=== PATIENT | female | born 1955 | race Caucasian/White ===

== ENCOUNTER 2021-05-17 08:00 | Outpatient (CLI) | payer MEDICARE, OTHER | END 2021-05-17 23:59 | disposition home or self-care (01) | LOC: LAB.S 08:00 | PROVIDERS: ATTEND Physician Assistant Medical | DX: R11.2 Nausea with vomiting, unspecified (principal); R19.7 Diarrhea, unspecified; R10.9 Unspecified abdominal pain; Z20.822 Contact with and (suspected) exposure to COVID-19 | CPT/HCPCS: 36415; 80053; 82150; 83690; 85025; U0004 ==

== ENCOUNTER 2021-05-17 10:16 | Outpatient (CLI) | payer MEDICARE, OTHER ==
[2021-05-17 15:14] LABS: BASOPHILS % (AUTO) 0.4 %; EOSINOPHILS # (AUTO) 0.2 10^3/uL (0.0-0.7); EOSINOPHILS % (AUTO) 2.6 %; HGB - HEMOGLOBIN 14.2 g/dL (12.0-16.0); LYMPHOCYTES # (AUTO) 0.3 10^3/uL (1.5-3.5); LYMPHOCYTES % (AUTO) 3.6 %; MEAN CORPUSCULAR HEMOGLOBIN 29.8 pg (27.0-31.0); MEAN CORPUSCULAR HGB CONC 32.3 g/dL (32.0-36.0); MEAN CORPUSCULAR VOLUME 92.4 fL (81.0-99.0); MONOCYTES # (AUTO) 0.7 10^3/uL (0.0-1.0); MONOCYTES % (AUTO) 7.5 %; NEUTROPHILS % (AUTO) 85.6 %; PLT - PLATELET COUNT 117 10^3/uL (130-450); RED BLOOD COUNT 4.76 10^6/uL (4.20-5.40); RED CELL DISTRIBUTION WIDTH 13.3 % (12.0-15.0); WHITE BLOOD COUNT 9.4 x10^3/uL (4.8-10.8)
[2021-05-17 15:31] LABS: SLIDE REVIEW? Indicated
[2021-05-17 16:18] LABS: PLATELET ESTIMATE, MANUAL DECREASED (<130,000) (NORMAL); PLATELET MORPHOLOGY NORMAL APPEARANCE (NORMAL); RBC MORPHOLOGY (MULTIPLE) NORMAL APPEARANCE (NORMAL); WBC MORPHOLOGY (MULTIPLE) NORMAL APPEARANCE (NORMAL)
[2021-05-17 16:20] LABS: ALBUMIN 3.9 g/dL (3.2-5.5); ALBUMIN/GLOBULIN RATIO 1.2 (1.0-2.2); BILIRUBIN,TOTAL 1.7 mg/dL (0.2-1.0); CALCIUM 9.1 mg/dL (8.5-10.3); CREATININE 1.1 mg/dL (0.4-1.0); POTASSIUM 3.9 mmol/L (3.5-5.0); TOTAL PROTEIN 7.1 g/dL (6.7-8.2)
== END 2021-05-17 10:17 | disposition home or self-care (01) ==
LOC: LAB.S 10:16
PROVIDERS: ATTEND Physician Assistant Medical
DX: R11.2 Nausea with vomiting, unspecified (principal); R19.7 Diarrhea, unspecified; R10.9 Unspecified abdominal pain
CPT/HCPCS: 36415; 80053; 82150; 83690; 85025

== ENCOUNTER 2021-05-18 13:51 | Inpatient (IN) | payer MEDICARE, OTHER ==
[2021-05-18] MEDS ORDERED: SODIUM CHLORIDE 0.9% 2,993.7 ML IV STA (14:30)
[2021-05-18 15:03] LABS: BASOPHILS # (AUTO) 0.1 10^3/uL (0.0-0.1); BASOPHILS % (AUTO) 0.6 %; EOSINOPHILS # (AUTO) 0.1 10^3/uL (0.0-0.7); EOSINOPHILS % (AUTO) 1.1 %; HCT - HEMATOCRIT 38.5 % (37.0-47.0); HGB - HEMOGLOBIN 12.6 g/dL (12.0-16.0); LYMPHOCYTES # (AUTO) 0.4 10^3/uL (1.5-3.5); LYMPHOCYTES % (AUTO) 3.8 %; MEAN CORPUSCULAR HEMOGLOBIN 29.9 pg (27.0-31.0); MEAN CORPUSCULAR HGB CONC 32.7 g/dL (32.0-36.0); MEAN CORPUSCULAR VOLUME 91.2 fL (81.0-99.0); MONOCYTES # (AUTO) 0.9 10^3/uL (0.0-1.0); MONOCYTES % (AUTO) 8.2 %; NEUTROPHILS # (AUTO) 9.5 10^3/uL (1.5-6.6); NEUTROPHILS % (AUTO) 85.9 %; PLT - PLATELET COUNT 134 10^3/uL (130-450); RED BLOOD COUNT 4.22 10^6/uL (4.20-5.40); RED CELL DISTRIBUTION WIDTH 13.7 % (12.0-15.0)
[2021-05-18 15:16] LABS: ALBUMIN 3.3 g/dL (3.2-5.5); ALBUMIN/GLOBULIN RATIO 1.2 (1.0-2.2); BILIRUBIN,TOTAL 1.4 mg/dL (0.2-1.0); CALCIUM 8.3 mg/dL (8.5-10.3); CREATININE 3.1 mg/dL (0.4-1.0); POTASSIUM 4.1 mmol/L (3.5-5.0); SLIDE REVIEW? Indicated; TOTAL PROTEIN 6.1 g/dL (6.7-8.2)
[2021-05-18 15:28] LABS: DIFFERENTIAL COMMENT MANUAL=AUTO DIFF; PLATELET ESTIMATE, MANUAL NORMAL (130-450,000) (NORMAL); PLATELET MORPHOLOGY NORMAL APPEARANCE (NORMAL); RBC MORPHOLOGY (MULTIPLE) NORMAL APPEARANCE (NORMAL)
--- NOTE | 2021-05-18 16:35 | ED Physician Documentation ---
History of Present Illness - Stated complaint Stated Complaint: DIARRHEA - Chief complaint Chief Complaint: Abd Pain - History obtained from History obtained from: Patient, Family - History of Present Illness Timing: How many weeks ago (1) Pain level max: 0 Pain level now: 0 - Additonal information Additional information: Patient is a 66-year-old female visiting from [place]. She is brought in by her today. She has recently on amoxicillin, upon finishing this she has developed profuse diarrhea. 10-12 times per day. No fevers. Seen at the walk- in clinic yesterday. Worsening today so brought her here. No fevers. No chills. He is concerned about potential dehydration. She has decreased mental status as well. Review of Systems Constitutional: denies: Fever, Chills GI: reports: Diarrhea. denies: Vomiting, Hematemesis, Bloody / black stool : denies: Dysuria, Frequency, Hesitancy Skin: denies: Rash Musculoskeletal: denies: Neck pain, Back pain Neurologic: denies: Headache PD PAST MEDICAL HISTORY - Past Medical History Past Medical History: Yes - Past Surgical History Past Surgical History: Yes General: Cholecystectomy - Allergies Allergies/Adverse Reactions: Allergies Allergy/AdvReac Type Severity Reaction Status Date / Time No Known Drug Allergies Allergy Verified 05/18/21 14:01 - Living Situation Living Situation: reports: With family Living Arrangement: reports: At home - Social History Does the pt smoke?: No Smoking Status: Never smoker Does the pt have substance abuse?: No - Family History Family history: reports: Non contributory PD ED PE NORMAL - Vitals Vital signs reviewed: Yes - General General: No acute distress, Well developed/nourished (Drowsy but arousable, pale) - HEENT HEENT: Atraumatic, PERRL, Other (Dry lips and tongue) - Neck Neck: Supple, no meningeal sign - Cardiac Cardiac: RRR - Respiratory Respiratory: No respiratory distress, Clear bilaterally - Abdomen Abdomen: Soft, Non tender, Non distended - Derm Derm: Other (Cool, dry) - Extremities Extremities: No edema - Neuro Neuro: wash test checker 2-12 intact, No motor deficit, No sensory deficit Results - Vitals Vitals: Vital Signs - 24 hr 05/18/21 05/18/21 05/18/21 14:01 14:42 15:12 Temperature 36.5 C Heart Rate 92 86 88 Respiratory 16 21 21 Rate Blood Pressure 80/50 L 90/59 L 87/56 L O2 Saturation 86 L 94 96 05/18/21 05/18/21 05/18/21 15:30 16:00 16:29 Temperature Heart Rate 89 89 92 Respiratory 17 20 21 Rate Blood Pressure 97/60 93/60 93/60 O2 Saturation 97 97 96 Oxygen O2 Source Room air - Labs Labs: Laboratory Tests 05/18/21 05/18/21 05/18/21 14:50 14:50 14:50 WBC 11.0 H RBC 4.22 Hgb 12.6 Hct 38.5 MCV 91.2 MCH 29.9 MCHC 32.7 RDW 13.7 Plt Count 134 MPV 12.0 H Neut # (Auto) 9.5 H Lymph # (Auto) 0.4 L Carlisle # (Auto) 0.9 Eos # (Auto) 0.1 Baso # (Auto) 0.1 Absolute Nucleated RBC 0.00 Band Neuts % (Manual) Not Reportable Abnorm Lymph % (Manual) Not Reportable Nucleated RBC % 0.0 Neutrophils # (Manual) Not Reportable Lymphocytes # (Manual) Not Reportable Monocytes # (Manual) Not Reportable Eosinophils # (Manual) Not Reportable Basophils # (Manual) Not Reportable Differential Comment MANUAL=AUTO DIFF Manual Slide Review Indicated Platelet Estimate NORMAL (130-450,000) Platelet Morphology NORMAL APPEARANCE RBC Morph Micro Appear NORMAL APPEARANCE Sodium 134 L Potassium 4.1 Chloride 97 L Carbon Dioxide 26 Anion Gap 11.0 BUN 34 H Creatinine 3.1 H Estimated GFR (MDRD) 15 L Glucose 112 H Lactic Acid 1.3 Calcium 8.3 L Total Bilirubin 1.4 H AST 23 ALT 22 Alkaline Phosphatase 75 Total Protein 6.1 L Albumin 3.3 Globulin 2.8 Albumin/Globulin Ratio 1.2 Nasal Adenovirus (PCR) Nasal B. parapertussis DNA (PCR) Nasal Coronavir 229E PCR Nasal Coronavir HKU1 PCR Nasal Coronavir NL63 PCR Nasal Coronavir OC43 PCR Nasal Enterovir/Rhinovir PCR Nasal Influenza B PCR Nasal Influenza A PCR Nasal Parainfluen 1 PCR Nasal Parainfluen 2 PCR Nasal Parainfluen 3 PCR Nasal Parainfluen 4 PCR Nasal RSV (PCR) Nasal B.pertussis DNA PCR Nasal C.pneumoniae (PCR) Praneeth Human Metapneumo PCR Nasal M.pneumoniae (PCR) Nasal SARS-CoV-2 (PCR) 05/18/21 16:07 WBC RBC Hgb Hct MCV MCH MCHC RDW Plt Count MPV Neut # (Auto) Lymph # (Auto) Carlisle # (Auto) Eos # (Auto) Baso # (Auto) Absolute Nucleated RBC Band Neuts % (Manual) Abnorm Lymph % (Manual) Nucleated RBC % Neutrophils # (Manual) Lymphocytes # (Manual) Monocytes # (Manual) Eosinophils # (Manual) Basophils # (Manual) Differential Comment Manual Slide Review Platelet Estimate Platelet Morphology RBC Morph Micro Appear Sodium Potassium Chloride Carbon Dioxide Anion Gap BUN Creatinine Estimated GFR (MDRD) Glucose Lactic Acid Calcium Total Bilirubin AST ALT Alkaline Phosphatase Total Protein Albumin Globulin Albumin/Globulin Ratio Nasal Adenovirus (PCR) NOT DETECTED Nasal B. parapertussis DNA (PCR) NOT DETECTED Nasal Coronavir 229E PCR NOT DETECTED Nasal Coronavir HKU1 PCR NOT DETECTED Nasal Coronavir NL63 PCR NOT DETECTED Nasal Coronavir OC43 PCR NOT DETECTED Nasal Enterovir/Rhinovir PCR NOT DETECTED Nasal Influenza B PCR NOT DETECTED Nasal Influenza A PCR NOT DETECTED Nasal Parainfluen 1 PCR NOT DETECTED Nasal Parainfluen 2 PCR NOT DETECTED Nasal Parainfluen 3 PCR NOT DETECTED Nasal Parainfluen 4 PCR NOT DETECTED Nasal RSV (PCR) NOT DETECTED Nasal B.pertussis DNA PCR NOT DETECTED Nasal C.pneumoniae (PCR) NOT DETECTED Praneeth Human Metapneumo PCR NOT DETECTED Nasal M.pneumoniae (PCR) NOT DETECTED Nasal SARS-CoV-2 (PCR) NOT DETECTED PD MEDICAL DECISION MAKING - ED course Complexity details: reviewed results, re-evaluated patient, considered differential, d/w patient, d/w family, d/w search engine optimization consultant ED course: 66-year-old female with profound dehydration. She has acute kidney injury. Very volume contracted. IV was started. IV fluids given. Her perfusion improved. Her mental status improved as well. Skin is warm and dry. She has acute kidney injury. Possible C. difficile? We will need this tested. We will admit her to the hospital for further care. Discussed the case with Dr. Snow, hospitalist who accepts This document was made in part using voice recognition software. While efforts are made to proofread this document, sound alike and grammatical errors may occur. Departure - Departure Disposition: ED Place in Observation Clinical Impression: Dehydration, Hypotension Acute renal failure Qualifiers: Acute renal failure type: unspecified Qualified Code(s): N17.9 - Acute kidney failure, unspecified Diarrhea Qualifiers: Diarrhea type: unspecified type Qualified Code(s): R19.7 - Diarrhea, unspecified Altered mental status Qualifiers: Altered mental status type: unspecified Qualified Code(s): R41.82 - Altered mental status, unspecified Condition: Stable
[2021-05-18] MEDS ORDERED: PROCHLORPERAZINE 10 MG/2 ML VIAL IVP PRN (16:52)
[2021-05-18] MEDS ORDERED: ONDANSETRON 4 MG/2 ML VIAL IVP PRN (16:52)
[2021-05-18] MEDS ORDERED: ACETAMINOPHEN 325 MG TABLET PO PRN (16:52)
[2021-05-18] MEDS ORDERED: SODIUM CHLORIDE FLUSH 0.9% 10 ML SYRINGE IVP PRN (16:52)
[2021-05-18 17:05] LABS: B. PARAPERTUSSIS- RESP PCR PAN NOT DETECTED; B. PERTUSSIS- RESP PCR PANEL NOT DETECTED; C. PNEUMONIAE- RESP PCR PANEL NOT DETECTED; CORONAVIRUS 229E-RESP PCR NOT DETECTED; CORONAVIRUS HKU1-RESP PCR NOT DETECTED; CORONAVIRUS NL63-RESP PCR NOT DETECTED; CORONAVIRUS OC43-RESP PCR NOT DETECTED; HUMAN METAPNEUMOVIRUS NOT DETECTED; INFLUENZA A- RESP PCR PANEL NOT DETECTED; INFLUENZA B - RESP PCR PANEL NOT DETECTED; M. PNEUMONIAE- RESP PCR PANEL NOT DETECTED; PARAINFLUENZA VIRUS 1 NOT DETECTED; PARAINFLUENZA VIRUS 2 NOT DETECTED; PARAINFLUENZA VIRUS 3 NOT DETECTED; PARAINFLUENZA VIRUS 4 NOT DETECTED; RHINOVIRUS/ENTEROVIRUS NOT DETECTED; RSV- RESP PCR PANEL NOT DETECTED; SARS-CoV-2 -RESP PCR PANEL NOT DETECTED
--- NOTE | 2021-05-18 17:08 | HISTORY & PHYSICAL EXAMINATION ---
Chief Complaint - Chief Complaint Chief Complaint: diarrhea History of Present Illness - Admitted From Admitted From:: ER - History Obtained From Records Reviewed: [facility] History obtained from: Patient and patient's Exam Limitations: no - History of Present Illness HPI Comment/Other: This is a 66-years old female with a past medical history significant for Hypertension, rheumatoid arthritis, depression and anxiety, Obese, Who present to ER complain of diarrhea And delirious. Now patient is alert and orientated. She reported she travel from [place] to [place] [facility] To visit her family. She had Cipro antibiotics which was prescribed at April 21 For her urinary tract infection. She taken 1 week Cipro. She suddenly showed diarrhea on last week Monday. Then she developed nausea and vomiting on Monday, She also visited walk-in clinic on yesterday. she became delirious on today. She take Imodium but only show little help. She denies fever, report chill. She denies chest pain, shortness of breathing. She also report right lower quadrant abdominal pain. She denies history of heart issue or diabetic disease. In the ER, her systolic blood pressure was down to 60. In routine laboratory tests that show patient had slightly elevated WBC at 11, creatinine is 3.1, her yesterday creatinine is 1.1. Patient was given 3 L normal saline in the ER, her Systolic blood pressure go up to 93, Now her systolic blood pressure was 76 again. Discussed the care plan And care goal with patient, Patient clearly requests DNR For her code status History - Family & Social History Family History: Mother: Alive and Well, Father: Family History Comment/Other: Patient reported her father at age 78 from liver cancer, Her mother is still living at age 91, She had a uterine cancer Social History Notes: Patient denies history of cigarette smoke, alcohol abuse or drug issue. She had 3 children. She live at her [place] [employer] - Allergies Allergies/Adverse Reactions: Allergies Allergy/AdvReac Type Severity Reaction Status Date / Time No Known Drug Allergies Allergy Verified 05/18/21 14:01 Review of Systems - Constitutional Constitutional: reports: Chills. denies: Fever - Eyes Eyes: denies: Pain, Field loss, Vision loss - Ears, Nose & Throat Ears, Nose & Throat: denies: Ear pain, Nosebleeds, Bleeding gums - Cardiovascular Cariovascular: denies: Irregular heart rate, Palpitations, Chest pain, Syncope, Exertional dyspnea, Decr. exercise tolerance - Respiratory Respiratory: denies: Cough, SOB at rest, SOB with exertion - Gastrointestinal Gastrointestinal: reports: Abdominal pain, Diarrhea, Nausea, Vomiting. denies: Rectal bleeding - Genitourinary Genitourinary: denies: Dysuria, Urgency - Musculoskeletal Musculoskeletal: denies: Muscle pain - Integumentary Integumentary: denies: Rash - Neurological Neurological: denies: Focal weakness, Headache, Dizziness, Numbness, Pre-e xisting deficit, Abnormal gait, Seizures, Incoordination, Slurred speech - Psychiatric Psychiatric: denies: Depression, Anxiety - Endocrine Endocrine: denies: Polyuria - Hematologic/Lymphatic Hematologic/Lymphatic: denies: Anemia Exam - Vital Signs Vital Signs: Vital Signs x48h Temp Pulse Resp BP Pulse Ox 05/18/21 16:29 92 21 93/60 96 05/18/21 16:00 89 20 93/60 97 05/18/21 15:30 89 17 97/60 97 05/18/21 15:12 88 21 87/56 L 96 05/18/21 14:42 86 21 90/59 L 94 05/18/21 14:01 36.5 C 92 16 80/50 L 86 L - Physical Exam General Appearance: positive: No acute distress, Alert. negative: Lethargic Eyes Bilateral: positive: Normal inspection, PERRL, No lid inflammation ENT: positive: ENT inspection nml. negative: Purulent nasal drainage Neck: positive: Nml inspection, Trachea midline. negative: Thyromegaly, Tracheal deviation Respiratory: positive: Chest non-tender, No respiratory distress, Breath sounds nml. negative: Wheezes, Rales Cardiovascular: positive: Regular rate & rhythm, No murmur. negative: Tachycardia, Bradycardia, Systolic murmur, Diastolic murmur Peripheral Pulses: positive: 2+ Abdomen: positive: Non-tender, No distention, Tenderness, Abnml bowel sounds, Other (Hypoactive bowel sounds) Back: positive: Nml inspection Skin: positive: Color nml, Warm, Dry. negative: Cyanosis Extremities: positive: Non-tender, Nml appearance Neurologic/Psychiatric: positive: Oriented x3, Sensation nml, Mood/affect nml. negative: Weakness, Sensory loss, Facial droop, Slurred/abnml speech, Depressed mood/affect Conclusion/Plan - Problem List (1) Hypotension Conclusion/Plan: Her last the blood pressure when I assessed her, it is 76/50 But the patient is alert and orientated. Patient reported severe diarrhea in the home For nearly 1 week. Patient traveled from [place] to [facility]. Patient creatinine is 3.1 on today, she had 1.1 yesterday. Hypotension is likely caused by severe dehydration, which present Diarrhea, nausea and vomiting. ER already give the patient 3 liter of normal saline, we will bolus NS, and continue intravenous IV fluids for patient. We will closely vital signs monitor patient and watch if pt need ICU bed for her Hemodynamic stable. Hold the patient Home blood pressure medicine (2) Diarrhea Conclusion/Plan: Patient take Cipro about 3 weeks ago for her UTI. Now she suddenly developed diarrhea and right lower quadrant abdominal pain. Also patient traveling from [place] to [facility] recently. Patient creatinine is 3.1, we may have imaging study after the patient proved Renal function. We will test for C. difficile, ova/parasite, stool culture. We will give patient intravenous IV fluids, continue crime laboratory analyst. (3) CARLOS (acute kidney injury) Conclusion/Plan: Patient creatinine 3.1 on today she had 1.1 on yesterday. Patient present diarrhea, nausea, vomiting, Severe dehydration. Patient was given 3 liter IV fluids in the ER, we will continue aggressive intravenous IV fluids for patient. Continue crime laboratory analyst,avoid Nephrotoxic agent. (4) Delirium Conclusion/Plan: Patient's report patient developed delirium today but right now when I assessment patient, patient is alert orientated. it is resolved. We will do neuro Check, treat her underlying severe dehydration, Diarrhea and nausea and vomiting. (5) Right lower quadrant abdominal pain Conclusion/Plan: Patient reported right lower quadrant abdominal pain with tender. Patient has no image study in the ER. Patient creatinine 3.1 Right now. If patient continues complain abdominal pain and creatinine improved on tomorrow, we will have imaging study for patient. Order pain medication for pain control, Clear liquid diet - Lab Results Fish Bones: 05/18/21 14:50 05/18/21 14:50 Core Measures - Anticipated LOS I expect patient to be DC'd or transferred within 96 hours.: Yes - DVT/VTE - Prophylaxis VTE/DVT Device ordered at admit?: Yes VTE/DVT Prophylaxis med ordered at admit?: Yes
[2021-05-18] MEDS ORDERED: ELECTROLYTE-A SOLUTION 1,000 ML IV ONE (17:50)
[2021-05-18] MEDS ORDERED: SODIUM CHLORIDE 0.9% 500 ML IV ONE (17:53)
[2021-05-18] MEDS ORDERED: oxyCODONE 5 MG TABLET PO PRN (18:09)
[2021-05-18] MEDS: SODIUM CHLORIDE 0.9% 1,000 ML IV SCH (18:11)
[2021-05-18] MEDS: SODIUM CHLORIDE FLUSH 0.9% 10 ML SYRINGE IVP SCH (18:11)
[2021-05-18] MEDS ORDERED: PIPERACILLIN/TAZOBACTAM 3.375 GM in SODIUM CHLORIDE 0.9% MINIBAG 100 ML IV ONE (19:00)
--- NOTE | 2021-05-18 20:02 | CT Report ---
PROCEDURE: Abdomen/Pelvis WO INDICATIONS: right lower quadrant pain TECHNIQUE: Noncontrast 5 mm thick sections acquired from the diaphragms to the symphysis. 5 mm coronal and sagi ttal reformats were then performed. For radiation dose reduction, the following was used: automated exposure control, adjustment of mA and/or kV according to patient size. COMPARISON: None. FINDINGS: Image quality: Excellent. ABDOMEN: Lung bases: Trace bilateral pleural effusion and patchy bibasilar infiltrate/atelectasis are seen. He art size is normal. Solid organs: Liver and spleen are normal in size. Gallbladder is surgically absent. Pancreas is n ormal in contours. No adrenal nodules. Left kidney is slightly atrophic in size compared to the righ t side. There is no renal stone or hydronephrosis. No perinephric fat stranding. No hydroureter. Peritoneum and bowel: There is no evidence of bowel obstruction. No gastric or small bowel wall thick ening is noted. There is no evidence of acute appendicitis. Moderate circumferential wall thickening involving mid to distal descending colon and sigmoid colon is seen most prominent involving mid to di stal sigmoid colon within right lower pelvis with pericolonic fat stranding. No abscess collection. N o free fluid of free air. Nodes and vessels: No retroperitoneal or mesenteric adenopathy by size criteria. Aorta and inferior vena cava are normal in caliber. Miscellaneous: No ventral hernias. PELVIS: Genitourinary: Bladder wall thickness is normal. Uterus and bilateral adnexa show no gross abnormal ity. Miscellaneous: No inguinal hernias or adenopathy. Bones: No suspicious bony lesions. No vertebral body compression fractures. IMPRESSION: 1. Finding is suggestive of infectious or inflammatory colitis involving mid to distal descending col on and sigmoid colon as above. No abscess collection. No free fluid of free air. 2. There is no evidence of acute appendicitis. No bowel obstruction. 3. Slightly atrophic appearing left kidney compared to right side. No renal stone or hydronephrosis. 4. Trace bilateral pleural effusion and bibasilar small patchy infiltrate/atelectasis. Reviewed by: Kiran Winter MD on 05/18/2021 8:00 PM PDT Approved by: Kiran Winter MD on 05/18/2021 8:00 PM PDT Station ID: [id number]
[2021-05-18] MEDS: HEPARIN 5,000 UNIT/ML VIAL SUBQ SCH (20:15)
[2021-05-18 22:07] LABS: MUDS CUTOFF CONCENTRATIONS CUTOFF CONC BELOW:
[2021-05-18 22:08] LABS: GLUCOSE, URINE (UA) NEGATIVE (NEGATIVE); KETONES,URINE (UA) TRACE mg/dL (NEGATIVE); LEUKOCYTE ESTERASE, URINE TRACE (NEGATIVE); NITRITE,URINE POSITIVE (NEGATIVE); OCCULT BLOOD,URINE NEGATIVE (NEGATIVE); PROTEIN,URINE 100 mg/dL (NEGATIVE); UROBILINOGEN,URINE 1 (NORMAL) E.U./dL (NORMAL)
[2021-05-18 22:16] LABS: BACTERIA,URINE Few /HPF (None Seen); BILIRUBIN,URINE NEGATIVE (NEGATIVE); CLARITY,URINE HAZY (CLEAR); ICTOTEST,URINE NEGATIVE; RBC,URINE 0-5 /HPF (0-5); SQUAMOUS EPITHELIAL CELL,UR MANY Squamous (<= Few)
[2021-05-18 22:17] LABS: CASTS, URINE 3-5 Course Granular /LPF
[2021-05-18 22:18] LABS: AMPHETAMINE SCREEN,URINE NEGATIVE (NEGATIVE); BARBITURATE SCREEN,UR NEGATIVE (NEGATIVE); BENZODIAZEPINES SCREEN, URINE NEGATIVE (NEGATIVE); COCAINE SCREEN URINE NEGATIVE (NEGATIVE); METHADONE SCREEN, URINE NEGATIVE (NEGATIVE); METHAMPHETAMINES SCREEN, URINE NEGATIVE (NEGATIVE); OPIATE SCREEN, URINE NEGATIVE (NEGATIVE); OXYCODONE SCREEN, URINE NEGATIVE (NEGATIVE); PROPOXYPHENE SCREEN, URINE NEGATIVE (NEGATIVE); THC CANNABINOID SCREEN, URINE NEGATIVE (NEGATIVE); TRICYCLIC ANTIDEPRESSANT,URINE NEGATIVE (NEGATIVE)
[2021-05-18 22:24] LABS: CREATININE 3.4 mg/dL (0.4-1.0); POTASSIUM 3.8 mmol/L (3.5-5.0)
[2021-05-19] MEDS: SODIUM CHLORIDE FLUSH 0.9% 10 ML SYRINGE IVP SCH ×6 (00:09→21:37)
[2021-05-19] MEDS: SODIUM CHLORIDE 0.9% 1,000 ML IV SCH ×3 (02:06→21:35)
[2021-05-19 05:32] LABS: HGB - HEMOGLOBIN 12.2 g/dL (12.0-16.0)
[2021-05-19 05:36] LABS: BASOPHILS % (AUTO) 0.7 %; EOSINOPHILS % (AUTO) 0.6 %; HCT - HEMATOCRIT 37.8 % (37.0-47.0); LYMPHOCYTES % (AUTO) 3.6 %; MEAN CORPUSCULAR HEMOGLOBIN 29.8 pg (27.0-31.0); MEAN CORPUSCULAR HGB CONC 32.3 g/dL (32.0-36.0); MEAN CORPUSCULAR VOLUME 92.2 fL (81.0-99.0); MEAN PLATELET VOLUME 11.9 fL (7.9-10.8); MONOCYTES % (AUTO) 6.9 %; NEUTROPHILS % (AUTO) 87.7 %; PLT - PLATELET COUNT 148 10^3/uL (130-450); WHITE BLOOD COUNT 15.2 x10^3/uL (4.8-10.8)
[2021-05-19 05:37] LABS: CALCIUM 7.9 mg/dL (8.5-10.3); CREATININE 3.9 mg/dL (0.4-1.0); POTASSIUM 4.2 mmol/L (3.5-5.0)
[2021-05-19 05:40] LABS: ABNORMAL LYMPHS % (MANUAL) 0 %
[2021-05-19 05:58] LABS: BAND NEUTROPHILS % (MANUAL) 13 %; LYMPHOCYTES # (MANUAL) 0.3 10^3/uL (1.5-3.5); LYMPHOCYTES % (MANUAL) 2 %; MONOCYTES # (MANUAL) 0.9 10^3/uL (0.0-1.0); RBC MORPHOLOGY (MULTIPLE) NORMAL APPEARANCE (NORMAL)
[2021-05-19 05:59] LABS: DIFFERENTIAL COMMENT MANUAL DIFFERENTIAL; PLATELET ESTIMATE, MANUAL NORMAL (130-450,000) (NORMAL)
[2021-05-19] MEDS: PANTOPRAZOLE 40 MG TABLET PO SCH (06:42)
[2021-05-19] MEDS ORDERED: DICLOFENAC SODIUM TP PRN (07:53)
[2021-05-19] MEDS ORDERED: DOCOSANOL TP PRN (07:53)
--- NOTE | 2021-05-19 07:56 | XRAY Report ---
PROCEDURE: Chest 1 View X-Ray INDICATIONS: Desaturation TECHNIQUE: One view of the chest was acquired. COMPARISON: None FINDINGS: Surgical changes and devices: None. Lungs and pleura: No pleural effusions or pneumothorax. Patchy opacities noted in the lung bases vinod aterally. Mediastinum: Mediastinal contours appear normal. Heart size is normal. Bones and chest wall: No suspicious bony lesions. Overlying soft tissues appear unremarkable. IMPRESSION: Patchy bibasilar opacities which could represent atelectasis, aspiration or pneumonia. Reviewed by: Ileana Flor MD, PhD on 05/19/2021 7:55 AM PDT Approved by: Ileana Flor MD, PhD on 05/19/2021 7:55 AM PDT Station ID: [id number]
[2021-05-19] MEDS: HEPARIN 5,000 UNIT/ML VIAL SUBQ SCH ×2 (08:24→20:35)
--- NOTE | 2021-05-19 08:30 | PROVIDER PROGRESS NOTE ---
Assessment/Plan - Problem List (1) Sepsis Assessment/Plan: Systolic blood pressure this morning was 76. Patient could not be aggressively administered IV hydration due to crackles on auscultation of the lungs. She was transferred to the ICU and started on Levophed. C. difficile test came back positive. CT of the abdomen/pelvis showed moderate circumferential wall thickening involving mid to distal descending colon and sigmoid colon with pericolonic fat stranding. Findings were consistent with infectious versus inflammatory colitis. This is likely secondary to C. difficile colitis Preliminary blood cultures subsequently also came back growing gram-positive cocci. She is currently on vancomycin 125 mg p.o. 4 times daily day #1 Vancomycin IV was also initiated with pharmacy dosing. Patient's white blood cell count today was 15. We will titrate Levophed to effect to keep MAP greater than 60 and systolic blood pressure greater than 100. Gentle IV hydration with normal saline at 100 mL/h. Repeat lactic acid was 0.8. She is afebrile. (2) C. difficile colitis Assessment/Plan: On vancomycin p.o. 125 mg 4 times daily. Frequency of diarrhea appears to have decreased. On gentle IV hydration with normal saline at 100 mL/h. Patient is on a probiotic with Florastor (3) Bacteremia Assessment/Plan: Blood cultures are positive for gram-positive cocci. Patient is on empiric antibiotics with vancomycin IV. Pharmacy to dose. (4) CARLOS (acute kidney injury) Assessment/Plan: Likely prerenal. Related to sepsis and hypovolemia from diarrhea There has been slight improvement with IV hydration. Creatinine is currently 3.3. Previous creatinine was 3.9. Expecting further improvement with IV hydration and treatment of infection. (5) Right lower quadrant abdominal pain Assessment/Plan: Secondary to C. difficile colitis as demonstrated on the CT of the abdomen/pelvis. Pain management as indicated. Patient is currently receiving antibiotics. (6) Elevated troponin Assessment/Plan: Suspect this is secondary to demand ischemia. EKG showed normal sinus rhythm. Initial troponin was 109.6. Will trend. 2D echocardiogram showed left ventricular size is normal. Mild concentric left ventricular hypertrophy noted. Overall left ventricular systolic function is normal with an ejection fraction of 60 to 65%. Normal diastology. No regional wall motion abnormality. The right ventricle is normal in size and function. The right atrial size is normal. The aorta is trileaflet. There is no evidence of aortic stenosis or aortic regurgitation. RVSP could not be determined. There is no pericardial ef fusion. There is an adipose layer noted in the pericardium. There was no mass or thrombus. There is no pleural effusion. - Current Meds Current Meds: Current Medications Generic Name Dose Route Start Last Admin Trade Name Freq PRN Reason Stop Dose Admin Acetaminophen 650 mg 05/18/21 16:52 05/18/21 20:08 Acetaminophen 325 Mg Tablet PO 650 mg Q4HR PRN Administration Pain 1 to 4 Heparin Sodium (Porcine) 5,000 unit 05/18/21 21:00 05/18/21 20:15 Heparin 5,000 Unit/Ml Vial SUBQ 5,000 unit BID IRENA Administration Pantoprazole Sodium 40 mg 05/19/21 07:00 05/19/21 06:42 Pantoprazole 40 Mg Tablet PO 40 mg QDAC IRENA Administration Sodium Chloride 10 ml 05/18/21 17:00 05/19/21 00:09 Sodium Chloride Flush 0.9% 10 Ml Syringe IVP Not Given 0100,0900,1700 IRENA - Lab Result Fish Bone Diagrams: 05/19/21 05:15 05/19/21 12:00 - Additional Planning My Orders: My Active Orders 05/19/21 08:25 Admit \ Transfer \ Status [RC] ONCE Daily Weight [RC] 0600 IO [RC] Q1HR Initiate Bowel Care Protocol [RC] QSHIFT Initiate Flu Vaccine Screening [RC] ONCE Initiate ICU Electrolyte Prot. [RC] .protocol Initiate Line Care Protocol [RC] .protocol Initiate Personal Care Protoco [RC] .protocol Initiate Pneumonia Vaccine Scr [RC] ONCE Vital Signs [RC] Q2HR MRSA PCR,CCU ADMIT Routine Sodium Chloride Flush 0.9% [Normal Saline Flush 0.9%] 10 ml IVP PRN PRN 05/19/21 09:00 NORepinephrine/D5W 8 mg/250 mL @ Titrate Dextrose 5% [D5w] 242 ml NORepinephr ine [Levophed] 8 mg IV 8 mcg/min Sodium Chloride Flush 0.9% [Normal Saline Flush 0.9%] 10 ml IVP 0100,0900,1700 Subjective - Subjective Patient Reports: Other (Patient appeared very fatigue, weak and mildly toxic. She denied chest pain, dyspnea, nausea or vomiting. She reported about 3 episodes of diarrhea overnight. Her systolic blood pressure was as low was 70 this morning.) Objective Vital Signs: Vital Signs - 24 hr 05/18/21 05/18/21 05/18/21 14:01 14:42 15:12 Temperature 36.5 C Heart Rate 92 86 88 Heart Rate [ Brachial] Respiratory 16 21 21 Rate Blood Pressure 80/50 L 90/59 L 87/56 L Blood Pressure [Left Brachial artery] Blood Pressure [Left Radial artery] Blood Pressure [Right Brachial artery] Blood Pressure [Right Radial artery] O2 Saturation 86 L 94 96 05/18/21 05/18/21 05/18/21 15:30 16:00 16:29 Temperature Heart Rate 89 89 92 Heart Rate [ Brachial] Respiratory 17 20 21 Rate Blood Pressure 97/60 93/60 93/60 Blood Pressure [Left Brachial artery] Blood Pressure [Left Radial artery] Blood Pressure [Right Brachial artery] Blood Pressure [Right Radial artery] O2 Saturation 97 97 96 05/18/21 05/18/21 05/18/21 17:00 17:30 18:00 Temperature Heart Rate 90 88 Heart Rate [ Brachial] Respiratory 20 21 Rate Blood Pressure 87/53 L 76/50 L Blood Pressure [Left Brachial artery] Blood Pressure [Left Radial artery] Blood Pressure [Right Brachial artery] Blood Pressure [Right Radial artery] O2 Saturation 97 100 89 L 05/18/21 05/18/21 05/19/21 18:05 20:08 00:01 Temperature 36.6 C 36.4 C L 36.4 C L Heart Rate Heart Rate [ 92 98 Brachial] Respiratory 19 18 Rate Blood Pressure Blood Pressure [Left Brachial artery] Blood Pressure [Left Radial artery] Blood Pressure 90/59 L 87/56 L [Right Brachial artery] Blood Pressure [Right Radial artery] O2 Saturation 100 2 L 05/19/21 05/19/21 05/19/21 00:14 05:05 07:50 Temperature 36.6 C 36.5 C Heart Rate Heart Rate [ 100 94 Brachial] Respiratory 20 18 Rate Blood Pressure Blood Pressure 81/45 L [Left Brachial artery] Blood Pressure 89/63 L [Left Radial artery] Blood Pressure [Right Brachial artery] Blood Pressure 73/40 L [Right Radial artery] O2 Saturation 93 96 94 Oxygen O2 Source Nasal cannula I&O (Last 24 Hrs): Intake and Output Totals x24h 05/17/21 05/18/2121 23:59 23:59 23:59 Intake Total 3763.700 1230 Balance 3763.700 1230 General: Oriented x3, Other (Weak, fatigue. Mildly toxic appearing) HEENT: PERRLA, EOMI Neck: Supple, No JVD Neuro: Alert, Non Focal, Oriented Times 3 Cardiovascular: Regular rate Respiratory: Chest non-tender, Other (mild crackles in lung bases) Abdomen: Normal bowel sounds, Soft Extremities: No clubbing, No cyanosis, No edema Skin: No rashes, No breakdown - Results Results: Laboratory Results WBC 15.2 x10^3/uL (4.8-10.8) H 05/19/21 05:15 RBC 4.10 10^6/uL (4.20-5.40) L 05/19/21 05:15 Hgb 12.2 g/dL (12.0-16.0) 05/19/21 05:15 Hct 37.8 % (37.0-47.0) 05/19/21 05:15 MCV 92.2 fL (81.0-99.0) 05/19/21 05:15 MCH 29.8 pg (27.0-31.0) 05/19/21 05:15 MCHC 32.3 g/dL (32.0-36.0) 05/19/21 05:15 RDW 14.0 % (12.0-15.0) 05/19/21 05:15 Plt Count 148 10^3/uL (130-450) 05/19/21 05:15 MPV 11.9 fL (7.9-10.8) H 05/19/21 05:15 Neut # (Auto) Not Reportable 05/19/21 05:15 Lymph # (Auto) Not Reportable 05/19/21 05:15 Schleicher # (Auto) Not Reportable 05/19/21 05:15 Eos # (Auto) Not Reportable 05/19/21 05:15 Baso # (Auto) Not Reportable 05/19/21 05:15 Absolute Nucleated RBC Not Reportable 05/19/21 05:15 Total Counted 100 05/19/21 05:15 Band Neuts % (Manual) 13 % (0-10) H 05/19/21 05:15 Abnorm Lymph % (Manual) 0 % 05/19/21 05:15 Nucleated RBC % Not Reportable 05/19/21 05:15 Neutrophils # (Manual) 14.0 10^3/uL (1.5-6.6) H 05/19/21 05:15 Lymphocytes # (Manual) 0.3 10^3/uL (1.5-3.5) L 05/19/21 05:15 Monocytes # (Manual) 0.9 10^3/uL (0.0-1.0) 05/19/21 05:15 Eosinophils # (Manual) 0.0 10^3/uL (0-0.7) 05/19/21 05:15 Basophils # (Manual) 0.0 10^3/uL (0-0.1) 05/19/21 05:15 Differential Comment MANUAL DIFFERENTIAL 05/19/21 05:15 Manual Slide Review Indicated 05/18/21 14:50 Platelet Estimate NORMAL (130-450,000) (NORMAL) 05/19/21 05:15 Platelet Morphology NORMAL APPEARANCE (NORMAL) 05/18/21 14:50 RBC Morph Micro Appear NORMAL APPEARANCE (NORMAL) 05/19/21 05:15 Sodium 135 mmol/L (135-145) 05/19/21 05:15 Potassium 4.2 mmol/L (3.5-5.0) 05/19/21 05:15 Chloride 102 mmol/L (101-111) 05/19/21 05:15 Carbon Dioxide 22 mmol/L (21-32) 05/19/21 05:15 Anion Gap 11.0 (6-13) 05/19/21 05:15 BUN 40 mg/dL (6-20) H 05/19/21 05:15 Creatinine 3.9 mg/dL (0.4-1.0) H 05/19/21 05:15 Estimated GFR (MDRD) 12 (>89) L 05/19/21 05:15 Glucose 98 mg/dL (70-100) 05/19/21 05:15 Lactic Acid 1.3 mmol/L (0.5-2.2) 05/18/21 14:50 Calcium 7.9 mg/dL (8.5-10.3) L 05/19/21 05:15 Total Bilirubin 1.4 mg/dL (0.2-1.0) H 05/18/21 14:50 AST 23 IU/L (10-42) 05/18/21 14:50 ALT 22 IU/L (10-60) 05/18/21 14:50 Alkaline Phosphatase 75 IU/L (42-121) 05/18/21 14:50 Total Protein 6.1 g/dL (6.7-8.2) L 05/18/21 14:50 Albumin 3.3 g/dL (3.2-5.5) 05/18/21 14:50 Globulin 2.8 g/dL (2.1-4.2) 05/18/21 14:50 Albumin/Globulin Ratio 1.2 (1.0-2.2) 05/18/21 14:50 Urine Color YELLOW 05/18/21 20:30 Urine Clarity HAZY (CLEAR) 05/18/21 20:30 Urine pH 5.0 PH (5.0-7.5) 05/18/21 20:30 Ur Specific [place] >=1.030 (1.002-1.030) H 05/18/21 20:30 Urine Protein 100 mg/dL (NEGATIVE) H 05/18/21 20:30 Urine Glucose (UA) NEGATIVE mg/dL (NEGATIVE) 05/18/21 20:30 Urine Ketones TRACE mg/dL (NEGATIVE) 05/18/21 20:30 Urine Occult Blood NEGATIVE (NEGATIVE) 05/18/21 20:30 Urine Nitrite POSITIVE (NEGATIVE) H 05/18/21 20:30 Urine Bilirubin NEGATIVE (NEGATIVE) 05/18/21 20:30 Urine Urobilinogen 1 (NORMAL) E.U./dL (NORMAL) 05/18/21 20:30 Ur Leukocyte Esterase TRACE (NEGATIVE) H 05/18/21 20:30 Urine RBC 0-5 /HPF (0-5) 05/18/21 20:30 Urine WBC 4-5 /HPF (0-5) 05/18/21 20:30 Ur Squamous Epith Cells MANY Squamous (<= Few) H 05/18/21 20:30 Urine Bacteria Few /HPF (None Seen) 05/18/21 20:30 Urine Casts 3-5 Course Granular /LPF 05/18/21 20:30 Ur Microscopic Review INDICATED 05/18/21 20:30 Urine Culture Comments NOT INDICATED 05/18/21 20:30 Nasal Adenovirus (PCR) NOT DETECTED 05/18/21 16:07 Nasal B. parapertussis DNA (PCR) NOT DETECTED 05/18/21 16:07 Nasal Coronavir 229E PCR NOT DETECTED 05/18/21 16:07 Nasal Coronavir HKU1 PCR NOT DETECTED 05/18/21 16:07 Nasal Coronavir NL63 PCR NOT DETECTED 05/18/21 16:07 Nasal Coronavir OC43 PCR NOT DETECTED 05/18/21 16:07 Nasal Enterovir/Rhinovir PCR NOT DETECTED 05/18/21 16:07 Nasal Influenza B PCR NOT DETECTED 05/18/21 16:07 Nasal Influenza A PCR NOT DETECTED 05/18/21 16:07 Nasal Parainfluen 1 PCR NOT DETECTED 05/18/21 16:07 Nasal Parainfluen 2 PCR NOT DETECTED 05/18/21 16:07 Nasal Parainfluen 3 PCR NOT DETECTED 05/18/21 16:07 Nasal Parainfluen 4 PCR NOT DETECTED 05/18/21 16:07 Nasal RSV (PCR) NOT DETECTED 05/18/21 16:07 Nasal B.pertussis DNA PCR NOT DETECTED 05/18/21 16:07 Nasal C.pneumoniae (PCR) NOT DETECTED 05/18/21 16:07 Praneeth Human Metapneumo PCR NOT DETECTED 05/18/21 16:07 Nasal M.pneumoniae (PCR) NOT DETECTED 05/18/21 16:07 Nasal SARS-CoV-2 (PCR) NOT DETECTED 05/18/21 16:07 Stl C. diff Tox B Gene POSITIVE (NEGATIVE) A* 05/19/21 05:05 Urine Opiates Screen NEGATIVE (NEGATIVE) 05/18/21 20:30 Ur Oxycodone Screen NEGATIVE (NEGATIVE) 05/18/21 20:30 Urine Methadone Screen NEGATIVE (NEGATIVE) 05/18/21 20:30 Ur Propoxyphene Screen NEGATIVE (NEGATIVE) 05/18/21 20:30 Ur Barbiturates Screen NEGATIVE (NEGATIVE) 05/18/21 20:30 Ur Tricyclics Screen NEGATIVE (NEGATIVE) 05/18/21 20:30 Ur Phencyclidine Scrn NEGATIVE (NEGATIVE) 05/18/21 20:30 Ur Amphetamine Screen NEGATIVE (NEGATIVE) 05/18/21 20:30 U Methamphetamines Scrn NEGATIVE (NEGATIVE) 05/18/21 20:30 U Benzodiazepines Scrn NEGATIVE (NEGATIVE) 05/18/21 20:30 Urine Cocaine Screen NEGATIVE (NEGATIVE) 05/18/21 20:30 U Cannabinoids Screen NEGATIVE (NEGATIVE) 05/18/21 20:30 ABX Reporting Has patient been on IV antibiotics over the past 48 hours?: Yes
[2021-05-19] MEDS: SACCHAROMYCES BOULARDII 250 MG CAPSULE PO SCH ×2 (10:05→18:08)
[2021-05-19] MEDS: VANCOMYCIN 125 MG CAPSULE PO SCH ×4 (10:05→20:36)
[2021-05-19] MEDS: PREGABALIN 100 MG CAPSULE PO SCH (10:05)
[2021-05-19] MEDS: lamoTRIgine 100 MG TABLET PO SCH (10:05)
[2021-05-19] MEDS ORDERED: PIPERACILLIN/TAZOBACTAM 3.375 GM in SODIUM CHLORIDE 0.9% MINIBAG 100 ML IV SCH ×3 (12:00)
[2021-05-19] MEDS ORDERED: VANCOMYCIN INJ 2 GM in SODIUM CHLORIDE 0.9% 500 ML IV SCH (12:00)
[2021-05-19 12:27] LABS: CALCIUM 7.9 mg/dL (8.5-10.3); CREATININE 3.3 mg/dL (0.4-1.0); POTASSIUM 3.6 mmol/L (3.5-5.0)
[2021-05-19 12:37] LABS: MAGNESIUM 1.9 mg/dL (1.7-2.8); PHOSPHORUS 3.4 mg/dL (2.5-4.6)
[2021-05-19] MEDS: MIN OIL/DIMETHICON/COCONUT OIL 92 GM TUBE TOP PRN ×2 (13:20→18:45)
--- NOTE | 2021-05-19 17:21 | ANESTHESIA PROCEDURE NOTE ---
Anesth Central Line Template - Central Line Central Line Preparation: Consent Obtained, Time out completed, Ultrasound used, Sterile prep and drape Central line location: Right IJ Central line type: Triple lumen Central line aftercare: Chlorhexidine disc placed, Secured, Placement confirmed, No complications, Bundle checklist complete, Pt tolerated well
--- NOTE | 2021-05-19 18:13 | XRAY Report ---
PROCEDURE: Chest for Line Placement INDICATIONS: for central line placement TECHNIQUE: One view of the chest was acquired. COMPARISON: None FINDINGS: Surgical changes and devices: A right IJ catheter is well-positioned in the right atrium. Lungs and pleura: There is right basilar atelectasis. No pleural effusions or pneumothorax. Lungs a re clear. Mediastinum: Mediastinal contours appear normal. Heart size is normal. Bones and chest wall: No suspicious bony lesions. Overlying soft tissues appear unremarkable. IMPRESSION: 1. Right IJ catheter appears well-positioned. 2. Right basilar atelectasis. Reviewed by: Duran Cowan on 05/19/2021 6:12 PM PDT Approved by: Duran Cowan on 05/19/2021 6:12 PM PDT Station ID: [id number]
[2021-05-19] MEDS: ATORVASTATIN 10 MG TABLET PO SCH (20:36)
[2021-05-20 05:08] LABS: BASOPHILS % (AUTO) 0.8 %; EOSINOPHILS % (AUTO) 1.5 %; HCT - HEMATOCRIT 34.7 % (37.0-47.0); HGB - HEMOGLOBIN 11.4 g/dL (12.0-16.0); MEAN CORPUSCULAR HEMOGLOBIN 29.8 pg (27.0-31.0); MEAN CORPUSCULAR HGB CONC 32.9 g/dL (32.0-36.0); MEAN CORPUSCULAR VOLUME 90.8 fL (81.0-99.0); MEAN PLATELET VOLUME 11.8 fL (7.9-10.8); MONOCYTES % (AUTO) 4.9 %; NEUTROPHILS % (AUTO) 89.8 %; PLT - PLATELET COUNT 166 10^3/uL (130-450); RED BLOOD COUNT 3.82 10^6/uL (4.20-5.40); WHITE BLOOD COUNT 15.7 x10^3/uL (4.8-10.8)
[2021-05-20 05:14] LABS: ABNORMAL LYMPHS % (MANUAL) 0 %; CALCIUM 7.8 mg/dL (8.5-10.3); CREATININE 1.9 mg/dL (0.4-1.0); POTASSIUM 3.6 mmol/L (3.5-5.0)
[2021-05-20 05:46] LABS: BAND NEUTROPHILS % (MANUAL) 10 %; BASOPHILS # (MANUAL) 0.2 10^3/uL (0-0.1); BASOPHILS % (MANUAL) 1 %; DIFFERENTIAL COMMENT MANUAL DIFFERENTIAL; EOSINOPHILS # (MANUAL) 0.5 10^3/uL (0-0.7); LYMPHOCYTES # (MANUAL) 0.8 10^3/uL (1.5-3.5); LYMPHOCYTES % (MANUAL) 5 %; MONOCYTES # (MANUAL) 0.8 10^3/uL (0.0-1.0); NEUTROPHILS # (MANUAL) 13.5 10^3/uL (1.5-6.6); PLATELET ESTIMATE, MANUAL NORMAL (130-450,000) (NORMAL); RBC MORPHOLOGY (MULTIPLE) NORMAL APPEARANCE (NORMAL)
[2021-05-20] MEDS: PANTOPRAZOLE 40 MG TABLET PO SCH (06:24)
--- NOTE | 2021-05-20 07:31 | PROVIDER PROGRESS NOTE ---
Assessment/Plan - Problem List (1) Sepsis Assessment/Plan: Patient is significantly improved today. Systolic blood pressure is in the 100s and sustaining even after levophed was discontinued this morning. She is afebrile. Her white blood cell count still elevated at 15 Continue IV hydration with normal saline at 100 mL/h. Continue vancomycin 125 mg p.o. 4 times daily day #2. Blood cultures eventually grew staph epidermidis. Suspect this is a contaminant. As a result will discontinue vancomycin IV at the end of today. If patient's vitals remained stable and she continues to improve will downgrade her status to MedSurg. Anticipating discharge in 2 days on 05/22/21. (2) C. difficile colitis Assessment/Plan: On vancomycin p.o. 125 mg 4 times daily. She reported 2 loose stools this morning. On gentle IV hydration with normal saline at 100 mL/h. Patient is on a probiotic with Florastor (3) Bacteremia Assessment/Plan: Blood cultures eventually grew staph epidermidis. This is suspected to be a contaminant. Will discontinue IV vancomycin at the end of the day. (4) CARLOS (acute kidney injury) Assessment/Plan: Improved. Likely prerenal. Related to sepsis and hypovolemia from diarrhea Creatinine today is 1.9 with and estimated GFR of 26. Yesterday creatinine was 3.3 with an estimated GFR of 14. We will continue gentle IV hydration with normal saline at 100 mL/h. We will continue to expect further improvement. (5) Right lower quadrant abdominal pain Assessment/Plan: Secondary to C. difficile colitis as demonstrated on the CT of the abdomen/pelvis. Improving. Patient denied any abdominal pain today. She tolerated a clear liquid diet well. We will advance diet to full liquids. (6) Elevated troponin Assessment/Plan: Suspect this is secondary to demand ischemia. EKG showed normal sinus rhythm. Troponin trend was 109.6 > 123.3 > 103.5 > 94.3. 2D echocardiogram showed left ventricular size is normal. Mild concentric left ventricular hypertrophy noted. Overall left ventricular systolic function is normal with an ejection fraction of 60 to 65%. Normal diastology. No regional wall motion abnormality. The right ventricle is normal in size and function. The right atrial size is normal. The aorta is trileaflet. There is no evidence of aortic stenosis or aortic regurgitation. RVSP could not be determined. There is no pericardial effusion. There is an adipose layer noted in the pericardium. There was no mass or thrombus. There is no pleural effusion. 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 This is currently likely precipitated by the stressor of an illness. Valacyclovir 500 mg p.o. twice daily ordered. We will also give lidocaine viscous as needed for pain - Current Meds Current Meds: Current Medications Generic Name Dose Route Start Last Admin Trade Name Freq PRN Reason Stop Dose Admin Acetaminophen 650 mg 05/18/21 16:52 05/18/21 20:08 Acetaminophen 325 Mg Tablet PO 650 mg Q4HR PRN Administration Pain 1 to 4 Atorvastatin Calcium 10 mg 05/19/21 21:00 05/19/21 20:36 Atorvastatin 10 Mg Tablet PO 10 mg QPM IRENA Administration Heparin Sodium (Porcine) 5,000 unit 05/18/21 21:00 05/19/21 20:35 Heparin 5,000 Unit/Ml Vial SUBQ 5,000 unit BID IRENA Administration Sodium Chloride 1,000 mls @ 100 mls/hr 05/19/21 07:30 05/19/21 21:35 Normal Saline 0.9% IV 100 mls/hr .Q10H IRENA Administration Norepinephrine Bitartrate 8 mg 250 mls @ 15 mls/hr 05/19/21 09:00 05/20/21 01:30 / Dextrose IV 8 mcg/min .[id number] IRENA 15 mls/hr Administration Protocol 8 MCG/MIN Lamotrigine 100 mg 05/19/21 09:00 05/19/21 10:05 Lamotrigine 100 Mg Tablet PO 100 mg DAILY IRENA Administration Mineral Oil 1 applic 05/18/21 19:36 05/19/21 18:45 Min Oil/Dimethicon/Coconut Oil 92 Gm Tube TOP 1 applic PRN PRN Administration Skin Care Pantoprazole Sodium 40 mg 05/19/21 07:00 05/20/21 06:24 Pantoprazole 40 Mg Tablet PO Not Given QDAC IRENA Pregabalin 200 mg 05/19/21 09:00 05/19/21 10:05 Pregabalin 100 Mg Capsule PO 200 mg DAILY IRENA Administration Saccharomyces Boulardii 250 mg 05/19/21 08:00 05/19/21 18:08 Saccharomyces Boulardii 250 Mg Capsule PO 250 mg BIDWM IRENA Administration Sodium Chloride 10 ml 05/19/21 09:00 05/19/21 21:37 Sodium Chloride Flush 0.9% 10 Ml Syringe IVP 10 ml 0100,0900,1700 IRENA Administration Vancomycin HCl 125 mg 05/19/21 09:00 05/19/21 20:36 Vancomycin 125 Mg Capsule PO 125 mg QID IRENA Administration - Lab Result Fish Bone Diagrams: 05/20/21 04:30 05/20/21 04:30 - Additional Planning My Orders: My Active Orders 05/19/21 08:25 Daily Weight [RC] 0600 IO [RC] Q1HR Initiate Bowel Care Protocol [RC] QSHIFT Initiate ICU Electrolyte Prot. [RC] .protocol Initiate Line Care Protocol [RC] .protocol Initiate Personal Care Protoco [RC] .protocol Vital Signs [RC] Q1HR Sodium Chloride Flush 0.9% [Normal Saline Flush 0.9%] 10 ml IVP PRN PRN 05/19/21 09:00 Dextrose 5% [D5w] 242 ml NORepinephrine [Levophed] 8 mg IV 8 mcg/min Sodium Chloride Flush 0.9% [Normal Saline Flush 0.9%] 10 ml IVP 0100,0900,1700 05/19/21 16:00 PICC Line Insert [RC] .ONCE 05/22/21 12:00 Vancomycin Inj [Vancomycin] 2 gm Sodium Chloride 0.9% [Normal Saline 0.9%] 500 ml IV Q72H Subjective - Subjective Patient Reports: Other (Patient is more alert, awake and interactive today. She denies chest pain, dyspnea, abdominal pain, nausea, vomiting, fever or chills. She tolerated clear liquid diet well. She had 2 episodes of loose stool today.) Objective Vital Signs: Vital Signs - 24 hr 05/19/21 05/19/21 05/19/21 07:50 09:00 09:17 Temperature 36.5 C 36.6 C Heart Rate [ 94 85 83 Brachial] Heart Rate [ Monitoring electrodes] Respiratory 18 17 18 Rate Blood Pressure 81/45 L [Left Brachial artery] Blood Pressure 72/45 L 99/61 [Left Radial artery] Blood Pressure 73/40 L [Right Radial artery] O2 Saturation 94 91 L 96 05/19/21 05/19/21 05/19/21 09:30 09:45 10:00 Temperature Heart Rate [ 86 94 94 Brachial] Heart Rate [ Monitoring electrodes] Respiratory 19 19 97 H Rate Blood Pressure [Left Brachial artery] Blood Pressure 103/67 112/65 99/65 [Left Radial artery] Blood Pressure [Right Radial artery] O2 Saturation 98 97 16 L 05/19/21 05/19/21 05/19/21 10:30 12:00 13:00 Temperature 36.9 C Heart Rate [ 94 Brachial] Heart Rate [ 95 97 Monitoring electrodes] Respiratory 19 21 20 Rate Blood Pressure [Left Brachial artery] Blood Pressure 97/69 85/61 L 108/75 [Left Radial artery] Blood Pressure [Right Radial artery] O2 Saturation 96 98 96 05/19/21 05/19/21 05/19/21 14:00 15:00 16:00 Temperature 36.9 C Heart Rate [ Brachial] Heart Rate [ 97 99 98 Monitoring electrodes] Respiratory 23 22 22 Rate Blood Pressure [Left Brachial artery] Blood Pressure 114/78 100/80 100/80 [Left Radial artery] Blood Pressure [Right Radial artery] O2 Saturation 98 96 99 05/19/21 05/19/21 05/19/21 17:00 18:00 19:00 Temperature 37.5 C Heart Rate [ Brachial] Heart Rate [ 101 H 102 H 104 H Monitoring electrodes] Respiratory 21 24 24 Rate Blood Pressure [Left Brachial artery] Blood Pressure 103/81 H 107/74 98/69 [Left Radial artery] Blood Pressure [Right Radial artery] O2 Saturation 97 94 93 05/19/21 05/19/21 05/20/21 21:00 23:00 00:21 Temperature 37.2 C Heart Rate [ Brachial] Heart Rate [ 93 95 94 Monitoring electrodes] Respiratory 18 23 22 Rate Blood Pressure [Left Brachial artery] Blood Pressure 88/54 L 106/50 L 106/60 [Left Radial artery] Blood Pressure [Right Radial artery] O2 Saturation 94 94 95 05/20/21 05/20/21 05/20/21 01:00 02:00 03:00 Temperature Heart Rate [ Brachial] Heart Rate [ 95 94 96 Monitoring electrodes] Respiratory 23 17 23 Rate Blood Pressure [Left Brachial artery] Blood Pressure 96/65 101/63 113/60 [Left Radial artery] Blood Pressure [Right Radial artery] O2 Saturation 98 97 93 05/20/21 05/20/21 05/20/21 04:00 05:00 06:00 Temperature 37.2 C Heart Rate [ Brachial] Heart Rate [ 94 90 92 Monitoring electrodes] Respiratory 20 22 20 Rate Blood Pressure [Left Brachial artery] Blood Pressure 120/62 100/65 106/60 [Left Radial artery] Blood Pressure [Right Radial artery] O2 Saturation 96 96 95 05/20/21 07:00 Temperature Heart Rate [ Brachial] Heart Rate [ 92 Monitoring electrodes] Respiratory 21 Rate Blood Pressure [Left Brachial artery] Blood Pressure 101/63 [Left Radial artery] Blood Pressure [Right Radial artery] O2 Saturation 95 Oxygen O2 Source Nasal cannula I&O (Last 24 Hrs): Intake and Output Totals x24h 05/18/21 05/19/21 05/20/21 23:59 23:59 23:59 Intake Total 3763.700 4296.000 199.5 Output Total 400 450 Balance 3763.700 3896.000 -250.5 General: Alert, Oriented x3, No acute distress HEENT: PERRLA, EOMI Neck: Supple, No JVD Neuro: Alert, Non Focal, Oriented Times 3 Cardiovascular: Regular rate, Normal S1, Normal S2 Respiratory: Chest non-tender, No respiratory distress, Breath sounds nml Abdomen: Normal bowel sounds, Soft, No tenderness Extremities: No clubbing, No cyanosis, No edema Skin: No rashes, No breakdown - Results Results: Laboratory Results WBC 15.7 x10^3/uL (4.8-10.8) H 05/20/21 04:30 RBC 3.82 10^6/uL (4.20-5.40) L 05/20/21 04:30 Hgb 11.4 g/dL (12.0-16.0) L 05/20/21 04:30 Hct 34.7 % (37.0-47.0) L 05/20/21 04:30 MCV 90.8 fL (81.0-99.0) 05/20/21 04:30 MCH 29.8 pg (27.0-31.0) 05/20/21 04:30 MCHC 32.9 g/dL (32.0-36.0) 05/20/21 04:30 RDW 14.0 % (12.0-15.0) 05/20/21 04:30 Plt Count 166 10^3/uL (130-450) 05/20/21 04:30 MPV 11.8 fL (7.9-10.8) H 05/20/21 04:30 Neut # (Auto) Not Reportable 05/20/21 04:30 Lymph # (Auto) Not Reportable 05/20/21 04:30 Wilkin # (Auto) Not Reportable 05/20/21 04:30 Eos # (Auto) Not Reportable 05/20/21 04:30 Baso # (Auto) Not Reportable 05/20/21 04:30 Absolute Nucleated RBC Not Reportable 05/20/21 04:30 Total Counted 100 05/20/21 04:30 Band Neuts % (Manual) 10 % (0-10) 05/20/21 04:30 Abnorm Lymph % (Manual) 0 % 05/20/21 04:30 Nucleated RBC % Not Reportable 05/20/21 04:30 Neutrophils # (Manual) 13.5 10^3/uL (1.5-6.6) H 05/20/21 04:30 Lymphocytes # (Manual) 0.8 10^3/uL (1.5-3.5) L 05/20/21 04:30 Monocytes # (Manual) 0.8 10^3/uL (0.0-1.0) 05/20/21 04:30 Eosinophils # (Manual) 0.5 10^3/uL (0-0.7) 05/20/21 04:30 Basophils # (Manual) 0.2 10^3/uL (0-0.1) H 05/20/21 04:30 Differential Comment MANUAL DIFFERENTIAL 05/20/21 04:30 Manual Slide Review Indicated 05/18/21 14:50 Platelet Estimate NORMAL (130-450,000) (NORMAL) 05/20/21 04:30 Platelet Morphology NORMAL APPEARANCE (NORMAL) 05/18/21 14:50 RBC Morph Micro Appear NORMAL APPEARANCE (NORMAL) 05/20/21 04:30 Sodium 137 mmol/L (135-145) 05/20/21 04:30 Potassium 3.6 mmol/L (3.5-5.0) 05/20/21 04:30 Chloride 106 mmol/L (101-111) 05/20/21 04:30 Carbon Dioxide 21 mmol/L (21-32) 05/20/21 04:30 Anion Gap 10.0 (6-13) 05/20/21 04:30 BUN 31 mg/dL (6-20) H 05/20/21 04:30 Creatinine 1.9 mg/dL (0.4-1.0) H 05/20/21 04:30 Estimated GFR (MDRD) 26 (>89) L 05/20/21 04:30 Glucose 102 mg/dL (70-100) H 05/20/21 04:30 Lactic Acid 0.8 mmol/L (0.5-2.2) 05/19/21 12:03 Calcium 7.8 mg/dL (8.5-10.3) L 05/20/21 04:30 Phosphorus 3.4 mg/dL (2.5-4.6) 05/19/21 11:40 Magnesium 1.9 mg/dL (1.7-2.8) 05/19/21 11:40 Total Bilirubin 1.4 mg/dL (0.2-1.0) H 05/18/21 14:50 AST 23 IU/L (10-42) 05/18/21 14:50 ALT 22 IU/L (10-60) 05/18/21 14:50 Alkaline Phosphatase 75 IU/L (42-121) 05/18/21 14:50 Total Creatine Kinase 178 IU/L (22-269) 05/19/21 08:10 Troponin I High Sens 94.3 ng/L (2.3-14.8) H* 05/20/21 04:30 Total Protein 6.1 g/dL (6.7-8.2) L 05/18/21 14:50 Albumin 3.3 g/dL (3.2-5.5) 05/18/21 14:50 Globulin 2.8 g/dL (2.1-4.2) 05/18/21 14:50 Albumin/Globulin Ratio 1.2 (1.0-2.2) 05/18/21 14:50 Urine Color YELLOW 05/18/21 20:30 Urine Clarity HAZY (CLEAR) 05/18/21 20:30 Urine pH 5.0 PH (5.0-7.5) 05/18/21 20:30 Ur Specific [place] >=1.030 (1.002-1.030) H 05/18/21 20:30 Urine Protein 100 mg/dL (NEGATIVE) H 05/18/21 20:30 Urine Glucose (UA) NEGATIVE mg/dL (NEGATIVE) 05/18/21 20:30 Urine Ketones TRACE mg/dL (NEGATIVE) 05/18/21 20:30 Urine Occult Blood NEGATIVE (NEGATIVE) 05/18/21 20:30 Urine Nitrite POSITIVE (NEGATIVE) H 05/18/21 20:30 Urine Bilirubin NEGATIVE (NEGATIVE) 05/18/21 20:30 Urine Urobilinogen 1 (NORMAL) E.U./dL (NORMAL) 05/18/21 20:30 Ur Leukocyte Esterase TRACE (NEGATIVE) H 05/18/21 20:30 Urine RBC 0-5 /HPF (0-5) 05/18/21 20:30 Urine WBC 4-5 /HPF (0-5) 05/18/21 20:30 Ur Squamous Epith Cells MANY Squamous (<= Few) H 05/18/21 20:30 Urine Bacteria Few /HPF (None Seen) 05/18/21 20:30 Urine Casts 3-5 Course Granular /LPF 05/18/21 20:30 Ur Microscopic Review INDICATED 05/18/21 20:30 Urine Culture Comments NOT INDICATED 05/18/21 20:30 Nasal Adenovirus (PCR) NOT DETECTED 05/18/21 16:07 Nasal B. parapertussis DNA (PCR) NOT DETECTED 05/18/21 16:07 Nasal Coronavir 229E PCR NOT DETECTED 05/18/21 16:07 Nasal Coronavir HKU1 PCR NOT DETECTED 05/18/21 16:07 Nasal Coronavir NL63 PCR NOT DETECTED 05/18/21 16:07 Nasal Coronavir OC43 PCR NOT DETECTED 05/18/21 16:07 Nasal Enterovir/Rhinovir PCR NOT DETECTED 05/18/21 16:07 Nasal Influenza B PCR NOT DETECTED 05/18/21 16:07 Nasal Influenza A PCR NOT DETECTED 05/18/21 16:07 Nasal Parainfluen 1 PCR NOT DETECTED 05/18/21 16:07 Nasal Parainfluen 2 PCR NOT DETECTED 05/18/21 16:07 Nasal Parainfluen 3 PCR NOT DETECTED 05/18/21 16:07 Nasal Parainfluen 4 PCR NOT DETECTED 05/18/21 16:07 Nasal RSV (PCR) NOT DETECTED 05/18/21 16:07 Nasal Screen MRSA (PCR) NEGATIVE (NEGATIVE) 05/19/21 17:55 Nasal B.pertussis DNA PCR NOT DETECTED 05/18/21 16:07 Nasal C.pneumoniae (PCR) NOT DETECTED 05/18/21 16:07 Praneeth Human Metapneumo PCR NOT DETECTED 05/18/21 16:07 Nasal M.pneumoniae (PCR) NOT DETECTED 05/18/21 16:07 Nasal SARS-CoV-2 (PCR) NOT DETECTED 05/18/21 16:07 Stl C. diff Tox B Gene POSITIVE (NEGATIVE) A* 05/19/21 05:05 Urine Opiates Screen NEGATIVE (NEGATIVE) 05/18/21 20:30 Ur Oxycodone Screen NEGATIVE (NEGATIVE) 05/18/21 20:30 Urine Methadone Screen NEGATIVE (NEGATIVE) 05/18/21 20:30 Ur Propoxyphene Screen NEGATIVE (NEGATIVE) 05/18/21 20:30 Ur Barbiturates Screen NEGATIVE (NEGATIVE) 05/18/21 20:30 Ur Tricyclics Screen NEGATIVE (NEGATIVE) 05/18/21 20:30 Ur Phencyclidine Scrn NEGATIVE (NEGATIVE) 05/18/21 20:30 Ur Amphetamine Screen NEGATIVE (NEGATIVE) 05/18/21 20:30 U Methamphetamines Scrn NEGATIVE (NEGATIVE) 05/18/21 20:30 U Benzodiazepines Scrn NEGATIVE (NEGATIVE) 05/18/21 20:30 Urine Cocaine Screen NEGATIVE (NEGATIVE) 05/18/21 20:30 U Cannabinoids Screen NEGATIVE (NEGATIVE) 05/18/21 20:30 ABX Reporting Has patient been on IV antibiotics over the past 48 hours?: Yes
[2021-05-20] MEDS: SODIUM CHLORIDE 0.9% 1,000 ML IV SCH ×2 (08:51→19:35)
[2021-05-20] MEDS: VANCOMYCIN 125 MG CAPSULE PO SCH ×4 (08:52→20:50)
[2021-05-20] MEDS: SACCHAROMYCES BOULARDII 250 MG CAPSULE PO SCH ×2 (08:52→17:26)
[2021-05-20] MEDS: PREGABALIN 100 MG CAPSULE PO SCH (08:52)
[2021-05-20] MEDS: lamoTRIgine 100 MG TABLET PO SCH (08:53)
[2021-05-20] MEDS: HEPARIN 5,000 UNIT/ML VIAL SUBQ SCH ×2 (08:59→20:52)
[2021-05-20] MEDS: SODIUM CHLORIDE FLUSH 0.9% 10 ML SYRINGE IVP SCH ×2 (09:56→17:28)
[2021-05-20] MEDS ORDERED: MAGIC MOUTHWASH (NYSTATIN) 120 ML BOTTLE PO PRN (10:21)
[2021-05-20] MEDS: LIDOCAINE VISCOUS 2% 15 ML UDC MM PRN (13:36)
[2021-05-20] MEDS: valACYclovir 500 MG TABLET PO SCH ×2 (13:36→20:50)
[2021-05-20] MEDS: ATORVASTATIN 10 MG TABLET PO SCH (20:50)
[2021-05-21] MEDS ORDERED: VANCOMYCIN INJ 2 GM in SODIUM CHLORIDE 0.9% 500 ML IV SCH ×2
[2021-05-21] MEDS: SODIUM CHLORIDE FLUSH 0.9% 10 ML SYRINGE IVP PRN (04:36)
[2021-05-21 05:04] LABS: BASOPHILS % (AUTO) 0.7 %; EOSINOPHILS % (AUTO) 0.8 %; HCT - HEMATOCRIT 30.6 % (37.0-47.0); HGB - HEMOGLOBIN 10.1 g/dL (12.0-16.0); LYMPHOCYTES % (AUTO) 2.4 %; MEAN CORPUSCULAR HEMOGLOBIN 29.9 pg (27.0-31.0); MEAN CORPUSCULAR VOLUME 90.5 fL (81.0-99.0); MEAN PLATELET VOLUME 11.2 fL (7.9-10.8); MONOCYTES % (AUTO) 4.9 %; NEUTROPHILS % (AUTO) 89.9 %; PLT - PLATELET COUNT 149 10^3/uL (130-450); RED BLOOD COUNT 3.38 10^6/uL (4.20-5.40); RED CELL DISTRIBUTION WIDTH 14.4 % (12.0-15.0); WHITE BLOOD COUNT 10.9 x10^3/uL (4.8-10.8)
[2021-05-21 05:09] LABS: ABNORMAL LYMPHS % (MANUAL) 0 %
[2021-05-21 05:11] LABS: CALCIUM 7.5 mg/dL (8.5-10.3); CREATININE 1.8 mg/dL (0.4-1.0); POTASSIUM 3.4 mmol/L (3.5-5.0)
[2021-05-21 05:15] LABS: MAGNESIUM 1.8 mg/dL (1.7-2.8); PHOSPHORUS 1.8 mg/dL (2.5-4.6)
[2021-05-21] MEDS ORDERED: SODIUM CHLORIDE 0.9% 500 ML IV PRN (05:34)
[2021-05-21 05:44] LABS: BAND NEUTROPHILS % (MANUAL) 8 %; DIFFERENTIAL COMMENT MANUAL DIFFERENTIAL; EOSINOPHILS # (MANUAL) 0.1 10^3/uL (0-0.7); LYMPHOCYTES # (MANUAL) 0.5 10^3/uL (1.5-3.5); LYMPHOCYTES % (MANUAL) 5 %; METAMYELOCYTES % (MANUAL) 1 %; MONOCYTES # (MANUAL) 0.4 10^3/uL (0.0-1.0); MYELOCYTES % (MANUAL) 1 %; NEUTROPHILS # (MANUAL) 9.6 10^3/uL (1.5-6.6); PLATELET ESTIMATE, MANUAL NORMAL (130-450,000) (NORMAL); RBC MORPHOLOGY (MULTIPLE) NORMAL APPEARANCE (NORMAL)
[2021-05-21] MEDS: LIDOCAINE VISCOUS 2% 15 ML UDC MM PRN (06:33)
[2021-05-21] MEDS: PANTOPRAZOLE 40 MG TABLET PO SCH (06:34)
[2021-05-21] MEDS: POTASSIUM CHLOR 20 MEQ/100 ML 20 MEQ/100 ML BAG IV SCH ×2 (06:34→08:03)
[2021-05-21] MEDS: SODIUM CHLORIDE 0.9% 1,000 ML IV SCH ×3 (06:52→23:08)
[2021-05-21] MEDS: HEPARIN 5,000 UNIT/ML VIAL SUBQ SCH ×2 (07:59→20:27)
[2021-05-21] MEDS ORDERED: POTASSIUM CHLORIDE 20 MEQ TABLET PO ONE (08:25)
[2021-05-21] MEDS: NEUTRA-PHOS 250 MG TABLET PO SCH ×2 (08:28→11:19)
[2021-05-21] MEDS: SACCHAROMYCES BOULARDII 250 MG CAPSULE PO SCH ×2 (08:28→16:19)
[2021-05-21] MEDS: PREGABALIN 100 MG CAPSULE PO SCH (08:28)
[2021-05-21] MEDS: lamoTRIgine 100 MG TABLET PO SCH (08:28)
[2021-05-21] MEDS: valACYclovir 500 MG TABLET PO SCH ×2 (08:29→20:17)
[2021-05-21] MEDS: VANCOMYCIN 125 MG CAPSULE PO SCH ×4 (08:29→20:18)
[2021-05-21] MEDS: SODIUM CHLORIDE FLUSH 0.9% 10 ML SYRINGE IVP SCH ×4 (08:29→23:08)
--- NOTE | 2021-05-21 08:35 | PROVIDER PROGRESS NOTE ---
Assessment/Plan - Problem List (1) Sepsis Assessment/Plan: Patient appeared weaker this morning. She had 4 episodes of diarrhea in 2 hours. Her systolic blood pressure was 89. Consequently she was administered 1 L bolus of normal saline over 2 hours. She remains afebrile and her white blood cell count improved from 15.7 down to 10.9. We will continue IV hydration with normal saline at 125 mL/h. Continue vancomycin 125 mg p.o. 4 times daily day #3. Due to apparent worsening of her clinical condition, current anticipated discharge would be 05/24/21. (2) C. difficile colitis Assessment/Plan: On vancomycin p.o. 125 mg 4 times daily. She reported 4 loose stools in 2 hours. On gentle IV hydration with normal saline at 125 mL/h. Patient is on a probiotic with Florastor (3) Bacteremia Assessment/Plan: Blood cultures eventually grew staph epidermidis. This is suspected to be a contaminant. IV vancomycin discontinued at the end of yesterday 05/20/21. (4) CARLOS (acute kidney injury) Assessment/Plan: Improved. Likely prerenal. Related to sepsis and hypovolemia from diarrhea Creatinine today is 1.8 with and estimated GFR of 28. We will continue gentle IV hydration with normal saline at 125 mL/h. We will continue to expect further improvement. (5) Right lower quadrant abdominal pain Assessment/Plan: Secondary to C. difficile colitis as demonstrated on the CT of the abdomen/pelvis. Improving. On full liquid diet. (6) Elevated troponin Assessment/Plan: Suspect this is secondary to demand ischemia. EKG showed normal sinus rhythm. Troponin trend was 109.6 > 123.3 > 103.5 > 94.3. 2D echocardiogram showed left ventricular size is normal. Mild concentric left ventricular hypertrophy noted. Overall left ventricular systolic function is normal with an ejection fraction of 60 to 65%. Normal diastology. No regional wall motion abnormality. The right ventricle is normal in size and function. The right atrial size is normal. The aorta is trileaflet. There is no evidence of aortic stenosis or aortic regurgitation. RVSP could not be determined. There is no pericardial effusion. There is an adipose layer noted in the pericardium. There was no mass or thrombus. There is no pleural effusion. 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 This is currently likely precipitated by the stressor of an illness. Valacyclovir 500 mg p.o. twice daily ordered. We will also give lidocaine viscous as needed for pain - Current Meds Current Meds: Current Medications Generic Name Dose Route Start Last Admin Trade Name Freq PRN Reason Stop Dose Admin Acetaminophen 650 mg 05/18/21 16:52 05/18/21 20:08 Acetaminophen 325 Mg Tablet PO 650 mg Q4HR PRN Administration Pain 1 to 4 Atorvastatin Calcium 10 mg 05/19/21 21:00 05/20/21 20:50 Atorvastatin 10 Mg Tablet PO 10 mg QPM IRENA Administration Heparin Sodium (Porcine) 5,000 unit 05/18/21 21:00 05/21/21 07:59 Heparin 5,000 Unit/Ml Vial SUBQ 5,000 unit BID IRENA Administration Potassium Chloride 20 meq in 100 mls @ 100 mls/hr 05/21/21 07:00 05/21/21 08:03 Potassium Chloride IV 05/21/21 08:59 100 mls/hr Q1H IRENA Administration Lamotrigine 100 mg 05/19/21 09:00 05/21/21 08:28 Lamotrigine 100 Mg Tablet PO 100 mg DAILY IRENA Administration Lidocaine HCl 5 ml 05/20/21 11:03 05/21/21 06:33 Lidocaine Viscous 2% 15 Ml Udc MM 5 ml Q4H PRN Administration Mouth Sore Pain Mineral Oil 1 applic 05/18/21 19:36 05/19/21 18:45 Min Oil/Dimethicon/Coconut Oil 92 Gm Tube TOP 1 applic PRN PRN Administration Skin Care Pantoprazole Sodium 40 mg 05/19/21 07:00 05/21/21 06:34 Pantoprazole 40 Mg Tablet PO 40 mg QDAC IRENA Administration Pregabalin 200 mg 05/19/21 09:00 05/21/21 08:28 Pregabalin 100 Mg Capsule PO 200 mg DAILY IRENA Administration Saccharomyces Boulardii 250 mg 05/19/21 08:00 05/21/21 08:28 Saccharomyces Boulardii 250 Mg Capsule PO 250 mg BIDWM IRENA Administration Sodium Chloride 10 ml 05/19/21 09:00 05/21/21 08:29 Sodium Chloride Flush 0.9% 10 Ml Syringe IVP 10 ml 0100,0900,1700 IRENA Administration Sodium Chloride 10 ml 05/19/21 08:25 05/21/21 04:36 Sodium Chloride Flush 0.9% 10 Ml Syringe IVP 20 ml PRN PRN Administration NEEDED PER PROVIDER ORDERS Sodium Phosphate 250 mg 05/21/21 08:00 05/21/21 08:28 Neutra-Phos 250 Mg Tablet PO 05/21/21 10:01 250 mg Q2H IRENA Administration Protocol Valacyclovir HCl 500 mg 05/20/21 12:00 05/21/21 08:29 Valacyclovir 500 Mg Tablet PO 500 mg BID IRENA Administration Vancomycin HCl 125 mg 05/19/21 09:00 05/21/21 08:29 Vancomycin 125 Mg Capsule PO 125 mg QID IRENA Administration - Lab Result Fish Bone Diagrams: 05/21/21 04:20 05/21/21 04:20 - Additional Planning My Orders: My Active Orders 05/20/21 11:03 Lidocaine Viscous 2% [Xylocaine Viscous 2%] 5 ml MM Q4H PRN 05/20/21 Lunch Full Liquid Diet [DIET] 05/20/21 12:00 valACYclovir [Valtrex] 500 mg PO BID 05/21/21 05:34 Sodium Chloride 0.9% [Normal Saline 0.9%] 500 ml IV Q24H Sodium Chloride Flush 0.9% [Normal Saline Flush 0.9%] 20 ml IVP PRN PRN 05/21/21 07:00 Potassium Chlor 20 Meq/100 ml [Potassium Chloride] 20 meq in 100 ml IV Q1H 05/21/21 08:00 Neutra-Phos [K-Phos Neutral] 250 mg PO Q2H 05/21/21 08:26 Sodium Chloride 0.9% [Normal Saline 0.9%] 1,000 ml IV 125 mls/hr Subjective - Subjective Patient Reports: Other (Patient appeared significantly weaker this morning. She had 4 episodes of diarrhea in 2 hours. Her systolic blood pressure was in the high 80s.) Objective Vital Signs: Vital Signs - 24 hr 05/20/21 05/20/21 05/20/21 08:45 09:00 09:15 Temperature Heart Rate [ 96 95 94 Monitoring electrodes] Respiratory 22 24 22 Rate Blood Pressure [Left Brachial artery] Blood Pressure 123/69 122/68 104/62 [Left Radial artery] O2 Saturation 96 95 92 05/20/21 05/20/21 05/20/21 09:30 09:45 10:00 Temperature Heart Rate [ 94 102 H 92 Monitoring electrodes] Respiratory 22 20 24 Rate Blood Pressure [Left Brachial artery] Blood Pressure 99/62 108/81 H 106/64 [Left Radial artery] O2 Saturation 92 91 L 05/20/21 05/20/21 05/20/21 11:00 12:00 13:00 Temperature 36.6 C Heart Rate [ 96 98 107 H Monitoring electrodes] Respiratory 30 H 27 H 107 H Rate Blood Pressure [Left Brachial artery] Blood Pressure 108/58 L 104/68 107/60 [Left Radial artery] O2 Saturation 92 94 92 05/20/21 05/20/21 05/20/21 14:00 15:00 16:00 Temperature Heart Rate [ 109 H 106 H 101 H Monitoring electrodes] Respiratory 20 24 26 H Rate Blood Pressure [Left Brachial artery] Blood Pressure 119/66 90/49 L 102/48 L [Left Radial artery] O2 Saturation 95 93 92 05/20/21 05/20/21 05/20/21 17:00 18:00 19:00 Temperature 37.0 C Heart Rate [ 107 H 109 H 103 H Monitoring electrodes] Respiratory 19 20 29 H Rate Blood Pressure [Left Brachial artery] Blood Pressure 114/58 L 116/58 L 105/47 L [Left Radial artery] O2 Saturation 94 16 L 05/20/21 05/20/21 05/20/21 20:00 21:00 22:00 Temperature 36.9 C Heart Rate [ 101 H 99 101 H Monitoring electrodes] Respiratory 92 H 26 H 28 H Rate Blood Pressure 116/47 L 115/54 L 107/56 L [Left Brachial artery] Blood Pressure [Left Radial artery] O2 Saturation 18 L 100 92 05/20/21 05/21/21 05/21/21 23:00 00:00 01:00 Temperature 36.9 C Heart Rate [ 106 H 100 96 Monitoring electrodes] Respiratory 19 26 H 25 H Rate Blood Pressure 104/57 L 100/53 L 94/57 L [Left Brachial artery] Blood Pressure [Left Radial artery] O2 Saturation 100 92 93 05/21/21 05/21/21 05/21/21 02:11 03:00 04:00 Temperature 36.9 C 36.9 C Heart Rate [ 97 95 93 Monitoring electrodes] Respiratory 25 H 25 H 24 Rate Blood Pressure 109/85 H 101/52 L 99/56 L [Left Brachial artery] Blood Pressure [Left Radial artery] O2 Saturation 94 93 95 05/21/21 05/21/21 05/21/21 05:05 06:23 07:00 Temperature 36.9 C Heart Rate [ 93 97 94 Monitoring electrodes] Respiratory 25 H 27 H 22 Rate Blood Pressure 92/52 L 118/64 97/51 L [Left Brachial artery] Blood Pressure [Left Radial artery] O2 Saturation 94 94 93 Oxygen O2 Source Oxymask I&O (Last 24 Hrs): Intake and Output Totals x24h 05/19/21 05/20/21 05/21/21 23:59 23:59 23:59 Intake Total 4296.000 4120.583 1550 Output Total 400 2110 100 Balance 3896.000 2010.583 1450 General: Alert, Oriented x3, Mild distress (left lower quad of abdomen), Other (Weak) HEENT: PERRLA, EOMI Neck: Supple, No JVD Neuro: Alert, Non Focal, Oriented Times 3 Cardiovascular: Regular rate, Normal S1, Normal S2 Respiratory: Chest non-tender, No respiratory distress, Other (Coarse breath sounds on the left) Abdomen: Normal bowel sounds, Soft, Other (mild tenderness on the left lower quadrant) Extremities: No clubbing, No cyanosis, No edema - Results Results: Laboratory Results WBC 10.9 x10^3/uL (4.8-10.8) H 05/21/21 04:20 RBC 3.38 10^6/uL (4.20-5.40) L 05/21/21 04:20 Hgb 10.1 g/dL (12.0-16.0) L 05/21/21 04:20 Hct 30.6 % (37.0-47.0) L 05/21/21 04:20 MCV 90.5 fL (81.0-99.0) 05/21/21 04:20 MCH 29.9 pg (27.0-31.0) 05/21/21 04:20 MCHC 33.0 g/dL (32.0-36.0) 05/21/21 04:20 RDW 14.4 % (12.0-15.0) 05/21/21 04:20 Plt Count 149 10^3/uL (130-450) 05/21/21 04:20 MPV 11.2 fL (7.9-10.8) H 05/21/21 04:20 Neut # (Auto) Not Reportable 05/21/21 04:20 Lymph # (Auto) Not Reportable 05/21/21 04:20 [place] # (Auto) Not Reportable 05/21/21 04:20 Eos # (Auto) Not Reportable 05/21/21 04:20 Baso # (Auto) Not Reportable 05/21/21 04:20 Absolute Nucleated RBC Not Reportable 05/21/21 04:20 Total Counted 100 05/21/21 04:20 Band Neuts % (Manual) 8 % (0-10) 05/21/21 04:20 Abnorm Lymph % (Manual) 0 % 05/21/21 04:20 Metamyelocytes % 1 % (-0) H 05/21/21 04:20 Myelocytes % 1 % (-0) H 05/21/21 04:20 Nucleated RBC % Not Reportable 05/21/21 04:20 Neutrophils # (Manual) 9.6 10^3/uL (1.5-6.6) H 05/21/21 04:20 Lymphocytes # (Manual) 0.5 10^3/uL (1.5-3.5) L 05/21/21 04:20 Monocytes # (Manual) 0.4 10^3/uL (0.0-1.0) 05/21/21 04:20 Eosinophils # (Manual) 0.1 10^3/uL (0-0.7) 05/21/21 04:20 Basophils # (Manual) 0.0 10^3/uL (0-0.1) 05/21/21 04:20 Differential Comment MANUAL DIFFERENTIAL 05/21/21 04:20 Manual Slide Review Indicated 05/18/21 14:50 Platelet Estimate NORMAL (130-450,000) (NORMAL) 05/21/21 04:20 Platelet Morphology NORMAL APPEARANCE (NORMAL) 05/18/21 14:50 RBC Morph Micro Appear NORMAL APPEARANCE (NORMAL) 05/21/21 04:20 Sodium 137 mmol/L (135-145) 05/21/21 04:20 Potassium 3.4 mmol/L (3.5-5.0) L 05/21/21 04:20 Chloride 108 mmol/L (101-111) 05/21/21 04:20 Carbon Dioxide 20 mmol/L (21-32) L 05/21/21 04:20 Anion Gap 9.0 (6-13) 05/21/21 04:20 BUN 25 mg/dL (6-20) H 05/21/21 04:20 Creatinine 1.8 mg/dL (0.4-1.0) H 05/21/21 04:20 Estimated GFR (MDRD) 28 (>89) L 05/21/21 04:20 Glucose 98 mg/dL (70-100) 05/21/21 04:20 Lactic Acid 0.8 mmol/L (0.5-2.2) 05/19/21 12:03 Calcium 7.5 mg/dL (8.5-10.3) L 05/21/21 04:20 Phosphorus 1.8 mg/dL (2.5-4.6) L 05/21/21 04:37 Magnesium 1.8 mg/dL (1.7-2.8) 05/21/21 04:37 Total Bilirubin 1.4 mg/dL (0.2-1.0) H 05/18/21 14:50 AST 23 IU/L (10-42) 05/18/21 14:50 ALT 22 IU/L (10-60) 05/18/21 14:50 Alkaline Phosphatase 75 IU/L (42-121) 05/18/21 14:50 Total Creatine Kinase 178 IU/L (22-269) 05/19/21 08:10 Troponin I High Sens 94.3 ng/L (2.3-14.8) H* 05/20/21 04:30 Total Protein 6.1 g/dL (6.7-8.2) L 05/18/21 14:50 Albumin 2.1 g/dL (3.2-5.5) L 05/21/21 04:59 Globulin 2.8 g/dL (2.1-4.2) 05/18/21 14:50 Albumin/Globulin Ratio 1.2 (1.0-2.2) 05/18/21 14:50 Urine Color YELLOW 05/18/21 20:30 Urine Clarity HAZY (CLEAR) 05/18/21 20:30 Urine pH 5.0 PH (5.0-7.5) 05/18/21 20:30 Ur Specific [place] >=1.030 (1.002-1.030) H 05/18/21 20:30 Urine Protein 100 mg/dL (NEGATIVE) H 05/18/21 20:30 Urine Glucose (UA) NEGATIVE mg/dL (NEGATIVE) 05/18/21 20:30 Urine Ketones TRACE mg/dL (NEGATIVE) 05/18/21 20:30 Urine Occult Blood NEGATIVE (NEGATIVE) 05/18/21 20:30 Urine Nitrite POSITIVE (NEGATIVE) H 05/18/21 20:30 Urine Bilirubin NEGATIVE (NEGATIVE) 05/18/21 20:30 Urine Urobilinogen 1 (NORMAL) E.U./dL (NORMAL) 05/18/21 20:30 Ur Leukocyte Esterase TRACE (NEGATIVE) H 05/18/21 20:30 Urine RBC 0-5 /HPF (0-5) 05/18/21 20:30 Urine WBC 4-5 /HPF (0-5) 05/18/21 20:30 Ur Squamous Epith Cells MANY Squamous (<= Few) H 05/18/21 20:30 Urine Bacteria Few /HPF (None Seen) 05/18/21 20:30 Urine Casts 3-5 Course Granular /LPF 05/18/21 20:30 Ur Microscopic Review INDICATED 05/18/21 20:30 Urine Culture Comments NOT INDICATED 05/18/21 20:30 Nasal Adenovirus (PCR) NOT DETECTED 05/18/21 16:07 Nasal B. parapertussis DNA (PCR) NOT DETECTED 05/18/21 16:07 Nasal Coronavir 229E PCR NOT DETECTED 05/18/21 16:07 Nasal Coronavir HKU1 PCR NOT DETECTED 05/18/21 16:07 Nasal Coronavir NL63 PCR NOT DETECTED 05/18/21 16:07 Nasal Coronavir OC43 PCR NOT DETECTED 05/18/21 16:07 Nasal Enterovir/Rhinovir PCR NOT DETECTED 05/18/21 16:07 Nasal Influenza B PCR NOT DETECTED 05/18/21 16:07 Nasal Influenza A PCR NOT DETECTED 05/18/21 16:07 Nasal Parainfluen 1 PCR NOT DETECTED 05/18/21 16:07 Nasal Parainfluen 2 PCR NOT DETECTED 05/18/21 16:07 Nasal Parainfluen 3 PCR NOT DETECTED 05/18/21 16:07 Nasal Parainfluen 4 PCR NOT DETECTED 05/18/21 16:07 Nasal RSV (PCR) NOT DETECTED 05/18/21 16:07 Nasal Screen MRSA (PCR) NEGATIVE (NEGATIVE) 05/19/21 17:55 Nasal B.pertussis DNA PCR NOT DETECTED 05/18/21 16:07 Nasal C.pneumoniae (PCR) NOT DETECTED 05/18/21 16:07 Praneeth Human Metapneumo PCR NOT DETECTED 05/18/21 16:07 Nasal M.pneumoniae (PCR) NOT DETECTED 05/18/21 16:07 Nasal SARS-CoV-2 (PCR) NOT DETECTED 05/18/21 16:07 Stl C. diff Tox B Gene POSITIVE (NEGATIVE) A* 05/19/21 05:05 Urine Opiates Screen NEGATIVE (NEGATIVE) 05/18/21 20:30 Ur Oxycodone Screen NEGATIVE (NEGATIVE) 05/18/21 20:30 Urine Methadone Screen NEGATIVE (NEGATIVE) 05/18/21 20:30 Ur Propoxyphene Screen NEGATIVE (NEGATIVE) 05/18/21 20:30 Ur Barbiturates Screen NEGATIVE (NEGATIVE) 05/18/21 20:30 Ur Tricyclics Screen NEGATIVE (NEGATIVE) 05/18/21 20:30 Ur Phencyclidine Scrn NEGATIVE (NEGATIVE) 05/18/21 20:30 Ur Amphetamine Screen NEGATIVE (NEGATIVE) 05/18/21 20:30 U Methamphetamines Scrn NEGATIVE (NEGATIVE) 05/18/21 20:30 U Benzodiazepines Scrn NEGATIVE (NEGATIVE) 05/18/21 20:30 Urine Cocaine Screen NEGATIVE (NEGATIVE) 05/18/21 20:30 U Cannabinoids Screen NEGATIVE (NEGATIVE) 05/18/21 20:30 Ova & Parasites SEE NOTE 05/18/21 23:18 ABX Reporting Has patient been on IV antibiotics over the past 48 hours?: No
[2021-05-21 09:13] LABS: CALCIUM, IONIZED 1.14 mmol/L (1.15-1.33); VBG PH 7.362 (7.31-7.41)
[2021-05-21] MEDS ORDERED: SODIUM CHLORIDE 0.9% 1,000 ML IV ONE ×2 (10:20→16:48)
[2021-05-21 14:32] LABS: MAGNESIUM 1.8 mg/dL (1.7-2.8); POTASSIUM 4.2 mmol/L (3.5-5.0)
[2021-05-21] MEDS ORDERED: MAGNESIUM SULFATE 2 GRAM 2 GM/50 ML BAG IV ONE (16:47)
[2021-05-21] MEDS ORDERED: POTASSIUM CHLOR 20 MEQ/100 ML 20 MEQ/100 ML BAG IV ONE (16:48)
[2021-05-21] MEDS ORDERED: SODIUM PHOSPHATE 21 MMOL in SODIUM CHLORIDE 0.9% 250 ML IV ONE (18:00)
[2021-05-21] MEDS: ATORVASTATIN 10 MG TABLET PO SCH (20:17)
[2021-05-22] MEDS: SODIUM CHLORIDE FLUSH 0.9% 10 ML SYRINGE IVP PRN ×2 (04:56)
[2021-05-22 05:18] LABS: HGB - HEMOGLOBIN 9.4 g/dL (12.0-16.0)
[2021-05-22 05:20] LABS: BASOPHILS % (AUTO) 0.8 %; EOSINOPHILS % (AUTO) 4.9 %; HCT - HEMATOCRIT 28.8 % (37.0-47.0); LYMPHOCYTES % (AUTO) 3.4 %; MEAN CORPUSCULAR HEMOGLOBIN 30.1 pg (27.0-31.0); MEAN CORPUSCULAR HGB CONC 32.6 g/dL (32.0-36.0); MEAN CORPUSCULAR VOLUME 92.3 fL (81.0-99.0); MEAN PLATELET VOLUME 11.1 fL (7.9-10.8); MONOCYTES % (AUTO) 4.7 %; NEUTROPHILS % (AUTO) 84.9 %; PLT - PLATELET COUNT 157 10^3/uL (130-450); RED BLOOD COUNT 3.12 10^6/uL (4.20-5.40); RED CELL DISTRIBUTION WIDTH 15.1 % (12.0-15.0)
[2021-05-22 05:22] LABS: CALCIUM 7.4 mg/dL (8.5-10.3); CREATININE 2.9 mg/dL (0.4-1.0); POTASSIUM 3.8 mmol/L (3.5-5.0)
[2021-05-22 05:24] LABS: ABNORMAL LYMPHS % (MANUAL) 0 %
[2021-05-22 05:38] LABS: MAGNESIUM 2.6 mg/dL (1.7-2.8); PHOSPHORUS 2.2 mg/dL (2.5-4.6)
[2021-05-22] MEDS: PANTOPRAZOLE 40 MG TABLET PO SCH (05:53)
[2021-05-22 06:11] LABS: BAND NEUTROPHILS % (MANUAL) 1 %; DIFFERENTIAL COMMENT MANUAL DIFFERENTIAL; EOSINOPHILS # (MANUAL) 0.2 10^3/uL (0-0.7); LYMPHOCYTES # (MANUAL) 0.5 10^3/uL (1.5-3.5); LYMPHOCYTES % (MANUAL) 6 %; MONOCYTES # (MANUAL) 0.3 10^3/uL (0.0-1.0); PLATELET ESTIMATE, MANUAL NORMAL (130-450,000) (NORMAL); PLATELET MORPHOLOGY NORMAL APPEARANCE (NORMAL); RBC MORPHOLOGY (MULTIPLE) NORMAL APPEARANCE (NORMAL); WBC MORPHOLOGY (MULTIPLE) NORMAL APPEARANCE (NORMAL)
[2021-05-22] MEDS: SODIUM CHLORIDE 0.9% 1,000 ML IV SCH ×3 (06:40→17:15)
[2021-05-22] MEDS ORDERED: SODIUM CHLORIDE 0.9% 1,000 ML IV ONE (07:29)
--- NOTE | 2021-05-22 07:32 | PROVIDER PROGRESS NOTE ---
Assessment/Plan - Problem List (1) Sepsis Assessment/Plan: Patient appeared more alert, awake and oriented this morning. The frequency of diarrhea decreased today. However her systolic blood pressure was 77 overnight. Consequently she was administered 1 L bolus of normal saline over 2 hours. She remains afebrile and her white blood cell count improved from 10.9 to 9.0 We will continue IV hydration with normal saline at 125 mL/h. Continue vancomycin 125 mg p.o. 4 times daily day #3. Due to apparent worsening of her clinical condition, current anticipated discharge would be 05/24/21. (2) C. difficile colitis Assessment/Plan: On vancomycin p.o. 125 mg 4 times daily. She reported 4 loose stools in 2 hours. On gentle IV hydration with normal saline at 125 mL/h. Patient is on a probiotic with Florastor (3) Bacteremia Assessment/Plan: Blood cultures eventually grew staph epidermidis. This is suspected to be a contaminant. IV vancomycin discontinued at the end of yesterday 05/20/21. (4) CARLOS (acute kidney injury) Assessment/Plan: Likely prerenal. Related to sepsis and hypovolemia from diarrhea Creatinine today is 2.9 with and estimated GFR of 16. Worse than patient's creatinine yesterday of 1.8 with an estimated GFR 28. It coincided with significant drop in patient's blood pressure yesterday. Her systolic blood pressure was 77 overnight. She was given a 1L bolus of normal saline this morning We will continue gentle IV hydration with normal saline at 125 mL/h. We will continue to expect further improvement. (5) Right lower quadrant abdominal pain Assessment/Plan: Secondary to C. difficile colitis as demonstrated on the CT of the abdomen/pelvis. Improving/Resolved. On full liquid diet. (6) Elevated troponin Assessment/Plan: Suspect this is secondary to demand ischemia. EKG showed normal sinus rhythm. Troponin trend was 109.6 > 123.3 > 103.5 > 94.3. 2D echocardiogram showed left ventricular size is normal. Mild concentric left ventricular hypertrophy noted. Overall left ventricular systolic function is normal with an ejection fraction of 60 to 65%. Normal diastology. No regional wall motion abnormality. The right ventricle is normal in size and function. The right atrial size is normal. The aorta is trileaflet. There is no evidence of aortic stenosis or aortic regurgitation. RVSP could not be determined. There is no pericardial effusion. There is an adipose layer noted in the pericardium. There was no mass or thrombus. There is no pleural effusion. 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 This is currently likely precipitated by the stressor of an illness. Valacyclovir 500 mg p.o. twice daily ordered. We will also give lidocaine viscous as needed for pain - Current Meds Current Meds: Current Medications Generic Name Dose Route Start Last Admin Trade Name Freq PRN Reason Stop Dose Admin Acetaminophen 650 mg 05/18/21 16:52 05/18/21 20:08 Acetaminophen 325 Mg Tablet PO 650 mg Q4HR PRN Administration Pain 1 to 4 Atorvastatin Calcium 10 mg 05/19/21 21:00 05/21/21 20:17 Atorvastatin 10 Mg Tablet PO 10 mg QPM IRENA Administration Heparin Sodium (Porcine) 5,000 unit 05/18/21 21:00 05/21/21 20:27 Heparin 5,000 Unit/Ml Vial SUBQ 5,000 unit BID IRENA Administration Sodium Chloride 1,000 mls @ 125 mls/hr 05/21/21 08:26 05/22/21 07:00 Normal Saline 0.9% IV 125 mls/hr .Q8H IRENA Infusion Lamotrigine 100 mg 05/19/21 09:00 05/21/21 08:28 Lamotrigine 100 Mg Tablet PO 100 mg DAILY IRENA Administration Lidocaine HCl 5 ml 05/20/21 11:03 05/21/21 06:33 Lidocaine Viscous 2% 15 Ml Udc MM 5 ml Q4H PRN Administration Mouth Sore Pain Mineral Oil 1 applic 05/18/21 19:36 05/19/21 18:45 Min Oil/Dimethicon/Coconut Oil 92 Gm Tube TOP 1 applic PRN PRN Administration Skin Care Pantoprazole Sodium 40 mg 05/19/21 07:00 05/22/21 05:53 Pantoprazole 40 Mg Tablet PO 40 mg QDAC IRENA Administration Pregabalin 200 mg 05/19/21 09:00 05/21/21 08:28 Pregabalin 100 Mg Capsule PO 200 mg DAILY IRENA Administration Saccharomyces Boulardii 250 mg 05/19/21 08:00 05/21/21 16:19 Saccharomyces Boulardii 250 Mg Capsule PO 250 mg BIDWM IRENA Administration Sodium Chloride 10 ml 05/19/21 09:00 05/21/21 23:08 Sodium Chloride Flush 0.9% 10 Ml Syringe IVP 10 ml 0100,0900,1700 IRENA Administration Sodium Chloride 10 ml 05/19/21 08:25 05/22/21 04:56 Sodium Chloride Flush 0.9% 10 Ml Syringe IVP 10 ml PRN PRN Administration NEEDED PER PROVIDER ORDERS Sodium Chloride 20 ml 05/21/21 05:34 05/22/21 04:56 Sodium Chloride Flush 0.9% 10 Ml Syringe IVP 20 ml PRN PRN Administration After Blood Draw Valacyclovir HCl 500 mg 05/20/21 12:00 05/21/21 20:17 Valacyclovir 500 Mg Tablet PO 500 mg BID IRENA Administration Vancomycin HCl 125 mg 05/19/21 09:00 05/21/21 20:18 Vancomycin 125 Mg Capsule PO 125 mg QID IRENA Administration - Lab Result Fish Bone Diagrams: 05/22/21 04:57 05/22/21 04:57 - Additional Planning My Orders: My Active Orders 05/21/21 08:26 Sodium Chloride 0.9% [Normal Saline 0.9%] 1,000 ml IV 125 mls/hr 05/22/21 07:29 Sodium Chloride 0.9% [Normal Saline 0.9%] 1,000 ml IV ONCE 05/22/21 08:00 Neutra-Phos [K-Phos Neutral] 250 mg PO Q2H Subjective - Subjective Patient Reports: Other (Patient was more alert and oriented today. She was seated in the bedside chair at time of exam. She denied chest pain but reported mild dyspnea. She denied abdominal pain. Frequency of her diarrhea decreased today) Objective Vital Signs: Vital Signs - 24 hr 05/21/21 05/21/21 05/21/21 08:00 09:00 10:00 Temperature 36.8 C Heart Rate [ 102 H 105 H 97 Monitoring electrodes] Respiratory 21 20 26 H Rate Blood Pressure 107/89 H 89/67 L 86/55 L [Left Brachial artery] Blood Pressure [Right Radial artery] O2 Saturation 93 92 92 05/21/21 05/21/21 05/21/21 11:00 11:52 12:58 Temperature 36.9 C Heart Rate [ 93 96 104 H Monitoring electrodes] Respiratory 20 18 17 Rate Blood Pressure 88/57 L 99/67 110/90 H [Left Brachial artery] Blood Pressure [Right Radial artery] O2 Saturation 95 96 94 05/21/21 05/21/21 05/21/21 13:30 13:40 13:50 Temperature Heart Rate [ 92 90 91 Monitoring electrodes] Respiratory Rate Blood Pressure 84/44 L 71/40 L [Left Brachial artery] Blood Pressure 91/54 L [Right Radial artery] O2 Saturation 05/21/21 05/21/21 05/21/21 14:00 15:00 16:00 Temperature Heart Rate [ 90 93 92 Monitoring electrodes] Respiratory 24 22 24 Rate Blood Pressure 88/55 L 91/47 L 95/56 L [Left Brachial artery] Blood Pressure [Right Radial artery] O2 Saturation 93 94 93 05/21/21 05/21/21 05/21/21 17:00 17:42 18:00 Temperature 36.5 C Heart Rate [ 99 97 Monitoring electrodes] Respiratory 20 22 Rate Blood Pressure 103/68 100/56 L [Left Brachial artery] Blood Pressure [Right Radial artery] O2 Saturation 97 97 05/21/21 05/21/21 05/21/21 19:00 20:00 21:00 Temperature 36.5 C Heart Rate [ 91 88 89 Monitoring electrodes] Respiratory 27 H 24 24 Rate Blood Pressure 98/87 H 93/52 L 97/44 L [Left Brachial artery] Blood Pressure [Right Radial artery] O2 Saturation 96 95 94 05/21/21 05/21/21 05/22/21 22:08 23:00 00:00 Temperature 36.5 C Heart Rate [ 92 93 92 Monitoring electrodes] Respiratory 24 24 23 Rate Blood Pressure 94/48 L 96/53 L 102/48 L [Left Brachial artery] Blood Pressure [Right Radial artery] O2 Saturation 92 94 94 05/22/21 05/22/21 05/22/21 01:02 02:02 03:00 Temperature Heart Rate [ 93 85 84 Monitoring electrodes] Respiratory 21 22 22 Rate Blood Pressure 106/48 L 81/44 L 74/43 L [Left Brachial artery] Blood Pressure [Right Radial artery] O2 Saturation 95 95 93 05/22/21 05/22/21 05/22/21 03:30 04:00 05:00 Temperature 36.9 C Heart Rate [ 87 87 78 Monitoring electrodes] Respiratory 22 20 18 Rate Blood Pressure 77/47 L 90/42 L 90/54 L [Left Brachial artery] Blood Pressure [Right Radial artery] O2 Saturation 93 94 96 05/22/21 05/22/21 06:00 07:00 Temperature Heart Rate [ 85 86 Monitoring electrodes] Respiratory 14 23 Rate Blood Pressure [Left Brachial artery] Blood Pressure 98/53 L 99/59 L [Right Radial artery] O2 Saturation 94 95 Oxygen O2 Source Nasal cannula I&O (Last 24 Hrs): Intake and Output Totals x24h 05/20/21 05/21/21 05/22/21 23:59 23:59 23:59 Intake Total 4120.583 5523.417 1783.334 Output Total 2110 300 Balance 2010.583 5223.417 1783.334 General: Alert, Oriented x3, No acute distress HEENT: PERRLA, EOMI Neck: Supple, No JVD Neuro: Alert, Non Focal, Oriented Times 3 Cardiovascular: Regular rate, Normal S1, Normal S2 Respiratory: Chest non-tender, No respiratory distress, Breath sounds nml Abdomen: Normal bowel sounds, Soft, No tenderness Extremities: No clubbing, No cyanosis, No edema - Results Results: Laboratory Results WBC 9.0 x10^3/uL (4.8-10.8) 05/22/21 04:57 RBC 3.12 10^6/uL (4.20-5.40) L 05/22/21 04:57 Hgb 9.4 g/dL (12.0-16.0) L 05/22/21 04:57 Hct 28.8 % (37.0-47.0) L 05/22/21 04:57 MCV 92.3 fL (81.0-99.0) 05/22/21 04:57 MCH 30.1 pg (27.0-31.0) 05/22/21 04:57 MCHC 32.6 g/dL (32.0-36.0) 05/22/21 04:57 RDW 15.1 % (12.0-15.0) H 05/22/21 04:57 Plt Count 157 10^3/uL (130-450) 05/22/21 04:57 MPV 11.1 fL (7.9-10.8) H 05/22/21 04:57 Neut # (Auto) Not Reportable 05/22/21 04:57 Lymph # (Auto) Not Reportable 05/22/21 04:57 [place] # (Auto) Not Reportable 05/22/21 04:57 Eos # (Auto) Not Reportable 05/22/21 04:57 Baso # (Auto) Not Reportable 05/22/21 04:57 Absolute Nucleated RBC Not Reportable 05/22/21 04:57 Total Counted 100 05/22/21 04:57 Band Neuts % (Manual) 1 % (0-10) 05/22/21 04:57 Abnorm Lymph % (Manual) 0 % 05/22/21 04:57 Metamyelocytes % 1 % (-0) H 05/21/21 04:20 Myelocytes % 1 % (-0) H 05/21/21 04:20 Nucleated RBC % Not Reportable 05/22/21 04:57 Neutrophils # (Manual) 8.0 10^3/uL (1.5-6.6) H 05/22/21 04:57 Lymphocytes # (Manual) 0.5 10^3/uL (1.5-3.5) L 05/22/21 04:57 Monocytes # (Manual) 0.3 10^3/uL (0.0-1.0) 05/22/21 04:57 Eosinophils # (Manual) 0.2 10^3/uL (0-0.7) 05/22/21 04:57 Basophils # (Manual) 0.0 10^3/uL (0-0.1) 05/22/21 04:57 Differential Comment MANUAL DIFFERENTIAL 05/22/21 04:57 Manual Slide Review Indicated 05/18/21 14:50 WBC Morphology NORMAL APPEARANCE (NORMAL) 05/22/21 04:57 Platelet Estimate NORMAL (130-450,000) (NORMAL) 05/22/21 04:57 Platelet Morphology NORMAL APPEARANCE (NORMAL) 05/22/21 04:57 RBC Morph Micro Appear NORMAL APPEARANCE (NORMAL) 05/22/21 04:57 VBG pH 7.362 (7.31-7.41) 05/21/21 09:00 Ionized Calcium 1.14 mmol/L (1.15-1.33) L 05/21/21 09:00 Sodium 137 mmol/L (135-145) 05/22/21 04:57 Potassium 3.8 mmol/L (3.5-5.0) 05/22/21 04:57 Chloride 111 mmol/L (101-111) 05/22/21 04:57 Carbon Dioxide 19 mmol/L (21-32) L 05/22/21 04:57 Anion Gap 7.0 (6-13) 05/22/21 04:57 BUN 30 mg/dL (6-20) H 05/22/21 04:57 Creatinine 2.9 mg/dL (0.4-1.0) H 05/22/21 04:57 Estimated GFR (MDRD) 16 (>89) L 05/22/21 04:57 Glucose 104 mg/dL (70-100) H 05/22/21 04:57 Lactic Acid 0.8 mmol/L (0.5-2.2) 05/19/21 12:03 Calcium 7.4 mg/dL (8.5-10.3) L 05/22/21 04:57 Phosphorus 2.2 mg/dL (2.5-4.6) L 05/22/21 04:57 Magnesium 2.6 mg/dL (1.7-2.8) 05/22/21 04:57 Total Bilirubin 1.4 mg/dL (0.2-1.0) H 05/18/21 14:50 AST 23 IU/L (10-42) 05/18/21 14:50 ALT 22 IU/L (10-60) 05/18/21 14:50 Alkaline Phosphatase 75 IU/L (42-121) 05/18/21 14:50 Total Creatine Kinase 178 IU/L (22-269) 05/19/21 08:10 Troponin I High Sens 94.3 ng/L (2.3-14.8) H* 05/20/21 04:30 Total Protein 6.1 g/dL (6.7-8.2) L 05/18/21 14:50 Albumin 2.1 g/dL (3.2-5.5) L 05/21/21 04:59 Globulin 2.8 g/dL (2.1-4.2) 05/18/21 14:50 Albumin/Globulin Ratio 1.2 (1.0-2.2) 05/18/21 14:50 Urine Color YELLOW 05/18/21 20:30 Urine Clarity HAZY (CLEAR) 05/18/21 20:30 Urine pH 5.0 PH (5.0-7.5) 05/18/21 20:30 Ur Specific [place] >=1.030 (1.002-1.030) H 05/18/21 20:30 Urine Protein 100 mg/dL (NEGATIVE) H 05/18/21 20:30 Urine Glucose (UA) NEGATIVE mg/dL (NEGATIVE) 05/18/21 20:30 Urine Ketones TRACE mg/dL (NEGATIVE) 05/18/21 20:30 Urine Occult Blood NEGATIVE (NEGATIVE) 05/18/21 20:30 Urine Nitrite POSITIVE (NEGATIVE) H 05/18/21 20:30 Urine Bilirubin NEGATIVE (NEGATIVE) 05/18/21 20:30 Urine Urobilinogen 1 (NORMAL) E.U./dL (NORMAL) 05/18/21 20:30 Ur Leukocyte Esterase TRACE (NEGATIVE) H 05/18/21 20:30 Urine RBC 0-5 /HPF (0-5) 05/18/21 20:30 Urine WBC 4-5 /HPF (0-5) 05/18/21 20:30 Ur Squamous Epith Cells MANY Squamous (<= Few) H 05/18/21 20:30 Urine Bacteria Few /HPF (None Seen) 05/18/21 20:30 Urine Casts 3-5 Course Granular /LPF 05/18/21 20:30 Ur Microscopic Review INDICATED 05/18/21 20:30 Urine Culture Comments NOT INDICATED 05/18/21 20:30 Nasal Adenovirus (PCR) NOT DETECTED 05/18/21 16:07 Nasal B. parapertussis DNA (PCR) NOT DETECTED 05/18/21 16:07 Nasal Coronavir 229E PCR NOT DETECTED 05/18/21 16:07 Nasal Coronavir HKU1 PCR NOT DETECTED 05/18/21 16:07 Nasal Coronavir NL63 PCR NOT DETECTED 05/18/21 16:07 Nasal Coronavir OC43 PCR NOT DETECTED 05/18/21 16:07 Nasal Enterovir/Rhinovir PCR NOT DETECTED 05/18/21 16:07 Nasal Influenza B PCR NOT DETECTED 05/18/21 16:07 Nasal Influenza A PCR NOT DETECTED 05/18/21 16:07 Nasal Parainfluen 1 PCR NOT DETECTED 05/18/21 16:07 Nasal Parainfluen 2 PCR NOT DETECTED 05/18/21 16:07 Nasal Parainfluen 3 PCR NOT DETECTED 05/18/21 16:07 Nasal Parainfluen 4 PCR NOT DETECTED 05/18/21 16:07 Nasal RSV (PCR) NOT DETECTED 05/18/21 16:07 Nasal Screen MRSA (PCR) NEGATIVE (NEGATIVE) 05/19/21 17:55 Nasal B.pertussis DNA PCR NOT DETECTED 05/18/21 16:07 Nasal C.pneumoniae (PCR) NOT DETECTED 05/18/21 16:07 Praneeth Human Metapneumo PCR NOT DETECTED 05/18/21 16:07 Nasal M.pneumoniae (PCR) NOT DETECTED 05/18/21 16:07 Nasal SARS-CoV-2 (PCR) NOT DETECTED 05/18/21 16:07 Stl C. diff Tox B Gene POSITIVE (NEGATIVE) A* 05/19/21 05:05 Urine Opiates Screen NEGATIVE (NEGATIVE) 05/18/21 20:30 Ur Oxycodone Screen NEGATIVE (NEGATIVE) 05/18/21 20:30 Urine Methadone Screen NEGATIVE (NEGATIVE) 05/18/21 20:30 Ur Propoxyphene Screen NEGATIVE (NEGATIVE) 05/18/21 20:30 Ur Barbiturates Screen NEGATIVE (NEGATIVE) 05/18/21 20:30 Ur Tricyclics Screen NEGATIVE (NEGATIVE) 05/18/21 20:30 Ur Phencyclidine Scrn NEGATIVE (NEGATIVE) 05/18/21 20:30 Ur Amphetamine Screen NEGATIVE (NEGATIVE) 05/18/21 20:30 U Methamphetamines Scrn NEGATIVE (NEGATIVE) 05/18/21 20:30 U Benzodiazepines Scrn NEGATIVE (NEGATIVE) 05/18/21 20:30 Urine Cocaine Screen NEGATIVE (NEGATIVE) 05/18/21 20:30 U Cannabinoids Screen NEGATIVE (NEGATIVE) 05/18/21 20:30 Ova & Parasites SEE NOTE 05/18/21 23:18 ABX Reporting Has patient been on IV antibiotics over the past 48 hours?: No
[2021-05-22] MEDS: SACCHAROMYCES BOULARDII 250 MG CAPSULE PO SCH ×2 (07:55→17:15)
[2021-05-22] MEDS: NEUTRA-PHOS 250 MG TABLET PO SCH ×2 (07:56→09:56)
[2021-05-22] MEDS: PREGABALIN 100 MG CAPSULE PO SCH (07:57)
[2021-05-22] MEDS: valACYclovir 500 MG TABLET PO SCH ×2 (07:57→20:25)
[2021-05-22] MEDS: VANCOMYCIN 125 MG CAPSULE PO SCH ×4 (07:57→20:25)
[2021-05-22] MEDS: SODIUM CHLORIDE FLUSH 0.9% 10 ML SYRINGE IVP SCH ×2 (07:58→17:15)
[2021-05-22] MEDS: lamoTRIgine 100 MG TABLET PO SCH (07:58)
[2021-05-22] MEDS: HEPARIN 5,000 UNIT/ML VIAL SUBQ SCH ×2 (08:00→20:26)
[2021-05-22 09:28] LABS: CALCIUM, IONIZED 1.13 mmol/L (1.15-1.33); VBG PH 7.317 (7.31-7.41)
[2021-05-22] MEDS: ATORVASTATIN 10 MG TABLET PO SCH (20:25)
[2021-05-23] MEDS: SODIUM CHLORIDE 0.9% 1,000 ML IV SCH ×3 (00:50→16:15)
[2021-05-23] MEDS: SODIUM CHLORIDE FLUSH 0.9% 10 ML SYRINGE IVP SCH ×3 (00:51→17:05)
[2021-05-23 06:15] LABS: BASOPHILS % (AUTO) 0.7 %; EOSINOPHILS % (AUTO) 5.5 %; HCT - HEMATOCRIT 29.1 % (37.0-47.0); HGB - HEMOGLOBIN 9.5 g/dL (12.0-16.0); LYMPHOCYTES % (AUTO) 4.1 %; MEAN CORPUSCULAR HEMOGLOBIN 30.1 pg (27.0-31.0); MEAN CORPUSCULAR HGB CONC 32.6 g/dL (32.0-36.0); MEAN CORPUSCULAR VOLUME 92.1 fL (81.0-99.0); MEAN PLATELET VOLUME 12.1 fL (7.9-10.8); MONOCYTES % (AUTO) 4.9 %; NEUTROPHILS % (AUTO) 82.7 %; PLT - PLATELET COUNT 196 10^3/uL (130-450); RED BLOOD COUNT 3.16 10^6/uL (4.20-5.40); RED CELL DISTRIBUTION WIDTH 15.5 % (12.0-15.0); WHITE BLOOD COUNT 8.2 x10^3/uL (4.8-10.8)
[2021-05-23 06:19] LABS: ABNORMAL LYMPHS % (MANUAL) 0 %
[2021-05-23 06:29] LABS: CALCIUM 7.7 mg/dL (8.5-10.3); CREATININE 3.4 mg/dL (0.4-1.0); MAGNESIUM 2.1 mg/dL (1.7-2.8); POTASSIUM 3.6 mmol/L (3.5-5.0)
[2021-05-23 06:33] LABS: BAND NEUTROPHILS % (MANUAL) 6 %; BASOPHILS # (MANUAL) 0.1 10^3/uL (0-0.1); BASOPHILS % (MANUAL) 1 %; DIFFERENTIAL COMMENT MANUAL DIFFERENTIAL; EOSINOPHILS # (MANUAL) 0.6 10^3/uL (0-0.7); LYMPHOCYTES # (MANUAL) 0.4 10^3/uL (1.5-3.5); LYMPHOCYTES % (MANUAL) 5 %; MONOCYTES # (MANUAL) 0.2 10^3/uL (0.0-1.0); PLATELET ESTIMATE, MANUAL NORMAL (130-450,000) (NORMAL); PLATELET MORPHOLOGY NORMAL APPEARANCE (NORMAL); RBC MORPHOLOGY (MULTIPLE) NORMAL APPEARANCE (NORMAL); WBC MORPHOLOGY (MULTIPLE) NORMAL APPEARANCE (NORMAL)
[2021-05-23] MEDS: PANTOPRAZOLE 40 MG TABLET PO SCH (06:54)
[2021-05-23] MEDS ORDERED: SODIUM CHLORIDE 0.9% 1,000 ML IV ONE ×2 (07:14→16:16)
--- NOTE | 2021-05-23 07:23 | PROVIDER PROGRESS NOTE ---
Assessment/Plan - Problem List (1) Sepsis Assessment/Plan: Patient appeared more alert, awake and oriented this morning. The frequency of diarrhea decreased today. However her systolic blood pressure was 89 this. Consequently she was administered 1 L bolus of normal saline over 2 hours. SBP improved late morning and has been greater than 100 since 10 am She remains afebrile and her white blood cell count was 8 We will continue IV hydration with normal saline at 125 mL/h. Continue vancomycin 125 mg p.o. 4 times daily day #4. Anticipated discharge 05/24/21 or 05/25/21. (2) C. difficile colitis Assessment/Plan: On vancomycin p.o. 125 mg 4 times daily. Decreased frequency of stools today On gentle IV hydration with normal saline at 125 mL/h. Patient is on a probiotic with Florastor (3) Bacteremia Assessment/Plan: Blood cultures eventually grew staph epidermidis. This is suspected to be a contaminant. IV vancomycin discontinued at the end of yesterday 05/20/21. (4) CARLOS (acute kidney injury) Assessment/Plan: Likely prerenal. Related to sepsis and hypovolemia from diarrhea Creatinine today is 3.4 with and estimated GFR of 14. Worse than patient's creatinine yesterday of 2.9 with an estimated GFR 16. Ultrasound was negative for hydronephrosis, renal calculi or infection She was given a 1L bolus of normal saline this morning We will continue gentle IV hydration with normal saline at 125 mL/h. We will continue to expect further improvement. (5) Right lower quadrant abdominal pain Assessment/Plan: Secondary to C. difficile colitis as demonstrated on the CT of the abdomen/pelvis. Improving/Resolved. On full liquid diet. Will advance diet to soft mechanical for breakfast 05/24 (6) Elevated troponin Assessment/Plan: Suspect this is secondary to demand ischemia. EKG showed normal sinus rhythm. Troponin trend was 109.6 > 123.3 > 103.5 > 94.3. 2D echocardiogram showed left ventricular size is normal. Mild concentric left ventricular hypertrophy noted. Overall left ventricular systolic function is normal with an ejection fraction of 60 to 65%. Normal diastology. No regional wall motion abnormality. The right ventricle is normal in size and function. The right atrial size is normal. The aorta is trileaflet. There is no evidence of aortic stenosis or aortic regurgitation. RVSP could not be determined. There is no pericardial effusion. There is an adipose layer noted in the pericardium. There was no mass or thrombus. There is no pleural effusion. 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 This is currently likely precipitated by the stressor of an illness. Valacyclovir 500 mg p.o. twice daily ordered. We will also give lidocaine viscous as needed for pain - Current Meds Current Meds: Current Medications Generic Name Dose Route Start Last Admin Trade Name Freq PRN Reason Stop Dose Admin Acetaminophen 650 mg 05/18/21 16:52 05/18/21 20:08 Acetaminophen 325 Mg Tablet PO 650 mg Q4HR PRN Administration Pain 1 to 4 Atorvastatin Calcium 10 mg 05/19/21 21:00 05/22/21 20:25 Atorvastatin 10 Mg Tablet PO 10 mg QPM IRENA Administration Heparin Sodium (Porcine) 5,000 unit 05/18/21 21:00 05/22/21 20:26 Heparin 5,000 Unit/Ml Vial SUBQ 5,000 unit BID IRENA Administration Sodium Chloride 1,000 mls @ 125 mls/hr 05/21/21 08:26 05/23/21 00:50 Normal Saline 0.9% IV 125 mls/hr .Q8H IRENA Administration Lamotrigine 100 mg 05/19/21 09:00 05/22/21 07:58 Lamotrigine 100 Mg Tablet PO 100 mg DAILY IRENA Administration Lidocaine HCl 5 ml 05/20/21 11:03 05/21/21 06:33 Lidocaine Viscous 2% 15 Ml Udc MM 5 ml Q4H PRN Administration Mouth Sore Pain Mineral Oil 1 applic 05/18/21 19:36 05/19/21 18:45 Min Oil/Dimethicon/Coconut Oil 92 Gm Tube TOP 1 applic PRN PRN Administration Skin Care Pantoprazole Sodium 40 mg 05/19/21 07:00 05/23/21 06:54 Pantoprazole 40 Mg Tablet PO 40 mg QDAC IRENA Administration Pregabalin 200 mg 05/19/21 09:00 05/22/21 07:57 Pregabalin 100 Mg Capsule PO 200 mg DAILY IRENA Administration Saccharomyces Boulardii 250 mg 05/19/21 08:00 05/22/21 17:15 Saccharomyces Boulardii 250 Mg Capsule PO 250 mg BIDWM IRENA Administration Sodium Chloride 10 ml 05/19/21 09:00 05/23/21 00:51 Sodium Chloride Flush 0.9% 10 Ml Syringe IVP 10 ml 0100,0900,1700 IRENA Administration Sodium Chloride 10 ml 05/19/21 08:25 05/22/21 04:56 Sodium Chloride Flush 0.9% 10 Ml Syringe IVP 10 ml PRN PRN Administration NEEDED PER PROVIDER ORDERS Sodium Chloride 20 ml 05/21/21 05:34 05/22/21 04:56 Sodium Chloride Flush 0.9% 10 Ml Syringe IVP 20 ml PRN PRN Administration After Blood Draw Valacyclovir HCl 500 mg 05/20/21 12:00 05/22/21 20:25 Valacyclovir 500 Mg Tablet PO 500 mg BID IRENA Administration Vancomycin HCl 125 mg 05/19/21 09:00 05/22/21 20:25 Vancomycin 125 Mg Capsule PO 125 mg QID IRENA Administration - Lab Result Fish Bone Diagrams: 05/23/21 04:20 05/23/21 04:20 - Additional Planning My Orders: My Active Orders 05/23/21 07:14 0.9% NS 1000ML BOLUS X Sodium Chloride 0.9% [Normal Saline 0.9%] 1,000 ml IV ONCE 05/23/21 07:16 Retroperitoneal Limited [US] Routine Subjective - Subjective Patient Reports: Other (Patient appears clinically improved. She is more alert and oriented today. She spent most of the day in the bedside chair and work with physical therapy more today. She appears mildly edematous.) Objective Vital Signs: Vital Signs - 24 hr 05/22/21 05/22/21 05/22/21 07:44 09:00 10:00 Temperature 36.6 C Heart Rate [ 82 90 87 Monitoring electrodes] Heart Rate [ Sitting] Respiratory 17 19 19 Rate Blood Pressure [Left Brachial artery] Blood Pressure 89/60 L 107/62 87/46 L [Right Radial artery] Blood Pressure [Sitting] O2 Saturation 93 93 94 O2 Saturation [ Without Activity] 05/22/21 05/22/21 05/22/21 11:00 11:40 11:47 Temperature 36.4 C L Heart Rate [ 75 87 Monitoring electrodes] Heart Rate [ 88 Sitting] Respiratory 18 20 Rate Blood Pressure [Left Brachial artery] Blood Pressure 88/55 L 111/69 [Right Radial artery] Blood Pressure 111/69 [Sitting] O2 Saturation 92 94 O2 Saturation [ 94 Without Activity] 05/22/21 05/22/21 05/22/21 13:00 14:00 15:00 Temperature Heart Rate [ 92 90 85 Monitoring electrodes] Heart Rate [ Sitting] Respiratory 21 15 19 Rate Blood Pressure [Left Brachial artery] Blood Pressure 104/69 90/55 L 126/47 L [Right Radial artery] Blood Pressure [Sitting] O2 Saturation 96 97 96 O2 Saturation [ Without Activity] 05/22/21 05/22/21 05/22/21 15:51 17:00 18:00 Temperature 36.6 C Heart Rate [ 83 87 91 Monitoring electrodes] Heart Rate [ Sitting] Respiratory 22 25 H 20 Rate Blood Pressure 130/82 H [Left Brachial artery] Blood Pressure 97/51 L 112/78 [Right Radial artery] Blood Pressure [Sitting] O2 Saturation 96 100 98 O2 Saturation [ Without Activity] 05/22/21 05/22/21 05/22/21 19:00 20:00 20:14 Temperature 36.9 C Heart Rate [ 91 92 94 Monitoring electrodes] Heart Rate [ Sitting] Respiratory 20 23 22 Rate Blood Pressure 117/81 H [Left Brachial artery] Blood Pressure 124/61 124/61 [Right Radial artery] Blood Pressure [Sitting] O2 Saturation 96 98 96 O2 Saturation [ Without Activity] 05/22/21 05/22/21 05/22/21 21:00 22:00 23:00 Temperature Heart Rate [ 89 88 91 Monitoring electrodes] Heart Rate [ Sitting] Respiratory 20 19 22 Rate Blood Pressure [Left Brachial artery] Blood Pressure 95/55 L 104/56 L 94/51 L [Right Radial artery] Blood Pressure [Sitting] O2 Saturation 96 96 95 O2 Saturation [ Without Activity] 05/23/21 05/23/21 05/23/21 00:03 01:11 02:00 Temperature 36.9 C Heart Rate [ 86 95 85 Monitoring electrodes] Heart Rate [ Sitting] Respiratory 21 24 20 Rate Blood Pressure [Left Brachial artery] Blood Pressure 96/53 L 91/54 L 89/42 L [Right Radial artery] Blood Pressure [Sitting] O2 Saturation 91 L 92 92 O2 Saturation [ Without Activity] 05/23/21 05/23/21 05/23/21 03:00 04:00 05:00 Temperature 36.9 C Heart Rate [ 88 92 93 Monitoring electrodes] Heart Rate [ Sitting] Respiratory 24 22 24 Rate Blood Pressure [Left Brachial artery] Blood Pressure 80/43 L 79/43 L 103/64 [Right Radial artery] Blood Pressure [Sitting] O2 Saturation 92 91 L 94 O2 Saturation [ Without Activity] 05/23/21 05/23/21 05/23/21 06:00 06:57 07:00 Temperature 36.6 C Heart Rate [ 90 87 84 Monitoring electrodes] Heart Rate [ Sitting] Respiratory 20 24 18 Rate Blood Pressure [Left Brachial artery] Blood Pressure 83/44 L 97/49 L 91/55 L [Right Radial artery] Blood Pressure [Sitting] O2 Saturation 93 93 92 O2 Saturation [ Without Activity] Oxygen O2 Source [Without Activity] Room air O2 Source Room air I&O (Last 24 Hrs): Intake and Output Totals x24h 05/21/21 05/22/21 05/23/21 23:59 23:59 23:59 Intake Total 5523.417 5154.584 1497.917 Output Total 300 151 500 Balance 5223.417 5003.584 997.917 General: Alert, Oriented x3, Cooperative, No acute distress HEENT: PERRLA, EOMI Neck: Supple, No JVD Neuro: Alert, Non Focal, Oriented Times 3 Cardiovascular: Regular rate, Normal S1, Normal S2 Respiratory: Chest non-tender, No respiratory distress, Breath sounds nml Abdomen: Normal bowel sounds, Soft, No tenderness, No masses Extremities: No clubbing, No cyanosis, Other (trace edema) Skin: No rashes, No breakdown, No significant lesion - Results Results: Laboratory Results WBC 8.2 x10^3/uL (4.8-10.8) 05/23/21 04:20 RBC 3.16 10^6/uL (4.20-5.40) L 05/23/21 04:20 Hgb 9.5 g/dL (12.0-16.0) L 05/23/21 04:20 Hct 29.1 % (37.0-47.0) L 05/23/21 04:20 MCV 92.1 fL (81.0-99.0) 05/23/21 04:20 MCH 30.1 pg (27.0-31.0) 05/23/21 04:20 MCHC 32.6 g/dL (32.0-36.0) 05/23/21 04:20 RDW 15.5 % (12.0-15.0) H 05/23/21 04:20 Plt Count 196 10^3/uL (130-450) 05/23/21 04:20 MPV 12.1 fL (7.9-10.8) H 05/23/21 04:20 Neut # (Auto) Not Reportable 05/23/21 04:20 Lymph # (Auto) Not Reportable 05/23/21 04:20 [place] # (Auto) Not Reportable 05/23/21 04:20 Eos # (Auto) Not Reportable 05/23/21 04:20 Baso # (Auto) Not Reportable 05/23/21 04:20 Absolute Nucleated RBC Not Reportable 05/23/21 04:20 Total Counted 100 05/23/21 04:20 Band Neuts % (Manual) 6 % (0-10) 05/23/21 04:20 Abnorm Lymph % (Manual) 0 % 05/23/21 04:20 Metamyelocytes % 1 % (-0) H 05/21/21 04:20 Myelocytes % 1 % (-0) H 05/21/21 04:20 Nucleated RBC % Not Reportable 05/23/21 04:20 Neutrophils # (Manual) 7.0 10^3/uL (1.5-6.6) H 05/23/21 04:20 Lymphocytes # (Manual) 0.4 10^3/uL (1.5-3.5) L 05/23/21 04:20 Monocytes # (Manual) 0.2 10^3/uL (0.0-1.0) 05/23/21 04:20 Eosinophils # (Manual) 0.6 10^3/uL (0-0.7) 05/23/21 04:20 Basophils # (Manual) 0.1 10^3/uL (0-0.1) 05/23/21 04:20 Differential Comment MANUAL DIFFERENTIAL 05/23/21 04:20 Manual Slide Review Indicated 05/18/21 14:50 WBC Morphology NORMAL APPEARANCE (NORMAL) 05/23/21 04:20 Platelet Estimate NORMAL (130-450,000) (NORMAL) 05/23/21 04:20 Platelet Morphology NORMAL APPEARANCE (NORMAL) 05/23/21 04:20 RBC Morph Micro Appear NORMAL APPEARANCE (NORMAL) 05/23/21 04:20 VBG pH 7.317 (7.31-7.41) 05/22/21 08:20 Ionized Calcium 1.13 mmol/L (1.15-1.33) L 05/22/21 08:20 Sodium 139 mmol/L (135-145) 05/23/21 04:20 Potassium 3.6 mmol/L (3.5-5.0) 05/23/21 04:20 Chloride 115 mmol/L (101-111) H 05/23/21 04:20 Carbon Dioxide 17 mmol/L (21-32) L 05/23/21 04:20 Anion Gap 7.0 (6-13) 05/23/21 04:20 BUN 32 mg/dL (6-20) H 05/23/21 04:20 Creatinine 3.4 mg/dL (0.4-1.0) H 05/23/21 04:20 Estimated GFR (MDRD) 14 (>89) L 05/23/21 04:20 Glucose 89 mg/dL (70-100) 05/23/21 04:20 Lactic Acid 0.8 mmol/L (0.5-2.2) 05/19/21 12:03 Calcium 7.7 mg/dL (8.5-10.3) L 05/23/21 04:20 Phosphorus 3.0 mg/dL (2.5-4.6) 05/23/21 04:20 Magnesium 2.1 mg/dL (1.7-2.8) 05/23/21 04:20 Total Bilirubin 1.4 mg/dL (0.2-1.0) H 05/18/21 14:50 AST 23 IU/L (10-42) 05/18/21 14:50 ALT 22 IU/L (10-60) 05/18/21 14:50 Alkaline Phosphatase 75 IU/L (42-121) 05/18/21 14:50 Total Creatine Kinase 178 IU/L (22-269) 05/19/21 08:10 Troponin I High Sens 94.3 ng/L (2.3-14.8) H* 05/20/21 04:30 Total Protein 6.1 g/dL (6.7-8.2) L 05/18/21 14:50 Albumin 2.1 g/dL (3.2-5.5) L 05/21/21 04:59 Globulin 2.8 g/dL (2.1-4.2) 05/18/21 14:50 Albumin/Globulin Ratio 1.2 (1.0-2.2) 05/18/21 14:50 Urine Color YELLOW 05/18/21 20:30 Urine Clarity HAZY (CLEAR) 05/18/21 20:30 Urine pH 5.0 PH (5.0-7.5) 05/18/21 20:30 Ur Specific [place] >=1.030 (1.002-1.030) H 05/18/21 20:30 Urine Protein 100 mg/dL (NEGATIVE) H 05/18/21 20:30 Urine Glucose (UA) NEGATIVE mg/dL (NEGATIVE) 05/18/21 20: Urine Ketones TRACE mg/dL (NEGATIVE) 05/18/21 20:30 Urine Occult Blood NEGATIVE (NEGATIVE) 05/18/21 20:30 Urine Nitrite POSITIVE (NEGATIVE) H 05/18/21 20:30 Urine Bilirubin NEGATIVE (NEGATIVE) 05/18/21 20:30 Urine Urobilinogen 1 (NORMAL) E.U./dL (NORMAL) 05/18/21 20:30 Ur Leukocyte Esterase TRACE (NEGATIVE) H 05/18/21 20:30 Urine RBC 0-5 /HPF (0-5) 05/18/21 20:30 Urine WBC 4-5 /HPF (0-5) 05/18/21 20:30 Ur Squamous Epith Cells MANY Squamous (<= Few) H 05/18/21 20:30 Urine Bacteria Few /HPF (None Seen) 05/18/21 20:30 Urine Casts 3-5 Course Granular /LPF 05/18/21 20:30 Ur Microscopic Review INDICATED 05/18/21 20:30 Urine Culture Comments NOT INDICATED 05/18/21 20:30 Nasal Adenovirus (PCR) NOT DETECTED 05/18/21 16:07 Nasal B. parapertussis DNA (PCR) NOT DETECTED 05/18/21 16:07 Nasal Coronavir 229E PCR NOT DETECTED 05/18/21 16:07 Nasal Coronavir HKU1 PCR NOT DETECTED 05/18/21 16:07 Nasal Coronavir NL63 PCR NOT DETECTED 05/18/21 16:07 Nasal Coronavir OC43 PCR NOT DETECTED 05/18/21 16:07 Nasal Enterovir/Rhinovir PCR NOT DETECTED 05/18/21 16:07 Nasal Influenza B PCR NOT DETECTED 05/18/21 16:07 Nasal Influenza A PCR NOT DETECTED 05/18/21 16:07 Nasal Parainfluen 1 PCR NOT DETECTED 05/18/21 16:07 Nasal Parainfluen 2 PCR NOT DETECTED 05/18/21 16:07 Nasal Parainfluen 3 PCR NOT DETECTED 05/18/21 16:07 Nasal Parainfluen 4 PCR NOT DETECTED 05/18/21 16:07 Nasal RSV (PCR) NOT DETECTED 05/18/21 16:07 Nasal Screen MRSA (PCR) NEGATIVE (NEGATIVE) 05/19/21 17:55 Nasal B.pertussis DNA PCR NOT DETECTED 05/18/21 16:07 Nasal C.pneumoniae (PCR) NOT DETECTED 05/18/21 16:07 Praneeth Human Metapneumo PCR NOT DETECTED 05/18/21 16:07 Nasal M.pneumoniae (PCR) NOT DETECTED 05/18/21 16:07 Nasal SARS-CoV-2 (PCR) NOT DETECTED 05/18/21 16:07 Stl C. diff Tox B Gene POSITIVE (NEGATIVE) A* 05/19/21 05:05 Urine Opiates Screen NEGATIVE (NEGATIVE) 05/18/21 20:30 Ur Oxycodone Screen NEGATIVE (NEGATIVE) 05/18/21 20:30 Urine Methadone Screen NEGATIVE (NEGATIVE) 05/18/21 20:30 Ur Propoxyphene Screen NEGATIVE (NEGATIVE) 05/18/21 20:30 Ur Barbiturates Screen NEGATIVE (NEGATIVE) 05/18/21 20:30 Ur Tricyclics Screen NEGATIVE (NEGATIVE) 05/18/21 20:30 Ur Phencyclidine Scrn NEGATIVE (NEGATIVE) 05/18/21 20:30 Ur Amphetamine Screen NEGATIVE (NEGATIVE) 05/18/21 20:30 U Methamphetamines Scrn NEGATIVE (NEGATIVE) 05/18/21 20:30 U Benzodiazepines Scrn NEGATIVE (NEGATIVE) 05/18/21 20:30 Urine Cocaine Screen NEGATIVE (NEGATIVE) 05/18/21 20:30 U Cannabinoids Screen NEGATIVE (NEGATIVE) 05/18/21 20:30 Ova & Parasites SEE NOTE 05/18/21 23:18 ABX Reporting Has patient been on IV antibiotics over the past 48 hours?: No
[2021-05-23] MEDS: SACCHAROMYCES BOULARDII 250 MG CAPSULE PO SCH ×2 (08:01→17:05)
[2021-05-23] MEDS: lamoTRIgine 100 MG TABLET PO SCH (09:45)
[2021-05-23] MEDS: HEPARIN 5,000 UNIT/ML VIAL SUBQ SCH ×2 (09:45→20:30)
[2021-05-23] MEDS: PREGABALIN 100 MG CAPSULE PO SCH (09:45)
[2021-05-23] MEDS: VANCOMYCIN 125 MG CAPSULE PO SCH ×4 (09:46→20:30)
[2021-05-23] MEDS: valACYclovir 500 MG TABLET PO SCH ×2 (09:46→20:30)
--- NOTE | 2021-05-23 10:59 | Ultrasound Report ---
PROCEDURE: Retroperitoneal INDICATIONS: worsening renal function TECHNIQUE: Real-time scanning was performed of the retroperitoneal organs, with image documentation. COMPARISON: None. FINDINGS: Kidneys: Kidneys are normal in size. Right kidney measures 12.30 cm long; left kidney measures 9.9 cm long. Right renal cortical thickness is 1. cm; left renal cortical thickness is 0.8 cm. No solid masses, hydronephrosis, or nephrolithiasis. Mild splenomegaly. Prevoid urinary bladder volume is 377 cc. Postvoid residual is 132 cc. Bilateral ureteral jets are se en. IMPRESSION: 1. No hydronephrosis. 2. Moderate postvoid residual in the urinary bladder. 3. Left renal atrophy. 4. Splenomegaly. Reviewed by: Addie Glass MD on 05/23/2021 9:58 AM IMM[facility] Approved by: Addie Glass MD on 05/23/2021 9:58 AM IMMANU[facility] Station ID: [id number]
[2021-05-23] MEDS ORDERED: VANCOMYCIN 125 MG CAPSULE PO ONE ×3 (14:54→20:30)
[2021-05-23] MEDS ORDERED: HEPARIN 5,000 UNIT/ML VIAL ONE (20:28)
[2021-05-23] MEDS ORDERED: ATORVASTATIN 10 MG TABLET PO ONE (20:28)
[2021-05-23] MEDS ORDERED: valACYclovir 500 MG TABLET ONE (20:29)
[2021-05-23] MEDS: ATORVASTATIN 10 MG TABLET PO SCH (20:30)
[2021-05-24] MEDS: SODIUM CHLORIDE 0.9% 1,000 ML IV SCH (01:07)
[2021-05-24] MEDS ORDERED: SODIUM CHLORIDE 0.9% 1,000 ML IV ONE (01:09)
[2021-05-24] MEDS: SODIUM CHLORIDE FLUSH 0.9% 10 ML SYRINGE IVP SCH ×3 (02:45→17:18)
[2021-05-24] MEDS: PANTOPRAZOLE 40 MG TABLET PO SCH (06:25)
[2021-05-24] MEDS ORDERED: PANTOPRAZOLE 40 MG TABLET ONE (06:25)
[2021-05-24] MEDS: SODIUM CHLORIDE FLUSH 0.9% 10 ML SYRINGE IVP PRN ×2 (06:31)
[2021-05-24] MEDS: HEPARIN 5,000 UNIT/ML VIAL SUBQ SCH ×2 (08:56→20:25)
[2021-05-24] MEDS: PREGABALIN 100 MG CAPSULE PO SCH (08:59)
[2021-05-24] MEDS: SACCHAROMYCES BOULARDII 250 MG CAPSULE PO SCH ×2 (09:00→17:18)
[2021-05-24] MEDS: lamoTRIgine 100 MG TABLET PO SCH (09:00)
[2021-05-24] MEDS: VANCOMYCIN 125 MG CAPSULE PO SCH ×4 (09:00→20:25)
[2021-05-24] MEDS: valACYclovir 500 MG TABLET PO SCH ×2 (09:00→20:25)
[2021-05-24 09:28] LABS: BASOPHILS % (AUTO) 0.5 %; EOSINOPHILS # (AUTO) 0.5 10^3/uL (0.0-0.7); EOSINOPHILS % (AUTO) 7.1 %; HCT - HEMATOCRIT 33.5 % (37.0-47.0); LYMPHOCYTES # (AUTO) 0.4 10^3/uL (1.5-3.5); LYMPHOCYTES % (AUTO) 5.5 %; MEAN CORPUSCULAR HEMOGLOBIN 29.7 pg (27.0-31.0); MEAN CORPUSCULAR HGB CONC 32.8 g/dL (32.0-36.0); MEAN CORPUSCULAR VOLUME 90.5 fL (81.0-99.0); MEAN PLATELET VOLUME 10.7 fL (7.9-10.8); MONOCYTES # (AUTO) 0.4 10^3/uL (0.0-1.0); MONOCYTES % (AUTO) 5.8 %; NEUTROPHILS # (AUTO) 5.9 10^3/uL (1.5-6.6); NEUTROPHILS % (AUTO) 76.9 %; PLT - PLATELET COUNT 271 10^3/uL (130-450); RED CELL DISTRIBUTION WIDTH 15.9 % (12.0-15.0); WHITE BLOOD COUNT 7.6 x10^3/uL (4.8-10.8)
[2021-05-24 09:38] LABS: CALCIUM 7.9 mg/dL (8.5-10.3); CREATININE 3.9 mg/dL (0.4-1.0); POTASSIUM 3.4 mmol/L (3.5-5.0)
[2021-05-24] MEDS ORDERED: POTASSIUM CHLORIDE 20 MEQ TABLET PO ONE (10:14)
[2021-05-24] MEDS ORDERED: FUROSEMIDE 20 MG TABLET PO STA (10:44)
[2021-05-24] MEDS ORDERED: FUROSEMIDE 40 MG TABLET PO ONE (16:00)
--- NOTE | 2021-05-24 17:06 | PROVIDER PROGRESS NOTE ---
Assessment/Plan - Problem List (1) ATN (acute tubular necrosis) Assessment/Plan: Patient's creatinine worsened from 3.4 yesterday to 3.9 with corresponding GFR of 12 This is likely caused by sepsis and hypovolemia from diarrhea Her SBP at one point had been as low as 70 before levophed was started and rangel ntained for about 36 hours I did a curbside consult with Dr Esteves (Nephrology at [facility]) at [phone] He agreed with the diagnoses of ATN but had no further recommendation He said the patient will either get better over time of worsen and require dialysis She had mild crackles on auscultation of her lungs and 1+ to 2+ lower extremity edema but maintaining her O2Sat in the high 90% on room air Consequently, IV fluids were discontinued. She was given Lasix 60mg po X1 In 12 hours she had about 500-600ml of urine output (Oliguric) I spoke to her PCP: Dr Venecia Holcomb at [phone] in [place], [place]. Who in turn gave me the contact for a nephrology clinic in [facility]. . They requested her record faxed. These have been done. They requested I send another fax stating it was for the purpose of an Urgent referral. This has been done as well. However they stated that appointments are currently 1 month out. The patient and her were scheduled to fly back home on 05/26/21 However for lack of a good plan of care and follow up upon discharge and considering the worsening renal function, I thought it prudent to continue monitoring her renal function in [facility]. Please consider talking to nephrology again for any further recommendations if renal function worsens further. (2) CARLOS (acute kidney injury) Assessment/Plan: Due to hypovolemia from sepsis and diarrhea. Treatment plan under ATN diagnosis (3) Sepsis Assessment/Plan: Frequency of bowel movements continue to decrease. Tolerated soft diet. Will advance to regular diet Blood pressure continues to be stable She remains afebrile and her white blood cell count was 7.6 IV hydration discontinued Continue vancomycin 125mg po qid. Day #5 Patient made Med/Surg Status today. (4) C. difficile colitis Assessment/Plan: On vancomycin p.o. 125 mg 4 times daily. Decreased frequency of stools today Patient is on a probiotic with Florastor (5) Bacteremia Assessment/Plan: Blood cultures eventually grew staph epidermidis. This is suspected to be a contaminant. IV vancomycin discontinued at the end of yesterday 05/20/21. (6) Right lower quadrant abdominal pain Assessment/Plan: Resolved. Will advance diet to regular for breakfast on 05/25 (7) Elevated troponin Assessment/Plan: Suspect this is secondary to demand ischemia. EKG showed normal sinus rhythm. Troponin trend was 109.6 > 123.3 > 103.5 > 94.3. 2D echocardiogram showed left ventricular size is normal. Mild concentric left ventricular hypertrophy noted. Overall left ventricular systolic function is normal with an ejection fraction of 60 to 65%. Normal diastology. No regional wall motion abnormality. The right ventricle is normal in size and function. The right atrial size is normal. The aorta is trileaflet. There is no evidence of aortic stenosis or aortic regurgitation. RVSP could not be determined. There is no pericardial effusion. There is an adipose layer noted in the pericardium. There was no mass or thrombus. There is no pleural effusion. 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 This is currently likely precipitated by the stressor of an illness. Valacyclovir 500 mg p.o. twice daily ordered. We will also give lidocaine viscous as needed for pain - Current Meds Current Meds: Current Medications Generic Name Dose Route Start Last Admin Trade Name Freq PRN Reason Stop Dose Admin Acetaminophen 650 mg 05/18/21 16:52 05/18/21 20:08 Acetaminophen 325 Mg Tablet PO 650 mg Q4HR PRN Administration Pain 1 to 4 Atorvastatin Calcium 10 mg 05/19/21 21:00 05/23/21 20:30 Atorvastatin 10 Mg Tablet PO 10 mg QPM IRENA Administration Heparin Sodium (Porcine) 5,000 unit 05/18/21 21:00 05/24/21 08:56 Heparin 5,000 Unit/Ml Vial SUBQ 5,000 unit BID IRENA Administration Lamotrigine 100 mg 05/19/21 09:00 05/24/21 09:00 Lamotrigine 100 Mg Tablet PO 100 mg DAILY IRENA Administration Lidocaine HCl 5 ml 05/20/21 11:03 05/21/21 06:33 Lidocaine Viscous 2% 15 Ml Udc MM 5 ml Q4H PRN Administration Mouth Sore Pain Mineral Oil 1 applic 05/18/21 19:36 05/19/21 18:45 Min Oil/Dimethicon/Coconut Oil 92 Gm Tube TOP 1 applic PRN PRN Administration Skin Care Pantoprazole Sodium 40 mg 05/19/21 07:00 05/24/21 06:25 Pantoprazole 40 Mg Tablet PO 40 mg QDAC IRENA Administration Pregabalin 200 mg 05/19/21 09:00 05/24/21 08:59 Pregabalin 100 Mg Capsule PO 200 mg DAILY IRENA Administration Saccharomyces Boulardii 250 mg 05/19/21 08:00 05/24/21 09:00 Saccharomyces Boulardii 250 Mg Capsule PO 250 mg BIDWM IRENA Administration Sodium Chloride 10 ml 05/19/21 09:00 05/24/21 14:48 Sodium Chloride Flush 0.9% 10 Ml Syringe IVP Not Given 0100,0900,1700 IRENA Sodium Chloride 10 ml 05/19/21 08:25 05/24/21 06:31 Sodium Chloride Flush 0.9% 10 Ml Syringe IVP 10 ml PRN PRN Administration NEEDED PER PROVIDER ORDERS Sodium Chloride 20 ml 05/21/21 05:34 05/24/21 06:31 Sodium Chloride Flush 0.9% 10 Ml Syringe IVP 20 ml PRN PRN Administration After Blood Draw Valacyclovir HCl 500 mg 05/20/21 12:00 05/24/21 09:00 Valacyclovir 500 Mg Tablet PO 500 mg BID IRENA Administration Vancomycin HCl 125 mg 05/19/21 09:00 05/24/21 13:04 Vancomycin 125 Mg Capsule PO 125 mg QID IRENA Administration - Lab Result Fish Bone Diagrams: 05/24/21 08:58 05/24/21 08:58 - Additional Planning My Orders: My Active Orders 05/24/21 Breakfast Soft Mechanical Diet [DIET] 05/25/21 05:00 BMP - BASIC METABOLIC PANEL [CHEM] DAILYLAB CBC - COMP BLD CT W/AUTO DIFF [HEME] DAILYLAB 05/26/21 05:00 BMP - BASIC METABOLIC PANEL [CHEM] DAILYLAB CBC - COMP BLD CT W/AUTO DIFF [HEME] DAILYLAB Subjective - Subjective Patient Reports: Other (Patient continues to improve clinically daily. She again spent most of the day in the bedside chair and work with physical therapy more today. She appears mildly edematous.) Objective Vital Signs: Vital Signs - 24 hr 05/23/21 05/23/21 05/23/21 18:00 19:00 20:30 Temperature 36.7 C Heart Rate [ 90 85 92 Monitoring electrodes] Respiratory 18 21 24 Rate Blood Pressure 135/71 H 114/60 123/79 [Right Radial artery] O2 Saturation 98 96 95 05/23/21 05/23/21 05/23/21 21:10 22:15 23:00 Temperature Heart Rate [ 89 98 84 Monitoring electrodes] Respiratory 19 17 18 Rate Blood Pressure 118/58 L 128/62 86/54 L [Right Radial artery] O2 Saturation 96 96 92 05/24/21 05/24/21 05/24/21 00:00 01:00 02:00 Temperature Heart Rate [ 92 94 88 Monitoring electrodes] Respiratory 20 24 20 Rate Blood Pressure 123/55 L 127/59 L 97/56 L [Right Radial artery] O2 Saturation 95 95 93 05/24/21 05/24/21 05/24/21 03:00 04:00 05:00 Temperature Heart Rate [ 92 87 92 Monitoring electrodes] Respiratory 19 20 22 Rate Blood Pressure 112/57 L 116/56 L 115/60 [Right Radial artery] O2 Saturation 94 93 94 05/24/21 05/24/21 05/24/21 06:25 07:00 08:00 Temperature 36.5 C Heart Rate [ 91 87 93 Monitoring electrodes] Respiratory 23 17 Rate Blood Pressure 137/81 H 126/64 150/118 H [Right Radial artery] O2 Saturation 95 18 L 96 05/24/21 05/24/21 05/24/21 09:00 10:00 11:00 Temperature Heart Rate [ 94 90 94 Monitoring electrodes] Respiratory 24 20 22 Rate Blood Pressure 129/83 H [Right Radial artery] O2 Saturation 97 05/24/21 05/24/21 05/24/21 12:00 13:00 14:00 Temperature Heart Rate [ 90 92 89 Monitoring electrodes] Respiratory 22 17 18 Rate Blood Pressure 149/91 H 121/84 H [Right Radial artery] O2 Saturation 97 99 96 05/24/21 05/24/21 15:00 15:59 Temperature Heart Rate [ 83 89 Monitoring electrodes] Respiratory 19 15 Rate Blood Pressure 131/73 H 147/81 H [Right Radial artery] O2 Saturation 94 98 Oxygen O2 Source [Without Activity] Room air O2 Source Room air I&O (Last 24 Hrs): Intake and Output Totals x24h 05/22/21 05/23/21 05/24/21 23:59 23:59 23:59 Intake Total 5154.584 6279.167 2866.667 Output Total 151 554 300 Balance 5003.584 5725.167 2566.667 General: Alert, Oriented x3, Mild distress (mild dyspnea) HEENT: PERRLA, EOMI Neck: Supple, No JVD Neuro: Alert, Non Focal, Oriented Times 3 Cardiovascular: Regular rate, Normal S1, Normal S2 Respiratory: Chest non-tender, Other (mild crackles at lung bases) Abdomen: Normal bowel sounds, Soft, No tenderness Extremities: No clubbing, No cyanosis, Other (+1 to +2 lower extremity edema bilaterally) Comments/Notes: Mild redness on right side of neck (site of central line) - Results Results: Laboratory Results WBC 7.6 x10^3/uL (4.8-10.8) 05/24/21 08:58 RBC 3.70 10^6/uL (4.20-5.40) L 05/24/21 08:58 Hgb 11.0 g/dL (12.0-16.0) L 05/24/21 08:58 Hct 33.5 % (37.0-47.0) L 05/24/21 08:58 MCV 90.5 fL (81.0-99.0) 05/24/21 08:58 MCH 29.7 pg (27.0-31.0) 05/24/21 08:58 MCHC 32.8 g/dL (32.0-36.0) 05/24/21 08:58 RDW 15.9 % (12.0-15.0) H 05/24/21 08:58 Plt Count 271 10^3/uL (130-450) 05/24/21 08:58 MPV 10.7 fL (7.9-10.8) 05/24/21 08:58 Neut # (Auto) 5.9 10^3/uL (1.5-6.6) 05/24/21 08:58 Lymph # (Auto) 0.4 10^3/uL (1.5-3.5) L 05/24/21 08:58 [place] # (Auto) 0.4 10^3/uL (0.0-1.0) 05/24/21 08:58 Eos # (Auto) 0.5 10^3/uL (0.0-0.7) 05/24/21 08:58 Baso # (Auto) 0.0 10^3/uL (0.0-0.1) 05/24/21 08:58 Absolute Nucleated RBC 0.00 x10^3/uL 05/24/21 08:58 Total Counted 100 05/23/21 04:20 Band Neuts % (Manual) 6 % (0-10) 05/23/21 04:20 Abnorm Lymph % (Manual) 0 % 05/23/21 04:20 Metamyelocytes % 1 % (-0) H 05/21/21 04:20 Myelocytes % 1 % (-0) H 05/21/21 04:20 Nucleated RBC % 0.0 /100WBC 05/24/21 08:58 Neutrophils # (Manual) 7.0 10^3/uL (1.5-6.6) H 05/23/21 04:20 Lymphocytes # (Manual) 0.4 10^3/uL (1.5-3.5) L 05/23/21 04:20 Monocytes # (Manual) 0.2 10^3/uL (0.0-1.0) 05/23/21 04:20 Eosinophils # (Manual) 0.6 10^3/uL (0-0.7) 05/23/21 04:20 Basophils # (Manual) 0.1 10^3/uL (0-0.1) 05/23/21 04:20 Differential Comment MANUAL DIFFERENTIAL 05/23/21 04:20 Manual Slide Review Indicated 05/18/21 14:50 WBC Morphology NORMAL APPEARANCE (NORMAL) 05/23/21 04:20 Platelet Estimate NORMAL (130-450,000) (NORMAL) 05/23/21 04:20 Platelet Morphology NORMAL APPEARANCE (NORMAL) 05/23/21 04:20 RBC Morph Micro Appear NORMAL APPEARANCE (NORMAL) 05/23/21 04:20 VBG pH 7.317 (7.31-7.41) 05/22/21 08:20 Ionized Calcium 1.13 mmol/L (1.15-1.33) L 05/22/21 08:20 Sodium 140 mmol/L (135-145) 05/24/21 08:58 Potassium 3.4 mmol/L (3.5-5.0) L 05/24/21 08:58 Chloride 115 mmol/L (101-111) H 05/24/21 08:58 Carbon Dioxide 16 mmol/L (21-32) L 05/24/21 08:58 Anion Gap 9.0 (6-13) 05/24/21 08:58 BUN 30 mg/dL (6-20) H 05/24/21 08:58 Creatinine 3.9 mg/dL (0.4-1.0) H 05/24/21 08:58 Estimated GFR (MDRD) 12 (>89) L 05/24/21 08:58 Glucose 119 mg/dL (70-100) H 05/24/21 08:58 Lactic Acid 0.8 mmol/L (0.5-2.2) 05/19/21 12:03 Calcium 7.9 mg/dL (8.5-10.3) L 05/24/21 08:58 Phosphorus 3.0 mg/dL (2.5-4.6) 05/23/21 04:20 Magnesium 2.1 mg/dL (1.7-2.8) 05/23/21 04:20 Total Bilirubin 1.4 mg/dL (0.2-1.0) H 05/18/21 14:50 AST 23 IU/L (10-42) 05/18/21 14:50 ALT 22 IU/L (10-60) 05/18/21 14:50 Alkaline Phosphatase 75 IU/L (42-121) 05/18/21 14:50 Total Creatine Kinase 178 IU/L (22-269) 05/19/21 08:10 Troponin I High Sens 94.3 ng/L (2.3-14.8) H* 05/20/21 04:30 B-Natriuretic Peptide 293 pg/mL (5-100) H 05/24/21 08:58 Total Protein 6.1 g/dL (6.7-8.2) L 05/18/21 14:50 Albumin 2.1 g/dL (3.2-5.5) L 05/21/21 04:59 Globulin 2.8 g/dL (2.1-4.2) 05/18/21 14:50 Albumin/Globulin Ratio 1.2 (1.0-2.2) 05/18/21 14:50 Urine Color YELLOW 05/18/21 20:30 Urine Clarity HAZY (CLEAR) 05/18/21 20:30 Urine pH 5.0 PH (5.0-7.5) 05/18/21 20:30 Ur Specific [place] >=1.030 (1.002-1.030) H 05/18/21 20:30 Urine Protein 100 mg/dL (NEGATIVE) H 05/18/21 20:30 Urine Glucose (UA) NEGATIVE mg/dL (NEGATIVE) 05/18/21 20: Urine Ketones TRACE mg/dL (NEGATIVE) 05/18/21 20:30 Urine Occult Blood NEGATIVE (NEGATIVE) 05/18/21 20:30 Urine Nitrite POSITIVE (NEGATIVE) H 05/18/21 20:30 Urine Bilirubin NEGATIVE (NEGATIVE) 05/18/21 20:30 Urine Urobilinogen 1 (NORMAL) E.U./dL (NORMAL) 05/18/21 20:30 Ur Leukocyte Esterase TRACE (NEGATIVE) H 05/18/21 20:30 Urine RBC 0-5 /HPF (0-5) 05/18/21 20:30 Urine WBC 4-5 /HPF (0-5) 05/18/21 20:30 Ur Squamous Epith Cells MANY Squamous (<= Few) H 05/18/21 20:30 Urine Bacteria Few /HPF (None Seen) 05/18/21 20:30 Urine Casts 3-5 Course Granular /LPF 05/18/21 20:30 Ur Microscopic Review INDICATED 05/18/21 20:30 Urine Culture Comments NOT INDICATED 05/18/21 20:30 Nasal Adenovirus (PCR) NOT DETECTED 05/18/21 16:07 Nasal B. parapertussis DNA (PCR) NOT DETECTED 05/18/21 16:07 Nasal Coronavir 229E PCR NOT DETECTED 05/18/21 16:07 Nasal Coronavir HKU1 PCR NOT DETECTED 05/18/21 16:07 Nasal Coronavir NL63 PCR NOT DETECTED 05/18/21 16:07 Nasal Coronavir OC43 PCR NOT DETECTED 05/18/21 16:07 Nasal Enterovir/Rhinovir PCR NOT DETECTED 05/18/21 16:07 Nasal Influenza B PCR NOT DETECTED 05/18/21 16:07 Nasal Influenza A PCR NOT DETECTED 05/18/21 16:07 Nasal Parainfluen 1 PCR NOT DETECTED 05/18/21 16:07 Nasal Parainfluen 2 PCR NOT DETECTED 05/18/21 16:07 Nasal Parainfluen 3 PCR NOT DETECTED 05/18/21 16:07 Nasal Parainfluen 4 PCR NOT DETECTED 05/18/21 16:07 Nasal RSV (PCR) NOT DETECTED 05/18/21 16:07 Nasal Screen MRSA (PCR) NEGATIVE (NEGATIVE) 05/19/21 17:55 Nasal B.pertussis DNA PCR NOT DETECTED 05/18/21 16:07 Nasal C.pneumoniae (PCR) NOT DETECTED 05/18/21 16:07 Praneeth Human Metapneumo PCR NOT DETECTED 05/18/21 16:07 Nasal M.pneumoniae (PCR) NOT DETECTED 05/18/21 16:07 Nasal SARS-CoV-2 (PCR) NOT DETECTED 05/18/21 16:07 Stl C. diff Tox B Gene POSITIVE (NEGATIVE) A* 05/19/21 05:05 Urine Opiates Screen NEGATIVE (NEGATIVE) 05/18/21 20:30 Ur Oxycodone Screen NEGATIVE (NEGATIVE) 05/18/21 20:30 Urine Methadone Screen NEGATIVE (NEGATIVE) 05/18/21 20:30 Ur Propoxyphene Screen NEGATIVE (NEGATIVE) 05/18/21 20:30 Ur Barbiturates Screen NEGATIVE (NEGATIVE) 05/18/21 20:30 Lamotrigine 3.3 mcg/mL (4.0-18.0) L 05/19/21 12:03 Ur Tricyclics Screen NEGATIVE (NEGATIVE) 05/18/21 20:30 Ur Phencyclidine Scrn NEGATIVE (NEGATIVE) 05/18/21 20:30 Ur Amphetamine Screen NEGATIVE (NEGATIVE) 05/18/21 20:30 U Methamphetamines Scrn NEGATIVE (NEGATIVE) 05/18/21 20:30 U Benzodiazepines Scrn NEGATIVE (NEGATIVE) 05/18/21 20:30 Urine Cocaine Screen NEGATIVE (NEGATIVE) 05/18/21 20:30 U Cannabinoids Screen NEGATIVE (NEGATIVE) 05/18/21 20:30 Ova & Parasites SEE NOTE 05/18/21 23:18 Ref Lab Test Result REPORT 05/18/21 23:18 ABX Reporting Has patient been on IV antibiotics over the past 48 hours?: No
[2021-05-24] MEDS: ATORVASTATIN 10 MG TABLET PO SCH (20:25)
[2021-05-25 05:01] LABS: BASOPHILS % (AUTO) 0.7 %; EOSINOPHILS % (AUTO) 7.9 %; LYMPHOCYTES % (AUTO) 7.7 %; MEAN CORPUSCULAR HEMOGLOBIN 29.6 pg (27.0-31.0); MEAN CORPUSCULAR HGB CONC 32.3 g/dL (32.0-36.0); MEAN CORPUSCULAR VOLUME 91.7 fL (81.0-99.0); MEAN PLATELET VOLUME 10.4 fL (7.9-10.8); MONOCYTES % (AUTO) 6.1 %; PLT - PLATELET COUNT 259 10^3/uL (130-450); RED BLOOD COUNT 3.38 10^6/uL (4.20-5.40); RED CELL DISTRIBUTION WIDTH 15.9 % (12.0-15.0); WHITE BLOOD COUNT 5.7 x10^3/uL (4.8-10.8)
[2021-05-25 05:04] LABS: CALCIUM 8.3 mg/dL (8.5-10.3); CREATININE 4.4 mg/dL (0.4-1.0); POTASSIUM 3.8 mmol/L (3.5-5.0)
[2021-05-25 05:05] LABS: ABNORMAL LYMPHS % (MANUAL) 0 %
[2021-05-25 05:40] LABS: BAND NEUTROPHILS % (MANUAL) 5 %; DIFFERENTIAL COMMENT MANUAL DIFFERENTIAL; EOSINOPHILS # (MANUAL) 0.4 10^3/uL (0-0.7); LYMPHOCYTES # (MANUAL) 0.7 10^3/uL (1.5-3.5); LYMPHOCYTES % (MANUAL) 12 %; METAMYELOCYTES % (MANUAL) 1 %; MONOCYTES # (MANUAL) 0.5 10^3/uL (0.0-1.0); MYELOCYTES % (MANUAL) 1 %; PLATELET ESTIMATE, MANUAL NORMAL (130-450,000) (NORMAL); RBC MORPHOLOGY (MULTIPLE) NORMAL APPEARANCE (NORMAL)
[2021-05-25] MEDS: SODIUM CHLORIDE FLUSH 0.9% 10 ML SYRINGE IVP SCH ×4 (06:09→17:17)
[2021-05-25] MEDS: PANTOPRAZOLE 40 MG TABLET PO SCH (06:23)
[2021-05-25 08:28] LABS: MAGNESIUM 2.2 mg/dL (1.7-2.8); PHOSPHORUS 4.8 mg/dL (2.5-4.6)
[2021-05-25] MEDS ORDERED: DESVENLAFAXINE SUCCINATE 50 MG PO SCH (09:00)
[2021-05-25] MEDS: SACCHAROMYCES BOULARDII 250 MG CAPSULE PO SCH ×2 (09:49→17:17)
[2021-05-25] MEDS: ARIPiprazole 5 MG TABLET PO SCH (09:49)
[2021-05-25] MEDS: valACYclovir 500 MG TABLET PO SCH ×2 (09:50→20:46)
[2021-05-25] MEDS: VANCOMYCIN 125 MG CAPSULE PO SCH ×4 (09:51→20:46)
[2021-05-25] MEDS: PREGABALIN 100 MG CAPSULE PO SCH (09:51)
[2021-05-25] MEDS: lamoTRIgine 100 MG TABLET PO SCH (09:52)
[2021-05-25] MEDS: HEPARIN 5,000 UNIT/ML VIAL SUBQ SCH ×2 (09:52→20:45)
--- NOTE | 2021-05-25 10:56 | PROVIDER PROGRESS NOTE ---
Subjective - Prog Note Date Prog Note Date: 05/25/21 - Subjective Subjective: She reports feeling better each day. Her diarrhea has pretty much resolved. She is having around 1-2 bowel movements a day. Denies any abdominal pain. Has been tolerating a diet. She feels like she is urinating adequately. She is wondering when she can go home. Her is present at bedside. Current Medications - Current Medications Current Medications: Active Medications Acetaminophen (Acetaminophen 325 Mg Tablet) 650 mg PO Q4HR PRN PRN Reason: Pain 1 to 4 Last Admin: 05/18/21 20:08 Dose: 650 mg Documented by: Aripiprazole (Aripiprazole 5 Mg Tablet) 10 mg PO DAILY [facility] Last Admin: 05/25/21 09:49 Dose: 10 mg Documented by: Atorvastatin Calcium (Atorvastatin 10 Mg Tablet) 10 mg PO QPM [facility] Last Admin: 05/24/21 20:25 Dose: 10 mg Documented by: Heparin Sodium (Porcine) (Heparin 5,000 Unit/Ml Vial) 5,000 unit SUBQ BID [facility] Last Admin: 05/25/21 09:52 Dose: 5,000 unit Documented by: Sodium Chloride (Normal Saline 0.9%) 500 mls @ 20 mls/hr IV Q24H PRN PRN Reason: TKO RATE Lamotrigine (Lamotrigine 100 Mg Tablet) 100 mg PO DAILY [facility] Last Admin: 05/25/21 09:52 Dose: 100 mg Documented by: Lidocaine HCl (Lidocaine Viscous 2% 15 Ml Udc) 5 ml MM Q4H PRN PRN Reason: Mouth Sore Pain Last Admin: 05/21/21 06:33 Dose: 5 ml Documented by: Mineral Oil (Min Oil/Dimethicon/Coconut Oil 92 Gm Tube) 1 applic TOP PRN PRN PRN Reason: Skin Care Last Admin: 05/19/21 18:45 Dose: 1 applic Documented by: Non-Formulary Medication (Desvenlafaxine Succinate [Pristiq]) 50 mg PO DAILY [facility] Ondansetron HCl (Ondansetron 4 Mg/2 Ml Vial) 4 mg IVP Q6HR PRN PRN Reason: Nausea / Vomiting Oxycodone HCl (Oxycodone 5 Mg Tablet) 5 mg PO Q4HR PRN PRN Reason: PAIN Pantoprazole Sodium (Pantoprazole 40 Mg Tablet) 40 mg PO QDAC [facility] Last Admin: 05/25/21 06:23 Dose: 40 mg Documented by: Pregabalin (Pregabalin 100 Mg Capsule) 100 mg PO DAILY [facility] Last Admin: 05/25/21 09:51 Dose: 100 mg Documented by: Prochlorperazine Edisylate (Prochlorperazine 10 Mg/2 Ml Vial) 10 mg IVP Q6HR PRN PRN Reason: Nausea / Vomiting Saccharomyces Boulardii (Saccharomyces Boulardii 250 Mg Capsule) 250 mg PO BIDWM [facility] Last Admin: 05/25/21 09:49 Dose: 250 mg Documented by: Sodium Chloride (Sodium Chloride Flush 0.9% 10 Ml Syringe) 10 ml IVP 0100,0900,1700 [facility] Last Admin: 05/25/21 06:09 Dose: Not Given Documented by: Sodium Chloride (Sodium Chloride Flush 0.9% 10 Ml Syringe) 10 ml IVP PRN PRN PRN Reason: NEEDED PER PROVIDER ORDERS Last Admin: 05/24/21 06:31 Dose: 10 ml Documented by: Sodium Chloride (Sodium Chloride Flush 0.9% 10 Ml Syringe) 20 ml IVP PRN PRN PRN Reason: After Blood Draw Last Admin: 05/24/21 06:31 Dose: 20 ml Documented by: Valacyclovir HCl (Valacyclovir 500 Mg Tablet) 500 mg PO BID [facility] Last Admin: 05/25/21 09:50 Dose: 500 mg Documented by: Vancomycin HCl (Vancomycin 125 Mg Capsule) 125 mg PO QID [facility] Last Admin: 05/25/21 09:51 Dose: 125 mg Documented by: ARIPiprazole [Aripiprazole] 10 mg PO DAILY 05/18/21 Acyclovir [Zovirax] 1 applic TOP 5XD PRN 05/18/21 Amoxicillin 2,000 mg PO ONCE PRN 05/18/21 Cholecalciferol [Vitamin D3] 50 mcg PO DAILY 05/18/21 Clobetasol Propionate [Temovate] 1 applic TP BID PRN 05/18/21 Desvenlafaxine Succinate [Pristiq ER] 50 mg PO DAILY 05/18/21 Diclofenac Sodium [Voltaren Arthritis Pain] 2 gm TP QID PRN 05/18/21 Docosanol [Abreva] 1 applic TP ONCE PRN 05/18/21 Esomeprazole Magnesium [Nexium] 40 mg PO DAILY 05/18/21 Eszopiclone [Lunesta] 3 mg PO QPM 05/18/21 Hydroxychloroquine [Plaquenil] 200 mg PO BIDWM 05/18/21 Loratadine [Claritin] 10 mg PO DAILY 05/18/21 Losartan [Cozaar] 50 mg PO DAILY 05/18/21 Loteprednol Etabonate 1 drops EACHEYE BID PRN 05/18/21 Loteprednol Etabonate [Lotemax] 1 applic EACHEYE DAILY PRN 05/18/21 Multivitamin/Iron/Folic Acid [Centrum Women Tablet] 1 each PO DAILY 05/18/21 Oxybutynin [Ditropan] 5 mg PO DAILY 05/18/21 Pilocarpine HCl [Salagen] 5 mg PO QID 05/18/21 Pregabalin [Lyrica] 200 mg PO DAILY 05/18/21 Simvastatin [Zocor] 10 mg PO QPM 05/18/21 Triamcinolone 0.5% Cream [Kenalog 0.5% Cream] 1 applic TOP TID PRN 05/18/21 Valacyclovir HCl [Valtrex] 500 mg PO DAILY PRN 05/18/21 lamoTRIgine [LaMICtal] 100 mg PO DAILY 05/18/21 traMADol [Ultram] 50 mg PO Q4-6H PRN 05/18/21 Objective - Vital Signs/Intake & Output Reviewed Vital Signs: Yes Vital Signs: Vital Signs x48h Temp Pulse Resp BP BP Pulse Ox 05/25/21 08:10 36.6 C 92 20 143/92 H 96 05/25/21 06:26 87 18 125/65 97 Intake & Output: Intake & Output 05/22/21 05/23/21 05/24/21 05/25/21 23:59 23:59 23:59 23:59 Intake Total 5154.584 6279.167 3186.667 200 Output Total 903 105 9191 1025 Balance 5003.584 5725.167 1911.667 -825 - Objective General Appearance: positive: No acute distress, Alert Eyes Bilateral: positive: Normal inspection, Conjunctivae nml ENT: positive: ENT inspection nml Neck: positive: Nml inspection Respiratory: positive: No respiratory distress. negative: Wheezes, Rales Cardiovascular: positive: Regular rate & rhythm, No murmur. negative: Tachycardia Abdomen: positive: Non-tender, No distention. negative: Tenderness, Guarding, Rebound Skin: positive: Warm, Dry Extremities: positive: Pedal edema (+2 pitting edema in bilateral lowere extremities.) Neurologic/Psychiatric: positive: Motor nml, Disoriented to time (Oriented to year but not month.), Other (She is forgetful at times and her answers are delayed on occasion.). negative: Disoriented to person, Disoriented to place, Facial droop, Slurred/abnml speech - Lab Results Fish Bones: 05/25/21 04:34 05/25/21 04:34 Other Labs: Lab Results x24hrs 05/25/21 05/25/21 05/25/21 Range/Units 04:34 04:34 04:34 WBC 5.7 (4.8-10.8) x10^3/uL RBC 3.38 L (4.20-5.40) 10^6/uL Hgb 10.0 L (12.0-16.0) g/dL Hct 31.0 L (37.0-47.0) % MCV 91.7 (81.0-99.0) fL MCH 29.6 (27.0-31.0) pg MCHC 32.3 (32.0-36.0) g/dL RDW 15.9 H (12.0-15.0) % Plt Count 259 (130-450) 10^3/uL MPV 10.4 (7.9-10.8) fL Neut # (Auto) Not Reportable Lymph # (Auto) Not Reportable [place] # (Auto) Not Reportable Eos # (Auto) Not Reportable Baso # (Auto) Not Reportable Absolute Nucleated RBC Not Reportable Total Counted 100 Band Neuts % (Manual) 5 (0 - 10) % Abnorm Lymph % (Manual) 0 % Metamyelocytes % 1 H ( - 0) % Myelocytes % 1 H ( - 0) % Nucleated RBC % Not Reportable Neutrophils # (Manual) 4.0 (1.5-6.6) 10^3/uL Lymphocytes # (Manual) 0.7 L (1.5-3.5) 10^3/uL Monocytes # (Manual) 0.5 (0.0-1.0) 10^3/uL Eosinophils # (Manual) 0.4 (0-0.7) 10^3/uL Basophils # (Manual) 0.0 (0-0.1) 10^3/uL Differential Comment MANUAL DIFFERENTIAL Platelet Estimate NORMAL (130-450,000) (NORMAL) RBC Morph Micro Appear NORMAL APPEARANCE (NORMAL) Sodium 145 (135-145) mmol/L Potassium 3.8 (3.5-5.0) mmol/L Chloride 119 H (101-111) mmol/L Carbon Dioxide 16 L (21-32) mmol/L Anion Gap 10.0 (6-13) BUN 29 H (6-20) mg/dL Creatinine 4.4 H (0.4-1.0) mg/dL Estimated GFR (MDRD) 10 L (>89) Glucose 85 (70-100) mg/dL Calcium 8.3 L (8.5-10.3) mg/dL Phosphorus 4.8 H (2.5-4.6) mg/dL Magnesium 2.2 (1.7-2.8) mg/dL ABX Reporting Has patient been on IV antibiotics over the past 48 hours?: No Sepsis Event Note (H) - Evaluation Current Stage of Sepsis: Resolved Possible source of Sepsis: positive: GI tract/intra-abdominal - Sepsis Criteria Sepsis Criteria: WBC count greater than 12,000 or less than 4000, PERIODONTAL ASSISTANT: altered consciousness (unrelated to primary neuro pathology), SBP drop more than 40mHg, SBP less than 90 mmHg, Renal: urine output less than 0.5ml/kg/hr for 2 hours or creatinine gr Assessment/Plan - Problem List (1) Acute renal failure Impression: She has acute renal failure secondary to ATN due to the hypotension from the sepsis. Her creatinine continues to climb and today it is 4.4. Fortunately, there are currently no indications for dialysis as her electrolytes are adequate and although she is edematous, she is not hypoxic or complaining of dyspnea. I did speak with Dr. Esteves of nephrology again who agreed with supportive measures for the time being and to contact him if there was an indication for dialysis. At this time, we will hold off on IV fluids given she is no longer hypovolemic. We will continue to avoid all nephrotoxins. We will continue to ensure her blood pressure is adequate and avoid further episodes of hypotension. I discussed with the patient and her today extensively regarding the diagnosis of ATN and that ideally we would see her creatinine plateau and then begin to decrease before we can consider discharging her home. We also discussed that if her renal function does not recover that she would need to be transferred for hemodialysis. Qualifiers: Acute renal failure type: with acute tubular necrosis Qualified Code(s): N17.0 - Acute kidney failure with tubular necrosis (2) C. difficile colitis Impression: This was the cause of her sepsis. Her diarrhea is significantly improved now. She remains hospitalized due to her acute renal failure. Today is day 7 of oral vancomycin and she will need a total of 10 days of therapy. Continue diet as tolerated. (3) Altered mental status Impression: She does appear to be somewhat altered with the late speech. She is oriented to self, and location but forgot what month it is. She not have any focal deficits on exam to suggest a stroke. I suspect this is likely related to the Lyrica she has been receiving which is her usual home dose but given her renal failure, I suspect this is contributing to her disorientation and confusion at times. We will decrease the dose of the Lyrica but not discontinue it completely. I have also resumed her usual Abilify and Pristiq. We will continue to monitor her neuro status. Qualifiers: Altered mental status type: disorientation Qualified Code(s): R41.0 - Disorientation, unspecified (4) Bacteremia Impression: Initial blood cultures from May 18 grew Staph epidermidis in the anaerobic and aerobic bottle from the same set. The other blood culture has been negative to date. We suspect this is likely contaminant and the IV vancomycin was discontinued a few days ago. (5) Lower extremity edema Impression: This is secondary to the IV fluid resuscitation she received in a patient who has acute renal failure and was oliguric. Her echocardiogram revealed a preserved ejection fraction and her BNP was only mildly elevated. We will hold off on further diuresis given the lack of dyspnea and hypoxia. Will encourage her to keep her legs elevated and we discussed that her edema will improve over the next few weeks as we are hopeful that her renal function recovers. (6) Depression Impression: We are continuing her home Abilify and Pristiq. (7) Neuropathy Impression: I have decreased the dose of her home Lyrica given the renal failure and her confusion. (8) Septic shock Impression: This was secondary to the C. difficile colitis. This is now resolved. She is normotensive and are no longer requiring ICU care.
[2021-05-25] MEDS: ATORVASTATIN 10 MG TABLET PO SCH (20:46)
[2021-05-26 02:28] LABS: BILIRUBIN,URINE NEGATIVE (NEGATIVE); GLUCOSE, URINE (UA) NEGATIVE (NEGATIVE); KETONES,URINE (UA) NEGATIVE (NEGATIVE); LEUKOCYTE ESTERASE, URINE TRACE (NEGATIVE); NITRITE,URINE NEGATIVE (NEGATIVE); OCCULT BLOOD,URINE TRACE-INTA (NEGATIVE); PH,URINE 5.5 PH (5.0-7.5); PROTEIN,URINE NEGATIVE (NEGATIVE); UROBILINOGEN,URINE 0.2 (NORMAL) E.U./dL (NORMAL)
[2021-05-26 02:35] LABS: BACTERIA,URINE Rare /HPF (None Seen); CLARITY,URINE CLEAR (CLEAR); RBC,URINE 0-5 /HPF (0-5); SQUAMOUS EPITHELIAL CELL,UR MOD Squamous (<= Few)
[2021-05-26] MEDS: SODIUM CHLORIDE FLUSH 0.9% 10 ML SYRINGE IVP SCH ×3 (02:47→11:58)
[2021-05-26] MEDS: PANTOPRAZOLE 40 MG TABLET PO SCH (05:15)
[2021-05-26 06:34] LABS: BASOPHILS % (AUTO) 0.7 %; EOSINOPHILS % (AUTO) 8.2 %; HCT - HEMATOCRIT 30.9 % (37.0-47.0); HGB - HEMOGLOBIN 10.3 g/dL (12.0-16.0); LYMPHOCYTES % (AUTO) 8.5 %; MEAN CORPUSCULAR HEMOGLOBIN 30.5 pg (27.0-31.0); MEAN CORPUSCULAR HGB CONC 33.3 g/dL (32.0-36.0); MEAN CORPUSCULAR VOLUME 91.4 fL (81.0-99.0); MEAN PLATELET VOLUME 10.4 fL (7.9-10.8); MONOCYTES % (AUTO) 5.4 %; NEUTROPHILS % (AUTO) 71.9 %; PLT - PLATELET COUNT 279 10^3/uL (130-450); RED BLOOD COUNT 3.38 10^6/uL (4.20-5.40); WHITE BLOOD COUNT 5.5 x10^3/uL (4.8-10.8)
[2021-05-26 06:49] LABS: CALCIUM 8.3 mg/dL (8.5-10.3); CREATININE 4.6 mg/dL (0.4-1.0); MAGNESIUM 2.2 mg/dL (1.7-2.8); PHOSPHORUS 5.1 mg/dL (2.5-4.6); POTASSIUM 3.7 mmol/L (3.5-5.0)
[2021-05-26 07:09] LABS: SLIDE REVIEW? Indicated
--- NOTE | 2021-05-26 07:16 | PROVIDER PROGRESS NOTE ---
Subjective - Prog Note Date Prog Note Date: 05/26/21 - Subjective Subjective: She reports feeling better each day. She has been urinating without difficulty. Her diarrhea has resolved. She has been eating without difficulty denies any abdominal pain. Current Medications - Current Medications Current Medications: Active Medications Acetaminophen (Acetaminophen 325 Mg Tablet) 650 mg PO Q4HR PRN PRN Reason: Pain 1 to 4 Last Admin: 05/18/21 20:08 Dose: 650 mg Documented by: Aripiprazole (Aripiprazole 5 Mg Tablet) 10 mg PO DAILY [facility] Last Admin: 05/26/21 10:20 Dose: 10 mg Documented by: Atorvastatin Calcium (Atorvastatin 10 Mg Tablet) 10 mg PO QPM [facility] Last Admin: 05/25/21 20:46 Dose: 10 mg Documented by: Heparin Sodium (Porcine) (Heparin 5,000 Unit/Ml Vial) 5,000 unit SUBQ BID [facility] Last Admin: 05/26/21 10:20 Dose: 5,000 unit Documented by: Sodium Chloride (Normal Saline 0.9%) 500 mls @ 20 mls/hr IV Q24H PRN PRN Reason: TKO RATE Lamotrigine (Lamotrigine 100 Mg Tablet) 100 mg PO DAILY [facility] Last Admin: 05/26/21 10:21 Dose: 100 mg Documented by: Lidocaine HCl (Lidocaine Viscous 2% 15 Ml Udc) 5 ml MM Q4H PRN PRN Reason: Mouth Sore Pain Last Admin: 05/21/21 06:33 Dose: 5 ml Documented by: Mineral Oil (Min Oil/Dimethicon/Coconut Oil 92 Gm Tube) 1 applic TOP PRN PRN PRN Reason: Skin Care Last Admin: 05/19/21 18:45 Dose: 1 applic Documented by: Ondansetron HCl (Ondansetron 4 Mg/2 Ml Vial) 4 mg IVP Q6HR PRN PRN Reason: Nausea / Vomiting Oxycodone HCl (Oxycodone 5 Mg Tablet) 5 mg PO Q4HR PRN PRN Reason: PAIN Pantoprazole Sodium (Pantoprazole 40 Mg Tablet) 40 mg PO QDAC [facility] Last Admin: 05/26/21 05:15 Dose: 40 mg Documented by: Desvenlafaxine Succinate [Pristiq Er] 50 Mg Tabs 1 each PO DAILY [facility] Last Admin: 05/26/21 10:29 Dose: Not Given Documented by: Pregabalin (Pregabalin 100 Mg Capsule) 100 mg PO DAILY [facility] Last Admin: 05/26/21 10:21 Dose: 100 mg Documented by: Prochlorperazine Edisylate (Prochlorperazine 10 Mg/2 Ml Vial) 10 mg IVP Q6HR PRN PRN Reason: Nausea / Vomiting Saccharomyces Boulardii (Saccharomyces Boulardii 250 Mg Capsule) 500 mg PO BIDWM [facility] Sodium Chloride (Sodium Chloride Flush 0.9% 10 Ml Syringe) 10 ml IVP 0100,0900,1700 [facility] Last Admin: 05/26/21 11:58 Dose: Not Given Documented by: Sodium Chloride (Sodium Chloride Flush 0.9% 10 Ml Syringe) 10 ml IVP PRN PRN PRN Reason: NEEDED PER PROVIDER ORDERS Last Admin: 05/24/21 06:31 Dose: 10 ml Documented by: Sodium Chloride (Sodium Chloride Flush 0.9% 10 Ml Syringe) 20 ml IVP PRN PRN PRN Reason: After Blood Draw Last Admin: 05/24/21 06:31 Dose: 20 ml Documented by: Valacyclovir HCl (Valacyclovir 500 Mg Tablet) 500 mg PO BID [facility] Last Admin: 05/26/21 10:21 Dose: 500 mg Documented by: Vancomycin HCl (Vancomycin 125 Mg Capsule) 125 mg PO QID [facility] Last Admin: 05/26/21 10:21 Dose: 125 mg Documented by: ARIPiprazole [Aripiprazole] 10 mg PO DAILY 05/18/21 Acyclovir [Zovirax] 1 applic TOP 5XD PRN 05/18/21 Amoxicillin 2,000 mg PO ONCE PRN 05/18/21 Cholecalciferol [Vitamin D3] 50 mcg PO DAILY 05/18/21 Clobetasol Propionate [Temovate] 1 applic TP BID PRN 05/18/21 Desvenlafaxine Succinate [Pristiq ER] 50 mg PO DAILY 05/18/21 Diclofenac Sodium [Voltaren Arthritis Pain] 2 gm TP QID PRN 05/18/21 Docosanol [Abreva] 1 applic TP ONCE PRN 05/18/21 Esomeprazole Magnesium [Nexium] 40 mg PO DAILY 05/18/21 Eszopiclone [Lunesta] 3 mg PO QPM 05/18/21 Hydroxychloroquine [Plaquenil] 200 mg PO BIDWM 05/18/21 Loratadine [Claritin] 10 mg PO DAILY 05/18/21 Losartan [Cozaar] 50 mg PO DAILY 05/18/21 Loteprednol Etabonate 1 drops EACHEYE BID PRN 05/18/21 Loteprednol Etabonate [Lotemax] 1 applic EACHEYE DAILY PRN 05/18/21 Multivitamin/Iron/Folic Acid [Centrum Women Tablet] 1 each PO DAILY 05/18/21 Oxybutynin [Ditropan] 5 mg PO DAILY 05/18/21 Pilocarpine HCl [Salagen] 5 mg PO QID 05/18/21 Pregabalin [Lyrica] 200 mg PO DAILY 05/18/21 Simvastatin [Zocor] 10 mg PO QPM 05/18/21 Triamcinolone 0.5% Cream [Kenalog 0.5% Cream] 1 applic TOP TID PRN 05/18/21 Valacyclovir HCl [Valtrex] 500 mg PO DAILY PRN 05/18/21 lamoTRIgine [LaMICtal] 100 mg PO DAILY 05/18/21 traMADol [Ultram] 50 mg PO Q4-6H PRN 05/18/21 Objective - Vital Signs/Intake & Output Reviewed Vital Signs: Yes Vital Signs: Vital Signs x48h Temp Pulse Resp BP Pulse Ox 05/26/21 05:09 36.6 C 80 16 146/74 H 96 05/26/21 02:11 88 18 134/75 H 95 05/25/21 23:22 36.6 C 85 18 130/70 98 Intake & Output: Intake & Output 05/23/21 05/24/21 05/25/21 05/26/21 23:59 23:59 23:59 23:59 Intake Total 6279.167 3186.667 1640 200 Output Total 827 9241 8525 600 Balance 5725.167 8981.667 -301 -400 - Objective General Appearance: positive: No acute distress, Alert Eyes Bilateral: positive: Normal inspection, PERRL, Conjunctivae nml ENT: positive: ENT inspection nml Neck: positive: Nml inspection Respiratory: positive: No respiratory distress. negative: Wheezes, Rales Cardiovascular: positive: Regular rate & rhythm, No murmur. negative: Tachycardia Abdomen: positive: Non-tender, No distention. negative: Tenderness Skin: positive: Warm, Dry Extremities: positive: Pedal edema (+2 pitting edema in the bilateral lower extremities) Neurologic/Psychiatric: positive: Motor nml, Sensation nml, Disoriented to time (Oriented to year but not to month.), Other (She is still intermittently confused with some answers but is quicker to respond and her speech is not delayed like it was yesterday.). negative: Disoriented to person, Disoriented to place - Lab Results Fish Bones: 05/26/21 06:16 05/26/21 06:16 Other Labs: Lab Results x24hrs 05/26/21 05/26/21 05/26/21 Range/Units 06:16 06:16 02:23 WBC 5.5 (4.8-10.8) x10^3/uL RBC 3.38 L (4.20-5.40) 10^6/uL Hgb 10.3 L (12.0-16.0) g/dL Hct 30.9 L (37.0-47.0) % MCV 91.4 (81.0-99.0) fL MCH 30.5 (27.0-31.0) pg MCHC 33.3 (32.0-36.0) g/dL RDW 16.0 H (12.0-15.0) % Sodium 143 (135-145) mmol/L Potassium 3.7 (3.5-5.0) mmol/L Chloride 116 H (101-111) mmol/L Carbon Dioxide 17 L (21-32) mmol/L Anion Gap 10.0 (6-13) BUN 31 H (6-20) mg/dL Creatinine 4.6 H (0.4-1.0) mg/dL Estimated GFR (MDRD) 10 L (>89) Glucose 92 (70-100) mg/dL Calcium 8.3 L (8.5-10.3) mg/dL Phosphorus 5.1 H (2.5-4.6) mg/dL Magnesium 2.2 (1.7-2.8) mg/dL Urine Color Urine Clarity (CLEAR) Urine pH (5.0-7.5) PH Ur Specific [place] (1.002-1.030) Urine Protein (NEGATIVE) mg/dL Urine Glucose (UA) (NEGATIVE) mg/dL Urine Ketones (NEGATIVE) mg/dL Urine Occult Blood (NEGATIVE) Urine Nitrite (NEGATIVE) Urine Bilirubin (NEGATIVE) Urine Urobilinogen (NORMAL) E.U./dL Ur Leukocyte Esterase (NEGATIVE) Urine RBC (0-5) /HPF Urine WBC (0-5) /HPF Ur Squamous Epith Cells (<= Few) Urine Bacteria (None Seen) /HPF Urine Sodium 64.0 mmol/L 05/26/21 05/25/21 Range/Units 01:55 04:34 WBC (4.8-10.8) x10^3/uL RBC (4.20-5.40) 10^6/uL Hgb (12.0-16.0) g/dL Hct (37.0-47.0) % MCV (81.0-99.0) fL MCH (27.0-31.0) pg MCHC (32.0-36.0) g/dL RDW (12.0-15.0) % Sodium (135-145) mmol/L Potassium (3.5-5.0) mmol/L Chloride (101-111) mmol/L Carbon Dioxide (21-32) mmol/L Anion Gap (6-13) BUN (6-20) mg/dL Creatinine (0.4-1.0) mg/dL Estimated GFR (MDRD) (>89) Glucose (70-100) mg/dL Calcium (8.5-10.3) mg/dL Phosphorus 4.8 H (2.5-4.6) mg/dL Magnesium 2.2 (1.7-2.8) mg/dL Urine Color YELLOW Urine Clarity CLEAR (CLEAR) Urine pH 5.5 (5.0-7.5) PH Ur Specific [place] 1.010 (1.002-1.030) Urine Protein NEGATIVE (NEGATIVE) mg/dL Urine Glucose (UA) NEGATIVE (NEGATIVE) mg/dL Urine Ketones NEGATIVE (NEGATIVE) mg/dL Urine Occult Blood [place] (NEGATIVE) Urine Nitrite NEGATIVE (NEGATIVE) Urine Bilirubin NEGATIVE (NEGATIVE) Urine Urobilinogen 0.2 (NORMAL) (NORMAL) E.U./dL Ur Leukocyte Esterase TRACE H (NEGATIVE) Urine RBC 0-5 (0-5) /HPF Urine WBC 4-5 (0-5) /HPF Ur Squamous Epith Cells MOD Squamous H (<= Few) Urine Bacteria Rare (None Seen) /HPF Urine Sodium mmol/L ABX Reporting Has patient been on IV antibiotics over the past 48 hours?: No Sepsis Event Note (H) - Evaluation Current Stage of Sepsis: Resolved Possible source of Sepsis: positive: GI tract/intra-abdominal - Sepsis Criteria Sepsis Criteria: WBC count greater than 12,000 or less than 4000, COMPONENT INSPECTOR: altered consciousness (unrelated to primary neuro pathology), SBP drop more than 40mHg, SBP less than 90 mmHg, Renal: urine output less than 0.5ml/kg/hr for 2 hours or creatinine gr Assessment/Plan - Problem List (1) Acute renal failure Impression: He has acute renal failure secondary to ATN due to hypotension from her initial sepsis. Her creatinine is increased again today although at a slower rate compared to the prior 2 days which I suspect is evidence of her renal function recovering and I think her creatinine is about to plateau before decreasing. Her urine output has also increased evidenced by to 2 L of output from yesterd ay. Imaging has not revealed any obstruction. Repeat urinalysis revealed no obvious granular casts. Her urine sodium is greater than 60 although she did receive p.o. Lasix the day prior to yesterday which may have caused this to be falsely elevated. At this point in time, we will hold off on further IV hydration as she is hypervolemic. We will continue to avoid all nephrotoxins. We will continue to monitor her renal function on a daily basis as I suspect this will begin to improve over the next 24 to 48 hours. I am hopeful she can be discharged once her creatinine shows an appropriate trend downwards. She will also need to be monitored over the next 24 to 48 hours for post ATN diures is as she will be at risk for electrolyte derangements. Family has already set up nephrology follow-up for next week back home in [place]. Qualifiers: Acute renal failure type: with acute tubular necrosis Qualified Code(s): N17.0 - Acute kidney failure with tubular necrosis (2) C. difficile colitis Impression: The cause of her sepsis and is significantly improved. Today is day 8 of oral vancomycin. She will need a total of 10 days of therapy which will likely be completed during this hospitalization. (3) Altered mental status Impression: This is improved although she is still intermittently confused and not back to her baseline. I suspect this is related to medication toxicity given her renal failure given she is on Lyrica at home and her dose was not adjusted given the renal failure. We have decreased her home dose of Lyrica and she has shown im provement today. I suspect she will continue to improve as her renal function recovers. Qualifiers: Altered mental status type: disorientation Qualified Code(s): R41.0 - Disorientation, unspecified (4) Bacteremia Impression: Initial blood cultures from May 18 grew Staph epidermidis in the anaerobic and aerobic bottle from the same set. The other blood culture has been negative to date. We suspect this is likely contaminant and the IV vancomycin was discontinued a few days ago. (5) Lower extremity edema Impression: This is secondary to the IV fluid resuscitation she received in a patient who has acute renal failure and was oliguric. Her echocardiogram revealed a preserved ejection fraction and her BNP was only mildly elevated. We will hold off on further diuresis given the lack of dyspnea and hypoxia as well as the fact that her urine output is increasing. Will encourage her to keep her legs elevated and we discussed that her edema will improve over the next few weeks as her renal function recovers. (6) Depression Impression: We are continuing her home Abilify and Pristiq. (7) Neuropathy Impression: We will continue the lower dose of Lyrica given the acute renal failure and her intermittent confusion. (8) Septic shock Impression: This was secondary to the C. difficile colitis. This is now resolved. She is normotensive and is no longer requiring ICU care.
[2021-05-26 07:56] LABS: ABNORMAL LYMPHS % (MANUAL) 0 %; BAND NEUTROPHILS % (MANUAL) 0 %
[2021-05-26 07:57] LABS: DIFFERENTIAL COMMENT MANUAL DIFFERENTIAL; EOSINOPHILS # (MANUAL) 0.6 10^3/uL (0-0.7); LYMPHOCYTES # (MANUAL) 0.2 10^3/uL (1.5-3.5); LYMPHOCYTES % (MANUAL) 3 %; MONOCYTES # (MANUAL) 0.3 10^3/uL (0.0-1.0); NEUTROPHILS # (MANUAL) 4.5 10^3/uL (1.5-6.6); PLATELET ESTIMATE, MANUAL NORMAL (130-450,000) (NORMAL); PLATELET MORPHOLOGY NORMAL APPEARANCE (NORMAL); RBC MORPHOLOGY (MULTIPLE) NORMAL APPEARANCE (NORMAL)
[2021-05-26] MEDS: HEPARIN 5,000 UNIT/ML VIAL SUBQ SCH ×2 (10:20→20:20)
[2021-05-26] MEDS: ARIPiprazole 5 MG TABLET PO SCH (10:20)
[2021-05-26] MEDS: lamoTRIgine 100 MG TABLET PO SCH (10:21)
[2021-05-26] MEDS: PREGABALIN 100 MG CAPSULE PO SCH (10:21)
[2021-05-26] MEDS: valACYclovir 500 MG TABLET PO SCH ×2 (10:21→20:21)
[2021-05-26] MEDS: VANCOMYCIN 125 MG CAPSULE PO SCH ×4 (10:21→20:21)
[2021-05-26] MEDS: DESVENLAFAXINE SUCCINATE 50 MG PO SCH (10:29)
[2021-05-26] MEDS: SACCHAROMYCES BOULARDII 250 MG CAPSULE PO SCH (18:17)
[2021-05-26] MEDS: ATORVASTATIN 10 MG TABLET PO SCH (20:21)
[2021-05-27] MEDS: SODIUM CHLORIDE FLUSH 0.9% 10 ML SYRINGE IVP SCH ×4 (05:26→21:31)
[2021-05-27] MEDS: PANTOPRAZOLE 40 MG TABLET PO SCH (05:27)
[2021-05-27 05:52] LABS: BASOPHILS % (AUTO) 0.7 %; EOSINOPHILS % (AUTO) 8.2 %; HCT - HEMATOCRIT 32.9 % (37.0-47.0); HGB - HEMOGLOBIN 10.6 g/dL (12.0-16.0); LYMPHOCYTES % (AUTO) 9.9 %; MEAN CORPUSCULAR HEMOGLOBIN 29.4 pg (27.0-31.0); MEAN CORPUSCULAR HGB CONC 32.2 g/dL (32.0-36.0); MEAN CORPUSCULAR VOLUME 91.4 fL (81.0-99.0); MEAN PLATELET VOLUME 10.3 fL (7.9-10.8); PLT - PLATELET COUNT 297 10^3/uL (130-450); RED CELL DISTRIBUTION WIDTH 15.9 % (12.0-15.0); WHITE BLOOD COUNT 5.6 x10^3/uL (4.8-10.8)
[2021-05-27 06:00] LABS: ABNORMAL LYMPHS % (MANUAL) 0 %
[2021-05-27 06:05] LABS: CALCIUM 8.4 mg/dL (8.5-10.3); CREATININE 5.2 mg/dL (0.4-1.0); MAGNESIUM 2.4 mg/dL (1.7-2.8); PHOSPHORUS 5.4 mg/dL (2.5-4.6); POTASSIUM 3.8 mmol/L (3.5-5.0)
[2021-05-27 06:17] LABS: BAND NEUTROPHILS % (MANUAL) 1 %; DIFFERENTIAL COMMENT MANUAL DIFFERENTIAL; EOSINOPHILS # (MANUAL) 0.2 10^3/uL (0-0.7); LYMPHOCYTES % (MANUAL) 18 %; MONOCYTES # (MANUAL) 0.2 10^3/uL (0.0-1.0); NEUTROPHILS # (MANUAL) 4.3 10^3/uL (1.5-6.6); PLATELET ESTIMATE, MANUAL NORMAL (130-450,000) (NORMAL); RBC MORPHOLOGY (MULTIPLE) NORMAL APPEARANCE (NORMAL)
--- NOTE | 2021-05-27 07:41 | PROVIDER PROGRESS NOTE ---
Subjective - Prog Note Date Prog Note Date: 05/27/21 - Subjective Subjective: She continues to report feeling well. She is eager on going home soon as possible. She would also like to walk around the halls a little more today. Denies abdominal pain. Reports no more diarrhea. Current Medications - Current Medications Current Medications: Active Medications Acetaminophen (Acetaminophen 325 Mg Tablet) 650 mg PO Q4HR PRN PRN Reason: Pain 1 to 4 Last Admin: 05/18/21 20:08 Dose: 650 mg Documented by: Aripiprazole (Aripiprazole 5 Mg Tablet) 10 mg PO DAILY [facility] Last Admin: 05/27/21 10:00 Dose: 10 mg Documented by: Atorvastatin Calcium (Atorvastatin 10 Mg Tablet) 10 mg PO QPM [facility] Last Admin: 05/26/21 20:21 Dose: 10 mg Documented by: Heparin Sodium (Porcine) (Heparin 5,000 Unit/Ml Vial) 5,000 unit SUBQ BID [facility] Last Admin: 05/27/21 10:00 Dose: 5,000 unit Documented by: Sodium Chloride (Normal Saline 0.9%) 500 mls @ 20 mls/hr IV Q24H PRN PRN Reason: TKO RATE Lamotrigine (Lamotrigine 100 Mg Tablet) 100 mg PO DAILY [facility] Last Admin: 05/27/21 10:00 Dose: 100 mg Documented by: Lidocaine HCl (Lidocaine Viscous 2% 15 Ml Udc) 5 ml MM Q4H PRN PRN Reason: Mouth Sore Pain Last Admin: 05/21/21 06:33 Dose: 5 ml Documented by: Mineral Oil (Min Oil/Dimethicon/Coconut Oil 92 Gm Tube) 1 applic TOP PRN PRN PRN Reason: Skin Care Last Admin: 05/19/21 18:45 Dose: 1 applic Documented by: Ondansetron HCl (Ondansetron 4 Mg/2 Ml Vial) 4 mg IVP Q6HR PRN PRN Reason: Nausea / Vomiting Oxycodone HCl (Oxycodone 5 Mg Tablet) 5 mg PO Q4HR PRN PRN Reason: PAIN Pantoprazole Sodium (Pantoprazole 40 Mg Tablet) 40 mg PO QDAC [facility] Last Admin: 05/27/21 05:27 Dose: 40 mg Documented by: Desvenlafaxine Succinate [Pristiq Er] 50 Mg Tabs 1 each PO DAILY [facility] Last Admin: 05/27/21 12:48 Dose: 1 each Documented by: Pregabalin (Pregabalin 100 Mg Capsule) 100 mg PO DAILY [facility] Last Admin: 05/27/21 10:00 Dose: 100 mg Documented by: Prochlorperazine Edisylate (Prochlorperazine 10 Mg/2 Ml Vial) 10 mg IVP Q6HR PRN PRN Reason: Nausea / Vomiting Saccharomyces Boulardii (Saccharomyces Boulardii 250 Mg Capsule) 500 mg PO BIDWM [facility] Last Admin: 05/27/21 10:00 Dose: 500 mg Documented by: Sodium Chloride (Sodium Chloride Flush 0.9% 10 Ml Syringe) 10 ml IVP 0100,0900,1700 [facility] Last Admin: 05/27/21 10:00 Dose: 10 ml Documented by: Sodium Chloride (Sodium Chloride Flush 0.9% 10 Ml Syringe) 10 ml IVP PRN PRN PRN Reason: NEEDED PER PROVIDER ORDERS Last Admin: 05/24/21 06:31 Dose: 10 ml Documented by: Sodium Chloride (Sodium Chloride Flush 0.9% 10 Ml Syringe) 20 ml IVP PRN PRN PRN Reason: After Blood Draw Last Admin: 05/24/21 06:31 Dose: 20 ml Documented by: Valacyclovir HCl (Valacyclovir 500 Mg Tablet) 500 mg PO BID [facility] Last Admin: 05/27/21 10:00 Dose: 500 mg Documented by: Vancomycin HCl (Vancomycin 125 Mg Capsule) 125 mg PO QID [facility] Last Admin: 05/27/21 12:47 Dose: 125 mg Documented by: ARIPiprazole [Aripiprazole] 10 mg PO DAILY 05/18/21 Acyclovir [Zovirax] 1 applic TOP 5XD PRN 05/18/21 Amoxicillin 2,000 mg PO ONCE PRN 05/18/21 Cholecalciferol [Vitamin D3] 50 mcg PO DAILY 05/18/21 Clobetasol Propionate [Temovate] 1 applic TP BID PRN 05/18/21 Desvenlafaxine Succinate [Pristiq ER] 50 mg PO DAILY 05/18/21 Diclofenac Sodium [Voltaren Arthritis Pain] 2 gm TP QID PRN 05/18/21 Docosanol [Abreva] 1 applic TP ONCE PRN 05/18/21 Esomeprazole Magnesium [Nexium] 40 mg PO DAILY 05/18/21 Eszopiclone [Lunesta] 3 mg PO QPM 05/18/21 Hydroxychloroquine [Plaquenil] 200 mg PO BIDWM 05/18/21 Loratadine [Claritin] 10 mg PO DAILY 05/18/21 Losartan [Cozaar] 50 mg PO DAILY 05/18/21 Loteprednol Etabonate 1 drops EACHEYE BID PRN 05/18/21 Loteprednol Etabonate [Lotemax] 1 applic EACHEYE DAILY PRN 05/18/21 Multivitamin/Iron/Folic Acid [Centrum Women Tablet] 1 each PO DAILY 05/18/21 Oxybutynin [Ditropan] 5 mg PO DAILY 05/18/21 Pilocarpine HCl [Salagen] 5 mg PO QID 05/18/21 Pregabalin [Lyrica] 200 mg PO DAILY 05/18/21 Simvastatin [Zocor] 10 mg PO QPM 05/18/21 Triamcinolone 0.5% Cream [Kenalog 0.5% Cream] 1 applic TOP TID PRN 05/18/21 Valacyclovir HCl [Valtrex] 500 mg PO DAILY PRN 05/18/21 lamoTRIgine [LaMICtal] 100 mg PO DAILY 05/18/21 traMADol [Ultram] 50 mg PO Q4-6H PRN 05/18/21 Objective - Vital Signs/Intake & Output Reviewed Vital Signs: Yes Vital Signs: Vital Signs x48h Temp Pulse Resp BP Pulse Ox 05/27/21 05:17 36.5 C 22 143/72 H 95 05/27/21 00:34 36.5 C 88 18 141/75 H 96 Intake & Output: Intake & Output 05/24/21 05/25/21 05/26/21 05/27/21 23:59 23:59 23:59 23:59 Intake Total 3186.667 1640 1210 200 Output Total 1275 2175 1525 350 Balance 1911.667 -535 -315 -150 - Objective General Appearance: positive: No acute distress, Alert Eyes Bilateral: positive: Normal inspection, Conjunctivae nml ENT: positive: ENT inspection nml Neck: positive: Nml inspection Respiratory: positive: No respiratory distress. negative: Wheezes, Rales Cardiovascular: positive: Regular rate & rhythm. negative: Tachycardia Abdomen: positive: Non-tender, No distention. negative: Tenderness Skin: positive: Warm, Dry Extremities: positive: Pedal edema (+2 pitting edema in bilateral lower extremities.) Neurologic/Psychiatric: positive: Disoriented to time (She knows the year but not the month.). negative: Disoriented to person, Disoriented to place - Lab Results Fish Bones: 05/27/21 05:34 05/27/21 05:34 Other Labs: Lab Results x24hrs 05/27/21 05/27/21 05/26/21 Range/Units 05:34 05:34 06:16 WBC 5.6 5.5 (4.8-10.8) x10^3/uL RBC 3.60 L 3.38 L (4.20-5.40) 10^6/uL Hgb 10.6 L 10.3 L (12.0-16.0) g/dL Hct 32.9 L 30.9 L (37.0-47.0) % MCV 91.4 91.4 (81.0-99.0) fL MCH 29.4 30.5 (27.0-31.0) pg MCHC 32.2 33.3 (32.0-36.0) g/dL RDW 15.9 H 16.0 H (12.0-15.0) % Plt Count 297 279 (130-450) 10^3/uL MPV 10.3 10.4 (7.9-10.8) fL Neut # (Auto) Not Reportable Not Reportable Lymph # (Auto) Not Reportable Not Reportable Carbon # (Auto) Not Reportable Not Reportable Eos # (Auto) Not Reportable Not Reportable Baso # (Auto) Not Reportable Not Reportable Absolute Nucleated RBC Not Reportable Not Reportable Total Counted 100 100 Band Neuts % (Manual) 1 0 (0 - 10) % Abnorm Lymph % (Manual) 0 0 % Nucleated RBC % Not Reportable Not Reportable Neutrophils # (Manual) 4.3 4.5 (1.5-6.6) 10^3/uL Lymphocytes # (Manual) 1.0 L 0.2 L (1.5-3.5) 10^3/uL Monocytes # (Manual) 0.2 0.3 (0.0-1.0) 10^3/uL Eosinophils # (Manual) 0.2 0.6 (0-0.7) 10^3/uL Basophils # (Manual) 0.0 0.0 (0-0.1) 10^3/uL Differential Comment MANUAL DIFFERENTIAL MANUAL DIFFERENTIAL Manual Slide Review Indicated Platelet Estimate NORMAL (130-450,000) NORMAL (130-450,000) (NORMAL) Platelet Morphology NORMAL APPEARANCE (NORMAL) RBC Morph Micro Appear NORMAL APPEARANCE NORMAL APPEARANCE (NORMAL) Sodium 144 (135-145) mmol/L Potassium 3.8 (3.5-5.0) mmol/L Chloride 115 H (101-111) mmol/L Carbon Dioxide 18 L (21-32) mmol/L Anion Gap 11.0 (6-13) BUN 32 H (6-20) mg/dL Creatinine 5.2 H (0.4-1.0) mg/dL Estimated GFR (MDRD) 8 L (>89) Glucose 91 (70-100) mg/dL Calcium 8.4 L (8.5-10.3) mg/dL Phosphorus 5.4 H (2.5-4.6) mg/dL Magnesium 2.4 (1.7-2.8) mg/dL Sepsis Event Note (H) - Evaluation Current Stage of Sepsis: Resolved Possible source of Sepsis: positive: GI tract/intra-abdominal - Sepsis Criteria Sepsis Criteria: WBC count greater than 12,000 or less than 4000, [employer]: altered consciousness (unrelated to primary neuro pathology), SBP drop more than 40mHg, SBP less than 90 mmHg, Renal: urine output less than 0.5ml/kg/hr for 2 hours or creatinine gr Assessment/Plan - Problem List (1) Acute renal failure Impression: Her acute kidney injury secondary to ATN. Unfortunately, her renal function continues to decline as her creatinine today is 5.2. It appears she was plateauing yesterday given the mild rise in her creatinine but today suggests that her renal function has not shown evidence of recovery although her urine output is stable. Fortunately, there is no indication for hemodialysis at this time given her acceptable electrolytes and volume status. Imaging has not revealed obstruction. Repeat urinalysis showed no obvious granular casts in her urine sodium was greater than 60 although she had received Lasix a day prior to this being obtained. At this time, we will continue supportive measures and continue to avoid hypotension and nephrotoxins. If renal function continues to decline then I will speak with nephrology again although I am not sure that there is an indication for transfer this time unless she needs hemodialysis. Qualifiers: Acute renal failure type: with acute tubular necrosis Qualified Code(s): N17.0 - Acute kidney failure with tubular necrosis (2) C. difficile colitis Impression: This was the cause of her sepsis. Her diarrhea has resolved and today is day 9 of oral vancomycin. Tomorrow is the last day of therapy. (3) Altered mental status Impression: She continues to improve from a confusion standpoint. Although she still gets the month mixed up, she is much weaker to respond and is able to provide an accurate history and timeline. I suspect is related to medication toxicity in somebody who had renal failure. We have decreased her home Lyrica dose and will even consider discontinuing this for a few days if necessary. Qualifiers: Altered mental status type: disorientation Qualified Code(s): R41.0 - Disorientation, unspecified (4) Bacteremia Impression: Initial blood cultures from May 18 grew Staph epidermidis in the anaerobic and aerobic bottle from the same set. The other blood culture has been negative to date. We suspect this is likely contaminant and the IV vancomycin was discontinued a few days ago. (5) Lower extremity edema Impression: She continues to have lower extremity edema secondary to the IV fluid she received for her acute renal failure. Her echocardiogram did not suggest heart failure. We discussed once again that this will improve as her renal function recovers and her urine output increases. We continue to encourage leg elevation while she is in bed or in a chair. (6) Depression Impression: We are continuing her home Abilify and Pristiq. (7) Neuropathy Impression: We will continue the lower dose of Lyrica given the acute renal failure and her intermittent confusion. As mentioned above we will consider discontinuing this altogether if her mentation declines. (8) Septic shock Impression: This was secondary to the C. difficile colitis. This is now resolved.
[2021-05-27] MEDS: ARIPiprazole 5 MG TABLET PO SCH (10:00)
[2021-05-27] MEDS: lamoTRIgine 100 MG TABLET PO SCH (10:00)
[2021-05-27] MEDS: HEPARIN 5,000 UNIT/ML VIAL SUBQ SCH ×2 (10:00→21:32)
[2021-05-27] MEDS: SACCHAROMYCES BOULARDII 250 MG CAPSULE PO SCH ×2 (10:00→16:19)
[2021-05-27] MEDS: VANCOMYCIN 125 MG CAPSULE PO SCH ×4 (10:00→21:30)
[2021-05-27] MEDS: valACYclovir 500 MG TABLET PO SCH ×2 (10:00→21:30)
[2021-05-27] MEDS: PREGABALIN 100 MG CAPSULE PO SCH (10:00)
[2021-05-27] MEDS: DESVENLAFAXINE SUCCINATE 50 MG PO SCH (12:48)
[2021-05-27] MEDS: ATORVASTATIN 10 MG TABLET PO SCH (21:30)
[2021-05-28 06:06] LABS: BASOPHILS # (AUTO) 0.1 10^3/uL (0.0-0.1); EOSINOPHILS # (AUTO) 0.4 10^3/uL (0.0-0.7); EOSINOPHILS % (AUTO) 7.3 %; HCT - HEMATOCRIT 30.1 % (37.0-47.0); HGB - HEMOGLOBIN 9.6 g/dL (12.0-16.0); LYMPHOCYTES # (AUTO) 0.6 10^3/uL (1.5-3.5); LYMPHOCYTES % (AUTO) 11.5 %; MEAN CORPUSCULAR HEMOGLOBIN 29.7 pg (27.0-31.0); MEAN CORPUSCULAR HGB CONC 31.9 g/dL (32.0-36.0); MEAN CORPUSCULAR VOLUME 93.2 fL (81.0-99.0); MEAN PLATELET VOLUME 11.1 fL (7.9-10.8); MONOCYTES # (AUTO) 0.3 10^3/uL (0.0-1.0); MONOCYTES % (AUTO) 6.3 %; NEUTROPHILS # (AUTO) 3.5 10^3/uL (1.5-6.6); NEUTROPHILS % (AUTO) 69.1 %; PLT - PLATELET COUNT 270 10^3/uL (130-450); RED BLOOD COUNT 3.23 10^6/uL (4.20-5.40); RED CELL DISTRIBUTION WIDTH 15.9 % (12.0-15.0)
[2021-05-28 06:21] LABS: CALCIUM 8.1 mg/dL (8.5-10.3); CREATININE 5.1 mg/dL (0.4-1.0); MAGNESIUM 2.2 mg/dL (1.7-2.8); PHOSPHORUS 6.2 mg/dL (2.5-4.6)
[2021-05-28] MEDS: PANTOPRAZOLE 40 MG TABLET PO SCH (07:16)
--- NOTE | 2021-05-28 07:19 | PROVIDER PROGRESS NOTE ---
Subjective - Prog Note Date Prog Note Date: 05/28/21 - Subjective Subjective: She reports doing well. She was happy she is able to walk in the hallways yesterday. Denies abdominal pain or diarrhea. Current Medications - Current Medications Current Medications: Active Medications Acetaminophen (Acetaminophen 325 Mg Tablet) 650 mg PO Q4HR PRN PRN Reason: Pain 1 to 4 Last Admin: 05/18/21 20:08 Dose: 650 mg Documented by: Aripiprazole (Aripiprazole 5 Mg Tablet) 10 mg PO DAILY [facility] Last Admin: 05/27/21 10:00 Dose: 10 mg Documented by: Atorvastatin Calcium (Atorvastatin 10 Mg Tablet) 10 mg PO QPM [facility] Last Admin: 05/27/21 21:30 Dose: 10 mg Documented by: Heparin Sodium (Porcine) (Heparin 5,000 Unit/Ml Vial) 5,000 unit SUBQ BID [facility] Last Admin: 05/27/21 21:32 Dose: 5,000 unit Documented by: Sodium Chloride (Normal Saline 0.9%) 500 mls @ 20 mls/hr IV Q24H PRN PRN Reason: TKO RATE Dextrose/Sodium Chloride (D5.45ns) 1,000 mls @ 100 mls/hr IV .Q10H [facility] Stop: 05/28/21 17:59 Lamotrigine (Lamotrigine 100 Mg Tablet) 100 mg PO DAILY [facility] Last Admin: 05/27/21 10:00 Dose: 100 mg Documented by: Lidocaine HCl (Lidocaine Viscous 2% 15 Ml Udc) 5 ml MM Q4H PRN PRN Reason: Mouth Sore Pain Last Admin: 05/21/21 06:33 Dose: 5 ml Documented by: Mineral Oil (Min Oil/Dimethicon/Coconut Oil 92 Gm Tube) 1 applic TOP PRN PRN PRN Reason: Skin Care Last Admin: 05/19/21 18:45 Dose: 1 applic Documented by: Ondansetron HCl (Ondansetron 4 Mg/2 Ml Vial) 4 mg IVP Q6HR PRN PRN Reason: Nausea / Vomiting Oxycodone HCl (Oxycodone 5 Mg Tablet) 5 mg PO Q4HR PRN PRN Reason: PAIN Pantoprazole Sodium (Pantoprazole 40 Mg Tablet) 40 mg PO QDAC [facility] Last Admin: 05/28/21 07:16 Dose: 40 mg Documented by: Desvenlafaxine Succinate [Pristiq Er] 50 Mg Tabs 1 each PO DAILY [facility] Last Admin: 05/27/21 12:48 Dose: 1 each Documented by: Pregabalin (Pregabalin 100 Mg Capsule) 100 mg PO DAILY [facility] Last Admin: 05/27/21 10:00 Dose: 100 mg Documented by: Prochlorperazine Edisylate (Prochlorperazine 10 Mg/2 Ml Vial) 10 mg IVP Q6HR PRN PRN Reason: Nausea / Vomiting Saccharomyces Boulardii (Saccharomyces Boulardii 250 Mg Capsule) 500 mg PO BIDWM [facility] Last Admin: 05/27/21 16:19 Dose: 500 mg Documented by: Sodium Chloride (Sodium Chloride Flush 0.9% 10 Ml Syringe) 10 ml IVP 0100,0900,1700 [facility] Last Admin: 05/27/21 21:31 Dose: 10 ml Documented by: Sodium Chloride (Sodium Chloride Flush 0.9% 10 Ml Syringe) 10 ml IVP PRN PRN PRN Reason: NEEDED PER PROVIDER ORDERS Last Admin: 05/24/21 06:31 Dose: 10 ml Documented by: Sodium Chloride (Sodium Chloride Flush 0.9% 10 Ml Syringe) 20 ml IVP PRN PRN PRN Reason: After Blood Draw Last Admin: 05/24/21 06:31 Dose: 20 ml Documented by: Valacyclovir HCl (Valacyclovir 500 Mg Tablet) 500 mg PO BID [facility] Last Admin: 05/27/21 21:30 Dose: 500 mg Documented by: Vancomycin HCl (Vancomycin 125 Mg Capsule) 125 mg PO QID [facility] Last Admin: 05/27/21 21:30 Dose: 125 mg Documented by: ARIPiprazole [Aripiprazole] 10 mg PO DAILY 05/18/21 Acyclovir [Zovirax] 1 applic TOP 5XD PRN 05/18/21 Amoxicillin 2,000 mg PO ONCE PRN 05/18/21 Cholecalciferol [Vitamin D3] 50 mcg PO DAILY 05/18/21 Clobetasol Propionate [Temovate] 1 applic TP BID PRN 05/18/21 Desvenlafaxine Succinate [Pristiq ER] 50 mg PO DAILY 05/18/21 Diclofenac Sodium [Voltaren Arthritis Pain] 2 gm TP QID PRN 05/18/21 Docosanol [Abreva] 1 applic TP ONCE PRN 05/18/21 Esomeprazole Magnesium [Nexium] 40 mg PO DAILY 05/18/21 Eszopiclone [Lunesta] 3 mg PO QPM 05/18/21 Hydroxychloroquine [Plaquenil] 200 mg PO BIDWM 05/18/21 Loratadine [Claritin] 10 mg PO DAILY 05/18/21 Losartan [Cozaar] 50 mg PO DAILY 05/18/21 Loteprednol Etabonate 1 drops EACHEYE BID PRN 05/18/21 Loteprednol Etabonate [Lotemax] 1 applic EACHEYE DAILY PRN 05/18/21 Multivitamin/Iron/Folic Acid [Centrum Women Tablet] 1 each PO DAILY 05/18/21 Oxybutynin [Ditropan] 5 mg PO DAILY 05/18/21 Pilocarpine HCl [Salagen] 5 mg PO QID 05/18/21 Pregabalin [Lyrica] 200 mg PO DAILY 05/18/21 Simvastatin [Zocor] 10 mg PO QPM 05/18/21 Triamcinolone 0.5% Cream [Kenalog 0.5% Cream] 1 applic TOP TID PRN 05/18/21 Valacyclovir HCl [Valtrex] 500 mg PO DAILY PRN 05/18/21 lamoTRIgine [LaMICtal] 100 mg PO DAILY 05/18/21 traMADol [Ultram] 50 mg PO Q4-6H PRN 05/18/21 Objective - Vital Signs/Intake & Output Reviewed Vital Signs: Yes Vital Signs: Vital Signs x48h Temp Pulse Resp BP Pulse Ox 05/28/21 03:00 36.7 C 85 16 141/65 H 96 Intake & Output: Intake & Output 05/25/21 05/26/21 05/27/21 05/28/21 23:59 23:59 23:59 23:59 Intake Total 1640 1210 2009 200 Output Total 2175 1525 1900 350 Balance -535 -315 110 -150 - Objective General Appearance: positive: No acute distress, Alert Eyes Bilateral: positive: Normal inspection, Conjunctivae nml ENT: positive: ENT inspection nml Neck: positive: Nml inspection Respiratory: positive: No respiratory distress. negative: Wheezes, Rales Cardiovascular: positive: Regular rate & rhythm. negative: Tachycardia, Systolic murmur Abdomen: positive: Non-tender, No distention. negative: Tenderness Skin: positive: Warm, Dry Extremities: positive: Pedal edema (+2 pitting edema bilateral lower extremities.) Neurologic/Psychiatric: positive: Disoriented to time (She is still disoriented to the month.), Other (She is quite quick to respond to questions and appears close to her baseline with neurologic standpoint. Still not oriented to month but otherwise is able to provide history and timeline.). negative: Disoriented to person, Disoriented to place - Lab Results Fish Bones: 05/28/21 04:22 05/28/21 04:22 Other Labs: Lab Results x24hrs 05/28/21 05/28/21 05/28/21 Range/Units 04:22 04:22 04:22 WBC 5.0 (4.8-10.8) x10^3/uL RBC 3.23 L (4.20-5.40) 10^6/uL Hgb 9.6 L (12.0-16.0) g/dL Hct 30.1 L (37.0-47.0) % MCV 93.2 (81.0-99.0) fL MCH 29.7 (27.0-31.0) pg MCHC 31.9 L (32.0-36.0) g/dL RDW 15.9 H (12.0-15.0) % Plt Count 270 (130-450) 10^3/uL MPV 11.1 H (7.9-10.8) fL Neut # (Auto) 3.5 (1.5-6.6) 10^3/uL Lymph # (Auto) 0.6 L (1.5-3.5) 10^3/uL [place] # (Auto) 0.3 (0.0-1.0) 10^3/uL Eos # (Auto) 0.4 (0.0-0.7) 10^3/uL Baso # (Auto) 0.1 (0.0-0.1) 10^3/uL Absolute Nucleated RBC 0.00 x10^3/uL Nucleated RBC % 0.0 /100WBC Sodium 146 H (135-145) mmol/L Potassium 4.0 (3.5-5.0) mmol/L Chloride 117 H (101-111) mmol/L Carbon Dioxide 17 L (21-32) mmol/L Anion Gap 12.0 (6-13) BUN 31 H (6-20) mg/dL Creatinine 5.1 H (0.4-1.0) mg/dL Estimated GFR (MDRD) 8 L (>89) Glucose 94 (70-100) mg/dL Calcium 8.1 L (8.5-10.3) mg/dL Phosphorus 6.2 H (2.5-4.6) mg/dL Magnesium 2.2 (1.7-2.8) mg/dL Albumin 2.5 L (3.2-5.5) g/dL ABX Reporting Has patient been on IV antibiotics over the past 48 hours?: No Sepsis Event Note (H) - Evaluation Current Stage of Sepsis: Resolved Possible source of Sepsis: positive: GI tract/intra-abdominal - Sepsis Criteria Sepsis Criteria: WBC count greater than 12,000 or less than 4000, [employer]: altered consciousness (unrelated to primary neuro pathology), SBP drop more than 40mHg, SBP less than 90 mmHg, Renal: urine output less than 0.5ml/kg/hr for 2 hours or creatinine gr Assessment/Plan - Problem List (1) Acute renal failure Impression: Her acute kidney injury secondary to ATN due to transient hypotension from sepsis. Appears that her creatinine has plateaued as it is slightly decreased today at 5.1. Her urine output also remains adequate at about 2 L a day. Her potassium is stable and although her bicarbonate is slightly decreased today, it is overall stable. Imaging has not revealed any obstruction. I am hopeful that the plateauing of her creatinine is evidence of her renal function improving especially given her urine output is about 2 L a day. If her creatinine begins to trend down then we can look to discharge her home over the next 2 to 3 days as long as we have a clear trend of improving renal function. We will need to monitor for post ATN diuresis. Continue to avoid hypotension and nephrotoxins. Qualifiers: Acute renal failure type: with acute tubular necrosis Qualified Code(s): N17.0 - Acute kidney failure with tubular necrosis (2) C. difficile colitis Impression: Significantly improved. Today's last day of oral vancomycin. She will have completed 10 days of therapy. (3) Altered mental status Impression: This is now nearly resolved. She still disoriented to the month but is much quicker to answer questions and is able to tell me the timeline over the past few weeks. We will continue her current lower dose of Lyrica given we suspect this may have been contributing to her altered metal status given her renal failure. We will resume her home dose as renal function recovers. Qualifiers: Altered mental status type: disorientation Qualified Code(s): R41.0 - Disorientation, unspecified (4) Hypernatremia Impression: Sodium is increased this morning to 146. This is likely due to excess free water loss and may be evidence of her recovering renal function as she is at risk for post ATN diuresis. I have encouraged her to increase her free water intake and we will recheck a BMP this evening. If her sodium still increases then she will need D5 water. (5) Bacteremia Impression: Initial blood cultures from May 18 grew Staph epidermidis in the anaerobic and aerobic bottle from the same set. The other blood culture has been negative to date. We suspect this is likely contaminant and the IV vancomycin was discontinued a few days ago. (6) Lower extremity edema Impression: She continues to have lower extremity edema secondary to the IV fluid she received for her acute renal failure. Her echocardiogram did not suggest heart failure. Given she shows evidence of renal recovery suspect her edema will begin to improve over the next few weeks as her urine output increases. Continue with leg elevation. (7) Depression Impression: We are continuing her home Abilify and Pristiq. (8) Neuropathy Impression: Stable. We will continue her lower dose of Lyrica for the time being. (9) Septic shock Impression: This was secondary to the C. difficile colitis. This is now resolved.
[2021-05-28] MEDS ORDERED: DEXTROSE 5%-0.45% NACL 1,000 ML IV SCH (08:00)
[2021-05-28] MEDS: SACCHAROMYCES BOULARDII 250 MG CAPSULE PO SCH ×2 (08:14→16:56)
[2021-05-28] MEDS: HEPARIN 5,000 UNIT/ML VIAL SUBQ SCH ×2 (09:02→20:57)
[2021-05-28] MEDS: ARIPiprazole 5 MG TABLET PO SCH (09:05)
[2021-05-28] MEDS: valACYclovir 500 MG TABLET PO SCH ×2 (09:05→20:57)
[2021-05-28] MEDS: VANCOMYCIN 125 MG CAPSULE PO SCH ×4 (09:07→20:57)
[2021-05-28] MEDS: lamoTRIgine 100 MG TABLET PO SCH (09:07)
[2021-05-28] MEDS: PREGABALIN 100 MG CAPSULE PO SCH (09:08)
[2021-05-28] MEDS: SODIUM CHLORIDE FLUSH 0.9% 10 ML SYRINGE IVP SCH ×3 (09:10→20:57)
[2021-05-28] MEDS: DESVENLAFAXINE SUCCINATE 50 MG PO SCH (09:12)
[2021-05-28 19:14] LABS: CALCIUM 8.3 mg/dL (8.5-10.3); CREATININE 5.1 mg/dL (0.4-1.0); POTASSIUM 3.9 mmol/L (3.5-5.0)
[2021-05-28] MEDS: ATORVASTATIN 10 MG TABLET PO SCH (20:57)
[2021-05-29 05:16] LABS: BASOPHILS % (AUTO) 0.8 %; EOSINOPHILS # (AUTO) 0.3 10^3/uL (0.0-0.7); EOSINOPHILS % (AUTO) 6.8 %; HCT - HEMATOCRIT 29.5 % (37.0-47.0); HGB - HEMOGLOBIN 9.5 g/dL (12.0-16.0); LYMPHOCYTES # (AUTO) 0.6 10^3/uL (1.5-3.5); MEAN CORPUSCULAR HEMOGLOBIN 29.7 pg (27.0-31.0); MEAN CORPUSCULAR HGB CONC 32.2 g/dL (32.0-36.0); MEAN CORPUSCULAR VOLUME 92.2 fL (81.0-99.0); MEAN PLATELET VOLUME 9.9 fL (7.9-10.8); MONOCYTES # (AUTO) 0.3 10^3/uL (0.0-1.0); MONOCYTES % (AUTO) 5.8 %; NEUTROPHILS # (AUTO) 3.5 10^3/uL (1.5-6.6); NEUTROPHILS % (AUTO) 70.8 %; PLT - PLATELET COUNT 238 10^3/uL (130-450); RED CELL DISTRIBUTION WIDTH 15.8 % (12.0-15.0)
[2021-05-29 05:27] LABS: CALCIUM 8.2 mg/dL (8.5-10.3); MAGNESIUM 2.1 mg/dL (1.7-2.8); PHOSPHORUS 6.5 mg/dL (2.5-4.6)
[2021-05-29] MEDS: PANTOPRAZOLE 40 MG TABLET PO SCH (06:59)
--- NOTE | 2021-05-29 07:18 | PROVIDER PROGRESS NOTE ---
Subjective - Prog Note Date Prog Note Date: 05/29/21 - Subjective Subjective: She continues to report feeling well. She was able to walk the hallways yesterday and was very happy to do so. Denies any chest pain, dyspnea, vomiting, diarrhea. Current Medications - Current Medications Current Medications: Active Medications Acetaminophen (Acetaminophen 325 Mg Tablet) 650 mg PO Q4HR PRN PRN Reason: Pain 1 to 4 Last Admin: 05/18/21 20:08 Dose: 650 mg Documented by: Aripiprazole (Aripiprazole 5 Mg Tablet) 10 mg PO DAILY [facility] Last Admin: 05/29/21 08:47 Dose: 10 mg Documented by: Atorvastatin Calcium (Atorvastatin 10 Mg Tablet) 10 mg PO QPM [facility] Last Admin: 05/28/21 20:57 Dose: 10 mg Documented by: Heparin Sodium (Porcine) (Heparin 5,000 Unit/Ml Vial) 5,000 unit SUBQ BID [facility] Last Admin: 05/29/21 08:53 Dose: 5,000 unit Documented by: Hydroxychloroquine Sulfate (Hydroxychloroquine 200 Mg Tablet) 200 mg PO BIDWM [facility] Sodium Chloride (Normal Saline 0.9%) 500 mls @ 20 mls/hr IV Q24H PRN PRN Reason: TKO RATE Lamotrigine (Lamotrigine 100 Mg Tablet) 100 mg PO DAILY [facility] Last Admin: 05/29/21 08:48 Dose: 100 mg Documented by: Lidocaine HCl (Lidocaine Viscous 2% 15 Ml Udc) 5 ml MM Q4H PRN PRN Reason: Mouth Sore Pain Last Admin: 05/21/21 06:33 Dose: 5 ml Documented by: Mineral Oil (Min Oil/Dimethicon/Coconut Oil 92 Gm Tube) 1 applic TOP PRN PRN PRN Reason: Skin Care Last Admin: 05/19/21 18:45 Dose: 1 applic Documented by: Non-Formulary Medication (Eszopiclone [Lunesta]) 3 mg PO QPM [facility] Ondansetron HCl (Ondansetron 4 Mg/2 Ml Vial) 4 mg IVP Q6HR PRN PRN Reason: Nausea / Vomiting Oxycodone HCl (Oxycodone 5 Mg Tablet) 5 mg PO Q4HR PRN PRN Reason: PAIN Pantoprazole Sodium (Pantoprazole 40 Mg Tablet) 40 mg PO QDAC [facility] Last Admin: 05/29/21 06:59 Dose: 40 mg Documented by: Desvenlafaxine Succinate [Pristiq Er] 50 Mg Tabs 1 each PO DAILY [facility] Last Admin: 05/29/21 08:48 Dose: 1 each Documented by: Pregabalin (Pregabalin 100 Mg Capsule) 100 mg PO DAILY [facility] Last Admin: 05/29/21 08:46 Dose: 100 mg Documented by: Prochlorperazine Edisylate (Prochlorperazine 10 Mg/2 Ml Vial) 10 mg IVP Q6HR PRN PRN Reason: Nausea / Vomiting Saccharomyces Boulardii (Saccharomyces Boulardii 250 Mg Capsule) 500 mg PO BIDWM [facility] Last Admin: 05/29/21 08:46 Dose: 500 mg Documented by: Sodium Chloride (Sodium Chloride Flush 0.9% 10 Ml Syringe) 10 ml IVP 0100,0900,1700 [facility] Last Admin: 05/29/21 08:57 Dose: 10 ml Documented by: Sodium Chloride (Sodium Chloride Flush 0.9% 10 Ml Syringe) 10 ml IVP PRN PRN PRN Reason: NEEDED PER PROVIDER ORDERS Last Admin: 05/24/21 06:31 Dose: 10 ml Documented by: Sodium Chloride (Sodium Chloride Flush 0.9% 10 Ml Syringe) 20 ml IVP PRN PRN PRN Reason: After Blood Draw Last Admin: 05/24/21 06:31 Dose: 20 ml Documented by: Valacyclovir HCl (Valacyclovir 500 Mg Tablet) 500 mg PO BID [facility] Last Admin: 05/29/21 08:46 Dose: 500 mg Documented by: ARIPiprazole [Aripiprazole] 10 mg PO DAILY 05/18/21 Acyclovir [Zovirax] 1 applic TOP 5XD PRN 05/18/21 Amoxicillin 2,000 mg PO ONCE PRN 05/18/21 Cholecalciferol [Vitamin D3] 50 mcg PO DAILY 05/18/21 Clobetasol Propionate [Temovate] 1 applic TP BID PRN 05/18/21 Desvenlafaxine Succinate [Pristiq ER] 50 mg PO DAILY 05/18/21 Diclofenac Sodium [Voltaren Arthritis Pain] 2 gm TP QID PRN 05/18/21 Docosanol [Abreva] 1 applic TP ONCE PRN 05/18/21 Esomeprazole Magnesium [Nexium] 40 mg PO DAILY 05/18/21 Eszopiclone [Lunesta] 3 mg PO QPM 05/18/21 Hydroxychloroquine [Plaquenil] 200 mg PO BIDWM 05/18/21 Loratadine [Claritin] 10 mg PO DAILY 05/18/21 Losartan [Cozaar] 50 mg PO DAILY 05/18/21 Loteprednol Etabonate 1 drops EACHEYE BID PRN 05/18/21 Loteprednol Etabonate [Lotemax] 1 applic EACHEYE DAILY PRN 05/18/21 Multivitamin/Iron/Folic Acid [Centrum Women Tablet] 1 each PO DAILY 05/18/21 Oxybutynin [Ditropan] 5 mg PO DAILY 05/18/21 Pilocarpine HCl [Salagen] 5 mg PO QID 05/18/21 Pregabalin [Lyrica] 200 mg PO DAILY 05/18/21 Simvastatin [Zocor] 10 mg PO QPM 05/18/21 Triamcinolone 0.5% Cream [Kenalog 0.5% Cream] 1 applic TOP TID PRN 05/18/21 Valacyclovir HCl [Valtrex] 500 mg PO DAILY PRN 05/18/21 lamoTRIgine [LaMICtal] 100 mg PO DAILY 05/18/21 traMADol [Ultram] 50 mg PO Q4-6H PRN 05/18/21 Objective - Vital Signs/Intake & Output Reviewed Vital Signs: Yes Vital Signs: Vital Signs x48h Temp Pulse Resp BP Pulse Ox 05/29/21 05:00 36.7 C 81 14 142/84 H 95 Intake & Output: Intake & Output 05/26/21 05/27/21 05/28/21 05/29/21 23:59 23:59 23:59 23:59 Intake Total 1210 2010 1500 200 Output Total 1525 1900 1250 400 Balance -315 110 250 -200 - Objective General Appearance: positive: No acute distress, Alert Eyes Bilateral: positive: Normal inspection, Conjunctivae nml ENT: positive: ENT inspection nml Neck: positive: Nml inspection Respiratory: positive: No respiratory distress. negative: Wheezes, Rales Cardiovascular: positive: Regular rate & rhythm. negative: Tachycardia Abdomen: positive: Non-tender, No distention. negative: Tenderness Skin: positive: Warm, Dry Extremities: positive: Pedal edema (+2 pitting edema in bilateral lower extremities) Neurologic/Psychiatric: positive: Motor nml. negative: Disoriented to person, Disoriented to place, Disoriented to time - Lab Results Fish Bones: 05/29/21 04:35 05/29/21 04:35 Other Labs: Lab Results x24hrs 05/29/21 05/29/21 05/28/21 Range/Units 04:35 04:35 19:00 WBC 5.0 (4.8-10.8) x10^3/uL RBC 3.20 L (4.20-5.40) 10^6/uL Hgb 9.5 L (12.0-16.0) g/dL Hct 29.5 L (37.0-47.0) % MCV 92.2 (81.0-99.0) fL MCH 29.7 (27.0-31.0) pg MCHC 32.2 (32.0-36.0) g/dL RDW 15.8 H (12.0-15.0) % Plt Count 238 (130-450) 10^3/uL MPV 9.9 (7.9-10.8) fL Neut # (Auto) 3.5 (1.5-6.6) 10^3/uL Lymph # (Auto) 0.6 L (1.5-3.5) 10^3/uL [place] # (Auto) 0.3 (0.0-1.0) 10^3/uL Eos # (Auto) 0.3 (0.0-0.7) 10^3/uL Baso # (Auto) 0.0 (0.0-0.1) 10^3/uL Absolute Nucleated RBC 0.00 x10^3/uL Nucleated RBC % 0.0 /100WBC Sodium 143 142 (135-145) mmol/L Potassium 4.0 3.9 (3.5-5.0) mmol/L Chloride 114 H 112 H (101-111) mmol/L Carbon Dioxide 18 L 19 L (21-32) mmol/L Anion Gap 11.0 11.0 (6-13) BUN 31 H 32 H (6-20) mg/dL Creatinine 5.0 H 5.1 H (0.4-1.0) mg/dL Estimated GFR (MDRD) 9 L 8 L (>89) Glucose 88 121 H (70-100) mg/dL Calcium 8.2 L 8.3 L (8.5-10.3) mg/dL Phosphorus 6.5 H (2.5-4.6) mg/dL Magnesium 2.1 (1.7-2.8) mg/dL ABX Reporting Has patient been on IV antibiotics over the past 48 hours?: No Sepsis Event Note (H) - Evaluation Current Stage of Sepsis: Resolved Possible source of Sepsis: positive: GI tract/intra-abdominal - Sepsis Criteria Sepsis Criteria: WBC count greater than 12,000 or less than 4000, [place] [place]ION: altered consciousness (unrelated to primary neuro pathology), SBP drop more than 40mHg, SBP less than 90 mmHg, Renal: urine output less than 0.5ml/kg/hr for 2 hours or creatinine gr Assessment/Plan - Problem List (1) Acute renal failure Impression: Her acute kidney injury secondary to ATN due to hypotension from sepsis. It appears her creatinine has plateaued and has been slowly decreasing each day. She has also had over 1.5 L of urine output each day. I am hopeful that she is beginning to show signs of recovery given the slight decline in her creatinine. Although she does have improvement, she is not quite ready for discharge yet. I would like to see her creatinine improved by 0.4-0.5 a day over a two day pe riod before considering discharge. She has follow-up set up next Monday in [place] with nephrology. We will continue to avoid nephrotoxins and further hypotension. Qualifiers: Acute renal failure type: with acute tubular necrosis Qualified Code(s): N17.0 - Acute kidney failure with tubular necrosis (2) C. difficile colitis Impression: She completed 10 days of oral vancomycin. Her diarrhea has resolved. (3) Altered mental status Impression: This was likely secondary to medication toxicity in this patient who had renal failure. We reduced her dose of Lyrica and her mentation is now back to baseline. We will continue the reduced dose of Lyrica until her renal function recovers. Qualifiers: Altered mental status type: disorientation Qualified Code(s): R41.0 - Disorientation, unspecified (4) Hypernatremia Impression: This resolved with increased free water intake. (5) Bacteremia Impression: Initial blood cultures from May 18 grew Staph epidermidis in the anaerobic and aerobic bottle from the same set. The other blood culture has been negative to date. We suspect this is likely contaminant and the IV vancomycin was discontinued. (6) Lower extremity edema Impression: She continues to have lower extremity edema secondary to the IV fluid she received for her acute renal failure. Her echocardiogram did not suggest heart failure. Given she shows evidence of renal recovery suspect her edema will begin to improve over the next few weeks as her urine output increases. Continue with leg elevation. (7) Depression Impression: Stable. We are continuing her home Abilify and Pristiq. (8) Neuropathy Impression: Stable. We will continue her lower dose of Lyrica for the time being. (9) Septic shock Impression: This was secondary to the C. difficile colitis. This is now resolved.
[2021-05-29] MEDS: PREGABALIN 100 MG CAPSULE PO SCH (08:46)
[2021-05-29] MEDS: SACCHAROMYCES BOULARDII 250 MG CAPSULE PO SCH ×2 (08:46→17:04)
[2021-05-29] MEDS: valACYclovir 500 MG TABLET PO SCH ×2 (08:46→22:02)
[2021-05-29] MEDS: ARIPiprazole 5 MG TABLET PO SCH (08:47)
[2021-05-29] MEDS: DESVENLAFAXINE SUCCINATE 50 MG PO SCH (08:48)
[2021-05-29] MEDS: lamoTRIgine 100 MG TABLET PO SCH (08:48)
[2021-05-29] MEDS: HEPARIN 5,000 UNIT/ML VIAL SUBQ SCH ×2 (08:53→22:02)
[2021-05-29] MEDS: SODIUM CHLORIDE FLUSH 0.9% 10 ML SYRINGE IVP SCH ×2 (08:57→17:05)
[2021-05-29] MEDS: HYDROXYCHLOROQUINE 200 MG TABLET PO SCH (17:05)
[2021-05-29 17:55] LABS: CALCIUM 8.5 mg/dL (8.5-10.3)
[2021-05-29] MEDS: ATORVASTATIN 10 MG TABLET PO SCH (22:00)
[2021-05-29] MEDS: ZOLPIDEM 5 MG TABLET PO SCH (22:06)
[2021-05-30 04:46] LABS: BASOPHILS # (AUTO) 0.1 10^3/uL (0.0-0.1); BASOPHILS % (AUTO) 1.1 %; EOSINOPHILS # (AUTO) 0.2 10^3/uL (0.0-0.7); EOSINOPHILS % (AUTO) 5.2 %; HCT - HEMATOCRIT 28.8 % (37.0-47.0); HGB - HEMOGLOBIN 9.3 g/dL (12.0-16.0); LYMPHOCYTES # (AUTO) 0.6 10^3/uL (1.5-3.5); LYMPHOCYTES % (AUTO) 13.9 %; MEAN CORPUSCULAR HEMOGLOBIN 29.8 pg (27.0-31.0); MEAN CORPUSCULAR HGB CONC 32.3 g/dL (32.0-36.0); MEAN CORPUSCULAR VOLUME 92.3 fL (81.0-99.0); MEAN PLATELET VOLUME 9.7 fL (7.9-10.8); MONOCYTES # (AUTO) 0.3 10^3/uL (0.0-1.0); MONOCYTES % (AUTO) 6.5 %; NEUTROPHILS # (AUTO) 3.2 10^3/uL (1.5-6.6); PLT - PLATELET COUNT 208 10^3/uL (130-450); RED BLOOD COUNT 3.12 10^6/uL (4.20-5.40); RED CELL DISTRIBUTION WIDTH 15.8 % (12.0-15.0); WHITE BLOOD COUNT 4.6 x10^3/uL (4.8-10.8)
[2021-05-30 05:18] LABS: CALCIUM 8.3 mg/dL (8.5-10.3); MAGNESIUM 2.2 mg/dL (1.7-2.8); PHOSPHORUS 6.9 mg/dL (2.5-4.6); POTASSIUM 4.1 mmol/L (3.5-5.0)
[2021-05-30] MEDS: SODIUM CHLORIDE FLUSH 0.9% 10 ML SYRINGE IVP SCH ×3 (07:00→17:23)
[2021-05-30] MEDS: PANTOPRAZOLE 40 MG TABLET PO SCH (07:00)
[2021-05-30] MEDS: lamoTRIgine 100 MG TABLET PO SCH (08:41)
[2021-05-30] MEDS: PREGABALIN 100 MG CAPSULE PO SCH (08:41)
[2021-05-30] MEDS: SACCHAROMYCES BOULARDII 250 MG CAPSULE PO SCH ×2 (08:41→17:22)
[2021-05-30] MEDS: HYDROXYCHLOROQUINE 200 MG TABLET PO SCH ×2 (08:41→17:22)
[2021-05-30] MEDS: ARIPiprazole 5 MG TABLET PO SCH (08:42)
[2021-05-30] MEDS: HEPARIN 5,000 UNIT/ML VIAL SUBQ SCH ×2 (08:47→21:05)
[2021-05-30] MEDS: DESVENLAFAXINE SUCCINATE 50 MG PO SCH (08:52)
[2021-05-30] MEDS: valACYclovir 500 MG TABLET PO SCH (09:09)
[2021-05-30] MEDS ORDERED: FUROSEMIDE 40 MG/4 ML VIAL IVP STA (10:37)
--- NOTE | 2021-05-30 10:42 | PROVIDER PROGRESS NOTE ---
Subjective - Prog Note Date Prog Note Date: 05/30/21 - Subjective Subjective: She continues to report feeling well. She has rotated that she is still here and looking forward to going home as soon as possible. She continues to have good urine output. She feels like her lower extremity edema is slightly improved. No dyspnea. Current Medications - Current Medications Current Medications: Active Medications Acetaminophen (Acetaminophen 325 Mg Tablet) 650 mg PO Q4HR PRN PRN Reason: Pain 1 to 4 Last Admin: 05/18/21 20:08 Dose: 650 mg Documented by: Aripiprazole (Aripiprazole 5 Mg Tablet) 10 mg PO DAILY [facility] Last Admin: 05/30/21 08:42 Dose: 10 mg Documented by: Atorvastatin Calcium (Atorvastatin 10 Mg Tablet) 10 mg PO QPM [facility] Last Admin: 05/29/21 22:00 Dose: 10 mg Documented by: Heparin Sodium (Porcine) (Heparin 5,000 Unit/Ml Vial) 5,000 unit SUBQ BID [facility] Last Admin: 05/30/21 08:47 Dose: 5,000 unit Documented by: Hydroxychloroquine Sulfate (Hydroxychloroquine 200 Mg Tablet) 200 mg PO BIDWM [facility] Last Admin: 05/30/21 08:41 Dose: 200 mg Documented by: Sodium Chloride (Normal Saline 0.9%) 500 mls @ 20 mls/hr IV Q24H PRN PRN Reason: TKO RATE Lamotrigine (Lamotrigine 100 Mg Tablet) 100 mg PO DAILY [facility] Last Admin: 05/30/21 08:41 Dose: 100 mg Documented by: Lidocaine HCl (Lidocaine Viscous 2% 15 Ml Udc) 5 ml MM Q4H PRN PRN Reason: Mouth Sore Pain Last Admin: 05/21/21 06:33 Dose: 5 ml Documented by: Mineral Oil (Min Oil/Dimethicon/Coconut Oil 92 Gm Tube) 1 applic TOP PRN PRN PRN Reason: Skin Care Last Admin: 05/19/21 18:45 Dose: 1 applic Documented by: Ondansetron HCl (Ondansetron 4 Mg/2 Ml Vial) 4 mg IVP Q6HR PRN PRN Reason: Nausea / Vomiting Oxycodone HCl (Oxycodone 5 Mg Tablet) 5 mg PO Q4HR PRN PRN Reason: PAIN Last Admin: 05/29/21 22:00 Dose: 5 mg Documented by: Pantoprazole Sodium (Pantoprazole 40 Mg Tablet) 40 mg PO QDAC [facility] Last Admin: 05/30/21 07:00 Dose: 40 mg Documented by: Desvenlafaxine Succinate [Pristiq Er] 50 Mg Tabs 1 each PO DAILY [facility] Last Admin: 05/30/21 08:52 Dose: 1 each Documented by: Pregabalin (Pregabalin 100 Mg Capsule) 100 mg PO DAILY [facility] Last Admin: 05/30/21 08:41 Dose: 100 mg Documented by: Prochlorperazine Edisylate (Prochlorperazine 10 Mg/2 Ml Vial) 10 mg IVP Q6HR PRN PRN Reason: Nausea / Vomiting Saccharomyces Boulardii (Saccharomyces Boulardii 250 Mg Capsule) 500 mg PO BIDWM [facility] Last Admin: 05/30/21 08:41 Dose: 500 mg Documented by: Sodium Chloride (Sodium Chloride Flush 0.9% 10 Ml Syringe) 10 ml IVP 0100,0900,1700 [facility] Last Admin: 05/30/21 07:00 Dose: 10 ml Documented by: Sodium Chloride (Sodium Chloride Flush 0.9% 10 Ml Syringe) 10 ml IVP PRN PRN PRN Reason: NEEDED PER PROVIDER ORDERS Last Admin: 05/24/21 06:31 Dose: 10 ml Documented by: Sodium Chloride (Sodium Chloride Flush 0.9% 10 Ml Syringe) 20 ml IVP PRN PRN PRN Reason: After Blood Draw Last Admin: 05/24/21 06:31 Dose: 20 ml Documented by: Zolpidem Tartrate (Zolpidem 5 Mg Tablet) 10 mg PO QPM [facility] Last Admin: 05/29/21 22:06 Dose: Not Given Documented by: ARIPiprazole [Aripiprazole] 10 mg PO DAILY 05/18/21 Acyclovir [Zovirax] 1 applic TOP 5XD PRN 05/18/21 Amoxicillin 2,000 mg PO ONCE PRN 05/18/21 Cholecalciferol [Vitamin D3] 50 mcg PO DAILY 05/18/21 Clobetasol Propionate [Temovate] 1 applic TP BID PRN 05/18/21 Desvenlafaxine Succinate [Pristiq ER] 50 mg PO DAILY 05/18/21 Diclofenac Sodium [Voltaren Arthritis Pain] 2 gm TP QID PRN 05/18/21 Docosanol [Abreva] 1 applic TP ONCE PRN 05/18/21 Esomeprazole Magnesium [Nexium] 40 mg PO DAILY 05/18/21 Eszopiclone [Lunesta] 3 mg PO QPM 05/18/21 Hydroxychloroquine [Plaquenil] 200 mg PO BIDWM 05/18/21 Loratadine [Claritin] 10 mg PO DAILY 05/18/21 Losartan [Cozaar] 50 mg PO DAILY 05/18/21 Loteprednol Etabonate 1 drops EACHEYE BID PRN 05/18/21 Loteprednol Etabonate [Lotemax] 1 applic EACHEYE DAILY PRN 05/18/21 Multivitamin/Iron/Folic Acid [Centrum Women Tablet] 1 each PO DAILY 05/18/21 Oxybutynin [Ditropan] 5 mg PO DAILY 05/18/21 Pilocarpine HCl [Salagen] 5 mg PO QID 05/18/21 Pregabalin [Lyrica] 200 mg PO DAILY 05/18/21 Simvastatin [Zocor] 10 mg PO QPM 05/18/21 Triamcinolone 0.5% Cream [Kenalog 0.5% Cream] 1 applic TOP TID PRN 05/18/21 Valacyclovir HCl [Valtrex] 500 mg PO DAILY PRN 05/18/21 lamoTRIgine [LaMICtal] 100 mg PO DAILY 05/18/21 traMADol [Ultram] 50 mg PO Q4-6H PRN 05/18/21 Objective - Vital Signs/Intake & Output Reviewed Vital Signs: Yes Vital Signs: Vital Signs x48h Temp Pulse Resp BP Pulse Ox 05/30/21 08:08 36.4 C L 87 20 166/101 H 94 05/30/21 06:00 36.7 C 89 18 148/81 H 94 Intake & Output: Intake & Output 05/27/21 05/28/21 05/29/21 05/30/21 23:59 23:59 23:59 23:59 Intake Total 2009 1500 2200 730 Output Total 1900 1250 2175 400 Balance 110 250 25 330 - Objective General Appearance: positive: No acute distress, Alert Eyes Bilateral: positive: Normal inspection, Conjunctivae nml ENT: positive: ENT inspection nml Neck: positive: Nml inspection Respiratory: positive: No respiratory distress. negative: Wheezes, Rales Cardiovascular: positive: Regular rate & rhythm. negative: Tachycardia Abdomen: positive: Non-tender, No distention. negative: Tenderness Skin: positive: Warm, Dry Extremities: positive: Pedal edema (+2 pitting edema in bilateral lower extremities.) Neurologic/Psychiatric: negative: Disoriented to person, Disoriented to place - Lab Results Fish Bones: 05/30/21 04:35 05/30/21 04:35 Other Labs: Lab Results x24hrs 05/30/21 05/30/21 05/29/21 Range/Units 04:35 04:35 17:43 WBC 4.6 L (4.8-10.8) x10^3/uL RBC 3.12 L (4.20-5.40) 10^6/uL Hgb 9.3 L (12.0-16.0) g/dL Hct 28.8 L (37.0-47.0) % MCV 92.3 (81.0-99.0) fL MCH 29.8 (27.0-31.0) pg MCHC 32.3 (32.0-36.0) g/dL RDW 15.8 H (12.0-15.0) % Plt Count 208 (130-450) 10^3/uL MPV 9.7 (7.9-10.8) fL Neut # (Auto) 3.2 (1.5-6.6) 10^3/uL Lymph # (Auto) 0.6 L (1.5-3.5) 10^3/uL [place] # (Auto) 0.3 (0.0-1.0) 10^3/uL Eos # (Auto) 0.2 (0.0-0.7) 10^3/uL Baso # (Auto) 0.1 (0.0-0.1) 10^3/uL Absolute Nucleated RBC 0.00 x10^3/uL Nucleated RBC % 0.0 /100WBC Sodium 143 146 H (135-145) mmol/L Potassium 4.1 4.0 (3.5-5.0) mmol/L Chloride 113 H 116 H (101-111) mmol/L Carbon Dioxide 20 L 21 (21-32) mmol/L Anion Gap 10.0 9.0 (6-13) BUN 33 H 32 H (6-20) mg/dL Creatinine 5.0 H 5.0 H (0.4-1.0) mg/dL Estimated GFR (MDRD) 9 L 9 L (>89) Glucose 77 103 H (70-100) mg/dL Calcium 8.3 L 8.5 (8.5-10.3) mg/dL Phosphorus 6.9 H (2.5-4.6) mg/dL Magnesium 2.2 (1.7-2.8) mg/dL Sepsis Event Note (H) - Evaluation Current Stage of Sepsis: Resolved Possible source of Sepsis: positive: GI tract/intra-abdominal - Sepsis Criteria Sepsis Criteria: WBC count greater than 12,000 or less than 4000, [place]: altered consciousness (unrelated to primary neuro pathology), SBP drop more than 40mHg, SBP less than 90 mmHg, Renal: urine output less than 0.5ml/kg/hr for 2 hours or creatinine gr Assessment/Plan - Problem List (1) Acute renal failure Impression: She has acute kidney injury secondary to ATN due to hypotension associted with sepsis. Her creatinine today is still 5.0. Her urine output is over 2 L a day. She has been slow to improve but it is not uncommon for the creatinine to lag behind her urine output. I spoke with nephrology today at [facility] who agreed that we just need to wait this out a little bit longer and that the creatinine will lag behind the urine output. They did recommend Lasix to help manage her volume status. She is not ready to be discharged quite yet. I would like to see her renal function make a significant improvement evidenced by decreasing creatinine before discharging her. This was discussed with the family again at bedside. Qualifiers: Acute renal failure type: with acute tubular necrosis Qualified Code(s): N17.0 - Acute kidney failure with tubular necrosis (2) Lower extremity edema Impression: Her edema is slightly improved and her weight is actually down 4 kg over the past few days but she is still up 10 kg since admission. I spoke with nephr ology today and they feel given a dose of Lasix would be reasonable to help with her volume status and so we will give her a dose of 40 mg IV Lasix today. (3) Altered mental status Impression: She is still intermittently disoriented to the month but otherwise is alert and oriented and able to provide a history. We will continue the lowered dose of Lyrica and I suspect this was the cause of her disorientation given the renal failure. Qualifiers: Altered mental status type: disorientation Qualified Code(s): R41.0 - Disorientation, unspecified (4) Bacteremia Impression: Initial blood cultures from May 18 grew Staph epidermidis in the anaerobic and aerobic bottle from the same set. The other blood culture has been negative to date. We suspect this is likely contaminant and the IV vancomycin was discontinued. (5) Depression Impression: Stable. We are continuing her home Abilify and Pristiq. (6) Neuropathy Impression: Stable. We will continue her lower dose of Lyrica for the time being. (7) Septic shock Impression: This was secondary to the C. difficile colitis. This is now resolved. (8) C. difficile colitis Impression: Resolved. She completed 10 days of oral vancomycin.
[2021-05-30] MEDS: ATORVASTATIN 10 MG TABLET PO SCH (21:05)
[2021-05-30] MEDS: ZOLPIDEM 5 MG TABLET PO SCH (21:06)
[2021-05-31] MEDS: SODIUM CHLORIDE FLUSH 0.9% 10 ML SYRINGE IVP SCH ×3 (02:28→17:12)
[2021-05-31] MEDS: SODIUM CHLORIDE FLUSH 0.9% 10 ML SYRINGE IVP PRN (04:47)
[2021-05-31 04:53] LABS: EOSINOPHILS # (AUTO) 0.2 10^3/uL (0.0-0.7); EOSINOPHILS % (AUTO) 5.6 %; HCT - HEMATOCRIT 27.5 % (37.0-47.0); LYMPHOCYTES # (AUTO) 0.6 10^3/uL (1.5-3.5); LYMPHOCYTES % (AUTO) 14.8 %; MEAN CORPUSCULAR HEMOGLOBIN 29.5 pg (27.0-31.0); MEAN CORPUSCULAR HGB CONC 32.7 g/dL (32.0-36.0); MEAN CORPUSCULAR VOLUME 90.2 fL (81.0-99.0); MEAN PLATELET VOLUME 9.7 fL (7.9-10.8); MONOCYTES # (AUTO) 0.3 10^3/uL (0.0-1.0); MONOCYTES % (AUTO) 7.6 %; NEUTROPHILS # (AUTO) 2.7 10^3/uL (1.5-6.6); NEUTROPHILS % (AUTO) 68.7 %; PLT - PLATELET COUNT 171 10^3/uL (130-450); RED BLOOD COUNT 3.05 10^6/uL (4.20-5.40); WHITE BLOOD COUNT 3.9 x10^3/uL (4.8-10.8)
[2021-05-31 05:04] LABS: CALCIUM 8.2 mg/dL (8.5-10.3); MAGNESIUM 2.1 mg/dL (1.7-2.8); PHOSPHORUS 6.6 mg/dL (2.5-4.6); POTASSIUM 3.8 mmol/L (3.5-5.0)
[2021-05-31] MEDS: PANTOPRAZOLE 40 MG TABLET PO SCH (06:41)
[2021-05-31] MEDS: PREGABALIN 100 MG CAPSULE PO SCH (08:43)
[2021-05-31] MEDS: ARIPiprazole 5 MG TABLET PO SCH (08:43)
[2021-05-31] MEDS: SACCHAROMYCES BOULARDII 250 MG CAPSULE PO SCH ×2 (08:43→17:11)
[2021-05-31] MEDS: lamoTRIgine 100 MG TABLET PO SCH (08:43)
[2021-05-31] MEDS: HYDROXYCHLOROQUINE 200 MG TABLET PO SCH ×2 (08:43→17:11)
[2021-05-31] MEDS: HEPARIN 5,000 UNIT/ML VIAL SUBQ SCH ×2 (08:44→21:31)
[2021-05-31] MEDS: DESVENLAFAXINE SUCCINATE 50 MG PO SCH (08:45)
--- NOTE | 2021-05-31 09:24 | PROVIDER PROGRESS NOTE ---
Subjective - Prog Note Date Prog Note Date: 05/31/21 - Subjective Subjective: She really wants to go home at this point. She is frustrated with being here. She feels well denies any chest pain, dyspnea, diarrhea. She also feels like her lower extremity edema is improving. Current Medications - Current Medications Current Medications: Active Medications Acetaminophen (Acetaminophen 325 Mg Tablet) 650 mg PO Q4HR PRN PRN Reason: Pain 1 to 4 Last Admin: 05/18/21 20:08 Dose: 650 mg Documented by: Aripiprazole (Aripiprazole 5 Mg Tablet) 10 mg PO DAILY [facility] Last Admin: 05/31/21 08:43 Dose: 10 mg Documented by: Atorvastatin Calcium (Atorvastatin 10 Mg Tablet) 10 mg PO QPM [facility] Last Admin: 05/30/21 21:05 Dose: 10 mg Documented by: Heparin Sodium (Porcine) (Heparin 5,000 Unit/Ml Vial) 5,000 unit SUBQ BID [facility] Last Admin: 05/31/21 08:44 Dose: 5,000 unit Documented by: Hydroxychloroquine Sulfate (Hydroxychloroquine 200 Mg Tablet) 200 mg PO BIDWM [facility] Last Admin: 05/31/21 08:43 Dose: 200 mg Documented by: Sodium Chloride (Normal Saline 0.9%) 500 mls @ 20 mls/hr IV Q24H PRN PRN Reason: TKO RATE Lamotrigine (Lamotrigine 100 Mg Tablet) 100 mg PO DAILY [facility] Last Admin: 05/31/21 08:43 Dose: 100 mg Documented by: Lidocaine HCl (Lidocaine Viscous 2% 15 Ml Udc) 5 ml MM Q4H PRN PRN Reason: Mouth Sore Pain Last Admin: 05/21/21 06:33 Dose: 5 ml Documented by: Mineral Oil (Min Oil/Dimethicon/Coconut Oil 92 Gm Tube) 1 applic TOP PRN PRN PRN Reason: Skin Care Last Admin: 05/19/21 18:45 Dose: 1 applic Documented by: Ondansetron HCl (Ondansetron 4 Mg/2 Ml Vial) 4 mg IVP Q6HR PRN PRN Reason: Nausea / Vomiting Oxycodone HCl (Oxycodone 5 Mg Tablet) 5 mg PO Q4HR PRN PRN Reason: PAIN Last Admin: 05/29/21 22:00 Dose: 5 mg Documented by: Pantoprazole Sodium (Pantoprazole 40 Mg Tablet) 40 mg PO QDAC [facility] Last Admin: 05/31/21 06:41 Dose: 40 mg Documented by: Desvenlafaxine Succinate [Pristiq Er] 50 Mg Tabs 1 each PO DAILY [facility] Last Admin: 05/31/21 08:45 Dose: 1 each Documented by: Pregabalin (Pregabalin 100 Mg Capsule) 100 mg PO DAILY [facility] Last Admin: 05/31/21 08:43 Dose: 100 mg Documented by: Prochlorperazine Edisylate (Prochlorperazine 10 Mg/2 Ml Vial) 10 mg IVP Q6HR PRN PRN Reason: Nausea / Vomiting Saccharomyces Boulardii (Saccharomyces Boulardii 250 Mg Capsule) 500 mg PO BIDWM [facility] Last Admin: 05/31/21 08:43 Dose: 500 mg Documented by: Sodium Chloride (Sodium Chloride Flush 0.9% 10 Ml Syringe) 10 ml IVP 0100,0900,1700 [facility] Last Admin: 05/31/21 08:44 Dose: 10 ml Documented by: Sodium Chloride (Sodium Chloride Flush 0.9% 10 Ml Syringe) 10 ml IVP PRN PRN PRN Reason: NEEDED PER PROVIDER ORDERS Last Admin: 05/31/21 04:47 Dose: 10 ml Documented by: Sodium Chloride (Sodium Chloride Flush 0.9% 10 Ml Syringe) 20 ml IVP PRN PRN PRN Reason: After Blood Draw Last Admin: 05/24/21 06:31 Dose: 20 ml Documented by: Zolpidem Tartrate (Zolpidem 5 Mg Tablet) 10 mg PO QPM [facility] Last Admin: 05/30/21 21:06 Dose: 10 mg Documented by: ARIPiprazole [Aripiprazole] 10 mg PO DAILY 05/18/21 Acyclovir [Zovirax] 1 applic TOP 5XD PRN 05/18/21 Amoxicillin 2,000 mg PO ONCE PRN 05/18/21 Cholecalciferol [Vitamin D3] 50 mcg PO DAILY 05/18/21 Clobetasol Propionate [Temovate] 1 applic TP BID PRN 05/18/21 Desvenlafaxine Succinate [Pristiq ER] 50 mg PO DAILY 05/18/21 Diclofenac Sodium [Voltaren Arthritis Pain] 2 gm TP QID PRN 05/18/21 Docosanol [Abreva] 1 applic TP ONCE PRN 05/18/21 Esomeprazole Magnesium [Nexium] 40 mg PO DAILY 05/18/21 Eszopiclone [Lunesta] 3 mg PO QPM 05/18/21 Hydroxychloroquine [Plaquenil] 200 mg PO BIDWM 05/18/21 Loratadine [Claritin] 10 mg PO DAILY 05/18/21 Losartan [Cozaar] 50 mg PO DAILY 05/18/21 Loteprednol Etabonate 1 drops EACHEYE BID PRN 05/18/21 Loteprednol Etabonate [Lotemax] 1 applic EACHEYE DAILY PRN 05/18/21 Multivitamin/Iron/Folic Acid [Centrum Women Tablet] 1 each PO DAILY 05/18/21 Oxybutynin [Ditropan] 5 mg PO DAILY 05/18/21 Pilocarpine HCl [Salagen] 5 mg PO QID 05/18/21 Pregabalin [Lyrica] 200 mg PO DAILY 05/18/21 Simvastatin [Zocor] 10 mg PO QPM 05/18/21 Triamcinolone 0.5% Cream [Kenalog 0.5% Cream] 1 applic TOP TID PRN 05/18/21 Valacyclovir HCl [Valtrex] 500 mg PO DAILY PRN 05/18/21 lamoTRIgine [LaMICtal] 100 mg PO DAILY 05/18/21 traMADol [Ultram] 50 mg PO Q4-6H PRN 05/18/21 Objective - Vital Signs/Intake & Output Reviewed Vital Signs: Yes Vital Signs: Vital Signs x48h Temp Pulse Resp BP Pulse Ox 05/31/21 08:52 83 18 143/82 H 94 05/31/21 04:45 36.6 C 79 16 126/75 92 Intake & Output: Intake & Output 05/28/21 05/29/21 05/30/21 05/31/21 23:59 23:59 23:59 23:59 Intake Total 1500 2200 1220 600 Output Total 1250 2175 2400 875 Balance 250 00 -1570 -287 - Objective General Appearance: positive: No acute distress, Alert Eyes Bilateral: positive: Normal inspection, Conjunctivae nml ENT: positive: ENT inspection nml Neck: positive: Nml inspection Respiratory: positive: No respiratory distress Cardiovascular: positive: Regular rate & rhythm Skin: positive: Warm, Dry Extremities: positive: Pedal edema (+1 to +2 pitting edema in bilateral lower extremities) Neurologic/Psychiatric: negative: Disoriented to person, Disoriented to place, Disoriented to time - Lab Results Fish Bones: 05/31/21 04:44 05/31/21 04:44 Other Labs: Lab Results x24hrs 05/31/21 05/31/21 Range/Units 04:44 04:44 WBC 3.9 L (4.8-10.8) x10^3/uL RBC 3.05 L (4.20-5.40) 10^6/uL Hgb 9.0 L (12.0-16.0) g/dL Hct 27.5 L (37.0-47.0) % MCV 90.2 (81.0-99.0) fL MCH 29.5 (27.0-31.0) pg MCHC 32.7 (32.0-36.0) g/dL RDW 15.0 (12.0-15.0) % Plt Count 171 (130-450) 10^3/uL MPV 9.7 (7.9-10.8) fL Neut # (Auto) 2.7 (1.5-6.6) 10^3/uL Lymph # (Auto) 0.6 L (1.5-3.5) 10^3/uL Dickey # (Auto) 0.3 (0.0-1.0) 10^3/uL Eos # (Auto) 0.2 (0.0-0.7) 10^3/uL Baso # (Auto) 0.0 (0.0-0.1) 10^3/uL Absolute Nucleated RBC 0.00 x10^3/uL Nucleated RBC % 0.0 /100WBC Sodium 141 (135-145) mmol/L Potassium 3.8 (3.5-5.0) mmol/L Chloride 110 (101-111) mmol/L Carbon Dioxide 22 (21-32) mmol/L Anion Gap 9.0 (6-13) BUN 32 H (6-20) mg/dL Creatinine 5.0 H (0.4-1.0) mg/dL Estimated GFR (MDRD) 9 L (>89) Glucose 77 (70-100) mg/dL Calcium 8.2 L (8.5-10.3) mg/dL Phosphorus 6.6 H (2.5-4.6) mg/dL Magnesium 2.1 (1.7-2.8) mg/dL ABX Reporting Has patient been on IV antibiotics over the past 48 hours?: No Sepsis Event Note (H) - Evaluation Current Stage of Sepsis: Resolved Possible source of Sepsis: positive: GI tract/intra-abdominal - Sepsis Criteria Sepsis Criteria: WBC count greater than 12,000 or less than 4000, ADMINISTRATIVE SUPERVISOR: altered consciousness (unrelated to primary neuro pathology), SBP drop more than 40mHg, SBP less than 90 mmHg, Renal: urine output less than 0.5ml/kg/hr for 2 hours or creatinine gr Assessment/Plan - Problem List (1) Acute renal failure Impression: She has acute renal failure secondary to ATN. Her creatinine today still remains at 5.0. She has had excellent urine output each day and yesterday she made 2 and half liters and responded well to IV Lasix. Her electrolytes remain acceptable. Her bicarb is now within normal limits and her phosphorus is decreasing. I did speak with nephrology yesterday and they felt that we should see a downward trend in her creatinine before discharging her home. They did state that the creatinine can lag behind other evidence of renal recovery such as increased urine output. This was discussed with the patient. I will speak with her entry level sales consultant in [place] today to let them know that the appointment for this Monday will need to be rescheduled as the patient will not be able to make it. Continue to avoid nephrotoxins and avoid hypotension. Qualifiers: Acute renal failure type: with acute tubular necrosis Qualified Code(s): N17.0 - Acute kidney failure with tubular necrosis (2) Lower extremity edema Impression: This is secondary to the IV fluid she received for the hypotension initially. Responded well to IV Lasix yesterday and has had a negative fluid balance over the past few days. Her edema is improved today. We will hold off on further Lasix at this time but will reassess on a daily basis. I did inform her that this edema will improve as her renal function recovers and will take a few weeks. (3) Bacteremia Impression: Initial blood cultures from May 18 grew Staph epidermidis in the anaerobic and aerobic bottle from the same set. The other blood culture has been negative to date. We suspect this is likely contaminant and the IV vancomycin was disconti nued. (4) Depression Impression: Stable. We are continuing her home Abilify and Pristiq. (5) Neuropathy Impression: Stable. We will continue the lower dose of Lyrica until her renal function recovers. (6) Septic shock Impression: This was secondary to the C. difficile colitis. This is now resolved. (7) C. difficile colitis Impression: Resolved. She completed 10 days of oral vancomycin. (8) Altered mental status Impression: This is resolved. This was likely secondary to her medications such as Lyrica in a patient who had renal failure. Qualifiers: Altered mental status type: disorientation Qualified Code(s): R41.0 - Disorientation, unspecified
[2021-05-31] MEDS: ZOLPIDEM 5 MG TABLET PO SCH (21:29)
[2021-05-31] MEDS: ATORVASTATIN 10 MG TABLET PO SCH (21:29)
[2021-06-01] MEDS: SODIUM CHLORIDE FLUSH 0.9% 10 ML SYRINGE IVP SCH ×2 (00:40→07:56)
[2021-06-01] MEDS: PANTOPRAZOLE 40 MG TABLET PO SCH (05:37)
[2021-06-01 06:08] LABS: BASOPHILS % (AUTO) 1.1 %; EOSINOPHILS # (AUTO) 0.2 10^3/uL (0.0-0.7); EOSINOPHILS % (AUTO) 6.1 %; HGB - HEMOGLOBIN 9.1 g/dL (12.0-16.0); LYMPHOCYTES # (AUTO) 0.6 10^3/uL (1.5-3.5); MEAN CORPUSCULAR HEMOGLOBIN 29.6 pg (27.0-31.0); MEAN CORPUSCULAR HGB CONC 32.5 g/dL (32.0-36.0); MEAN CORPUSCULAR VOLUME 91.2 fL (81.0-99.0); MEAN PLATELET VOLUME 10.1 fL (7.9-10.8); MONOCYTES # (AUTO) 0.3 10^3/uL (0.0-1.0); MONOCYTES % (AUTO) 7.4 %; NEUTROPHILS # (AUTO) 2.6 10^3/uL (1.5-6.6); NEUTROPHILS % (AUTO) 67.8 %; PLT - PLATELET COUNT 159 10^3/uL (130-450); RED BLOOD COUNT 3.07 10^6/uL (4.20-5.40); RED CELL DISTRIBUTION WIDTH 15.4 % (12.0-15.0); WHITE BLOOD COUNT 3.8 x10^3/uL (4.8-10.8)
[2021-06-01 06:17] LABS: CALCIUM 8.2 mg/dL (8.5-10.3); CREATININE 4.8 mg/dL (0.4-1.0); PHOSPHORUS 6.2 mg/dL (2.5-4.6); POTASSIUM 3.7 mmol/L (3.5-5.0)
[2021-06-01] MEDS: HYDROXYCHLOROQUINE 200 MG TABLET PO SCH ×2 (07:55→16:14)
[2021-06-01] MEDS: SACCHAROMYCES BOULARDII 250 MG CAPSULE PO SCH ×2 (07:55→16:14)
[2021-06-01] MEDS: lamoTRIgine 100 MG TABLET PO SCH (07:55)
[2021-06-01] MEDS: ARIPiprazole 5 MG TABLET PO SCH (07:55)
[2021-06-01] MEDS: DESVENLAFAXINE SUCCINATE 50 MG PO SCH (07:56)
[2021-06-01] MEDS: PREGABALIN 100 MG CAPSULE PO SCH (07:56)
[2021-06-01] MEDS: HEPARIN 5,000 UNIT/ML VIAL SUBQ SCH ×2 (07:59→20:44)
--- NOTE | 2021-06-01 12:42 | PROVIDER PROGRESS NOTE ---
Assessment/Plan - Problem List (1) CARLOS (acute kidney injury) Assessment/Plan: She has acute renal failure secondary to ATN. Her creatinine today still remains high at 4.8. She has had excellent urine output each day and responded well to IV Lasix. Her electrolytes remain acceptable. Her bicarb is now within normal limits but her phosphorus is high. Will start CaCarbonate tid to treat the high PO4 and watch PO4 daily. Nephrology said they felt that we should see a downward trend in her creatinine before discharging her home. They did state that the creatinine can lag behind other evidence of renal recovery such as increased urine output. This was discussed with the patient. There is an appointment for next week in [place] with her provider, per our [facility] RN. Continue to avoid nephrotoxins and avoid hypotension. Qualifiers: Acute renal failure type: with acute tubular necrosis Qualified Code(s): N17.0 - Acute kidney failure with tubular necrosis (2) Lower extremity edema Impression: This is secondary to the IV fluid she received for the hypotension initially. Responded well to IV Lasix yesterday and has had a negative fluid balance over the past few days. Her edema is improved today. We will hold off on further Lasix at this time but will reassess on a daily basis. I did inform her that this edema will improve as her renal function recovers and will take a few weeks. (3) Bacteremia Impression: Initial blood cultures from May 18 grew Staph epidermidis in the anaerobic and aerobic bottle from the same set. The other blood culture has been negative to date. We suspect this is likely contaminant and the IV vancomycin was discontinued. (4) Depression Impression: Stable. We are continuing her home Abilify and Pristiq. (5) Neuropathy Impression: Stable. We will continue the lower dose of Lyrica until her renal function recovers. (6) Septic shock Impression: Resolved. This was secondary to the C. difficile colitis. (7) C. difficile colitis Impression: Resolved. She completed 10 days of oral vancomycin. (8) Altered mental status Impression: Resolved. This was likely secondary to her medications such as Lyrica in a patient who had renal failure. Qualifiers: Altered mental status type: disorientation Qualified Code(s): R41.0 - Disorientation, unspecified - Current Meds Current Meds: Current Medications Generic Name Dose Route Start Last Admin Trade Name Freq PRN Reason Stop Dose Admin Acetaminophen 650 mg 05/18/21 16:52 05/18/21 20:08 Acetaminophen 325 Mg Tablet PO 650 mg Q4HR PRN Administration Pain 1 to 4 Aripiprazole 10 mg 05/25/21 09:00 06/01/21 07:55 Aripiprazole 5 Mg Tablet PO 10 mg DAILY [facility] Administration Atorvastatin Calcium 10 mg 05/19/21 21:00 05/31/21 21:29 Atorvastatin 10 Mg Tablet PO 10 mg QPM [facility] Administration Heparin Sodium (Porcine) 5,000 unit 05/18/21 21:00 06/01/21 07:59 Heparin 5,000 Unit/Ml Vial SUBQ 5,000 unit BID [facility] Administration Hydroxychloroquine Sulfate 200 mg 05/29/21 17:00 06/01/21 07:55 Hydroxychloroquine 200 Mg Tablet PO 200 mg BIDWM [facility] Administration Lamotrigine 100 mg 05/19/21 09:00 06/01/21 07:55 Lamotrigine 100 Mg Tablet PO 100 mg DAILY [facility] Administration Lidocaine HCl 5 ml 05/20/21 11:03 05/21/21 06:33 Lidocaine Viscous 2% 15 Ml Udc MM 5 ml Q4H PRN Administration Mouth Sore Pain Mineral Oil 1 applic 05/18/21 19:36 05/19/21 18:45 Min Oil/Dimethicon/Coconut Oil 92 Gm Tube TOP 1 applic PRN PRN Administration Skin Care Oxycodone HCl 5 mg 05/18/21 18:09 05/29/21 22:00 Oxycodone 5 Mg Tablet PO 5 mg Q4HR PRN Administration PAIN Pantoprazole Sodium 40 mg 05/19/21 07:00 06/01/21 05:37 Pantoprazole 40 Mg Tablet PO 40 mg QDAC [facility] Administration Desvenlafaxine 1 each 05/26/21 09:00 06/01/21 07:56 Succinate [Pristiq PO 1 each Er] 50 Mg Tabs DAILY [facility] Administration Pregabalin 100 mg 05/25/21 09:00 06/01/21 07:56 Pregabalin 100 Mg Capsule PO 100 mg DAILY [facility] Administration Saccharomyces Boulardii 500 mg 05/26/21 17:00 06/01/21 07:55 Saccharomyces Boulardii 250 Mg Capsule PO 500 mg BIDWM [facility] Administration Zolpidem Tartrate 10 mg 05/29/21 21:00 05/31/21 21:29 Zolpidem 5 Mg Tablet PO 10 mg QPM [facility] Administration - Lab Result Fish Bone Diagrams: 06/01/21 05:34 06/01/21 05:34 - Additional Planning My Orders: My Active Orders 06/01/21 10:41 IV Discontinuation [RC] .ONCE 06/01/21 13:00 Calcium Carbonate [Tums] 500 mg PO TIDWM Subjective - Subjective Patient Reports: Feeling Better, Resting Comfortably (She is eager to go home (was visiting here from [place]).) Objective Vital Signs: Vital Signs - 24 hr 05/31/21 05/31/21 06/01/21 16:05 21:00 00:49 Temperature 36.5 C 36.5 C 36.6 C Heart Rate [ Brachial] Heart Rate [ 79 85 82 Monitoring electrodes] Respiratory 20 20 20 Rate Blood Pressure 149/94 H 129/76 128/71 [Right Brachial artery] O2 Saturation 94 93 92 06/01/21 06/01/21 06/01/21 05:00 07:44 12:18 Temperature 36.5 C 36.5 C 36.2 C L Heart Rate [ 84 78 Brachial] Heart Rate [ 78 Monitoring electrodes] Respiratory 20 20 18 Rate Blood Pressure 126/71 144/74 H 152/81 H [Right Brachial artery] O2 Saturation 93 94 94 Oxygen O2 Source [Without Activity] Room air O2 Source Room air I&O (Last 24 Hrs): Intake and Output Totals x24h 05/30/21 05/31/21 06/01/21 23:59 23:59 23:59 Intake Total 1220 1740 370 Output Total 2400 875 Balance -1180 865 370 General: Alert, Oriented x3 HEENT: Mucous membr. moist/pink, Other (Pale) Neck: Supple Neuro: Alert, Non Focal Cardiovascular: Regular rate, No murmurs Respiratory: No respiratory distress, Breath sounds nml Abdomen: Normal bowel sounds, Soft Extremities: Other (4+ edema to hips) - Results Results: Laboratory Results WBC 3.8 x10^3/uL (4.8-10.8) L 06/01/21 05:34 RBC 3.07 10^6/uL (4.20-5.40) L 06/01/21 05:34 Hgb 9.1 g/dL (12.0-16.0) L 06/01/21 05:34 Hct 28.0 % (37.0-47.0) L 06/01/21 05:34 MCV 91.2 fL (81.0-99.0) 06/01/21 05:34 MCH 29.6 pg (27.0-31.0) 06/01/21 05:34 MCHC 32.5 g/dL (32.0-36.0) 06/01/21 05:34 RDW 15.4 % (12.0-15.0) H 06/01/21 05:34 Plt Count 159 10^3/uL (130-450) 06/01/21 05:34 MPV 10.1 fL (7.9-10.8) 06/01/21 05:34 Neut # (Auto) 2.6 10^3/uL (1.5-6.6) 06/01/21 05:34 Lymph # (Auto) 0.6 10^3/uL (1.5-3.5) L 06/01/21 05:34 Cameron # (Auto) 0.3 10^3/uL (0.0-1.0) 06/01/21 05:34 Eos # (Auto) 0.2 10^3/uL (0.0-0.7) 06/01/21 05:34 Baso # (Auto) 0.0 10^3/uL (0.0-0.1) 06/01/21 05:34 Absolute Nucleated RBC 0.00 x10^3/uL 06/01/21 05:34 Total Counted 100 05/27/21 05:34 Band Neuts % (Manual) 1 % (0-10) 05/27/21 05:34 Abnorm Lymph % (Manual) 0 % 05/27/21 05:34 Metamyelocytes % 1 % (-0) H 05/25/21 04:34 Myelocytes % 1 % (-0) H 05/25/21 04:34 Nucleated RBC % 0.0 /100WBC 06/01/21 05:34 Neutrophils # (Manual) 4.3 10^3/uL (1.5-6.6) 05/27/21 05:34 Lymphocytes # (Manual) 1.0 10^3/uL (1.5-3.5) L 05/27/21 05:34 Monocytes # (Manual) 0.2 10^3/uL (0.0-1.0) 05/27/21 05:34 Eosinophils # (Manual) 0.2 10^3/uL (0-0.7) 05/27/21 05:34 Basophils # (Manual) 0.0 10^3/uL (0-0.1) 05/27/21 05:34 Differential Comment MANUAL DIFFERENTIAL 05/27/21 05:34 Manual Slide Review Indicated 05/26/21 06:16 WBC Morphology NORMAL APPEARANCE (NORMAL) 05/23/21 04:20 Platelet Estimate NORMAL (130-450,000) (NORMAL) 05/27/21 05:34 Platelet Morphology NORMAL APPEARANCE (NORMAL) 05/26/21 06:16 RBC Morph Micro Appear NORMAL APPEARANCE (NORMAL) 05/27/21 05:34 VBG pH 7.317 (7.31-7.41) 05/22/21 08:20 Ionized Calcium 1.13 mmol/L (1.15-1.33) L 05/22/21 08:20 Sodium 142 mmol/L (135-145) 06/01/21 05:34 Potassium 3.7 mmol/L (3.5-5.0) 06/01/21 05:34 Chloride 109 mmol/L (101-111) 06/01/21 05:34 Carbon Dioxide 24 mmol/L (21-32) 06/01/21 05:34 Anion Gap 9.0 (6-13) 06/01/21 05:34 BUN 31 mg/dL (6-20) H 06/01/21 05:34 Creatinine 4.8 mg/dL (0.4-1.0) H 06/01/21 05:34 Estimated GFR (MDRD) 9 (>89) L 06/01/21 05:34 Glucose 91 mg/dL (70-100) 06/01/21 05:34 Lactic Acid 0.8 mmol/L (0.5-2.2) 05/19/21 12:03 Calcium 8.2 mg/dL (8.5-10.3) L 06/01/21 05:34 Phosphorus 6.2 mg/dL (2.5-4.6) H 06/01/21 05:34 Magnesium 2.1 mg/dL (1.7-2.8) 05/31/21 04:44 Total Bilirubin 1.4 mg/dL (0.2-1.0) H 05/18/21 14:50 AST 23 IU/L (10-42) 05/18/21 14:50 ALT 22 IU/L (10-60) 05/18/21 14:50 Alkaline Phosphatase 75 IU/L (42-121) 05/18/21 14:50 Total Creatine Kinase 178 IU/L (22-269) 05/19/21 08:10 Troponin I High Sens 94.3 ng/L (2.3-14.8) H* 05/20/21 04:30 B-Natriuretic Peptide 293 pg/mL (5-100) H 05/24/21 08:58 Total Protein 6.1 g/dL (6.7-8.2) L 05/18/21 14:50 Albumin 2.5 g/dL (3.2-5.5) L 05/28/21 04:22 Globulin 2.8 g/dL (2.1-4.2) 05/18/21 14:50 Albumin/Globulin Ratio 1.2 (1.0-2.2) 05/18/21 14:50 Urine Color YELLOW 05/26/21 01:55 Urine Clarity CLEAR (CLEAR) 05/26/21 01:55 Urine pH 5.5 PH (5.0-7.5) 05/26/21 01:55 Ur Specific [place] 1.010 (1.002-1.030) 05/26/21 01:55 Urine Protein NEGATIVE mg/dL (NEGATIVE) 05/26/21 01:55 Urine Glucose (UA) NEGATIVE mg/dL (NEGATIVE) 05/26/21 01:55 Urine Ketones NEGATIVE mg/dL (NEGATIVE) 05/26/21 01:55 Urine Occult Blood TRACE-INTA (NEGATIVE) 05/26/21 01:55 Urine Nitrite NEGATIVE (NEGATIVE) 05/26/21 01:55 Urine Bilirubin NEGATIVE (NEGATIVE) 05/26/21 01:55 Urine Urobilinogen 0.2 (NORMAL) E.U./dL (NORMAL) 05/26/21 01:55 Ur Leukocyte Esterase TRACE (NEGATIVE) H 05/26/21 01:55 Urine RBC 0-5 /HPF (0-5) 05/26/21 01:55 Urine WBC 4-5 /HPF (0-5) 05/26/21 01:55 Ur Squamous Epith Cells MOD Squamous (<= Few) H 05/26/21 01:55 Urine Bacteria Rare /HPF (None Seen) 05/26/21 01:55 Urine Casts 3-5 Course Granular /LPF 05/18/21 20:30 Ur Microscopic Review INDICATED 05/18/21 20:30 Urine Culture Comments NOT INDICATED 05/18/21 20:30 Urine Sodium 64.0 mmol/L 05/26/21 02:23 Nasal Adenovirus (PCR) NOT DETECTED 05/18/21 16:07 Nasal B. parapertussis DNA (PCR) NOT DETECTED 05/18/21 16:07 Nasal Coronavir 229E PCR NOT DETECTED 05/18/21 16:07 Nasal Coronavir HKU1 PCR NOT DETECTED 05/18/21 16:07 Nasal Coronavir NL63 PCR NOT DETECTED 05/18/21 16:07 Nasal Coronavir OC43 PCR NOT DETECTED 05/18/21 16:07 Nasal Enterovir/Rhinovir PCR NOT DETECTED 05/18/21 16:07 Nasal Influenza B PCR NOT DETECTED 05/18/21 16:07 Nasal Influenza A PCR NOT DETECTED 05/18/21 16:07 Nasal Parainfluen 1 PCR NOT DETECTED 05/18/21 16:07 Nasal Parainfluen 2 PCR NOT DETECTED 05/18/21 16:07 Nasal Parainfluen 3 PCR NOT DETECTED 05/18/21 16:07 Nasal Parainfluen 4 PCR NOT DETECTED 05/18/21 16:07 Nasal RSV (PCR) NOT DETECTED 05/18/21 16:07 Nasal Screen MRSA (PCR) NEGATIVE (NEGATIVE) 05/19/21 17:55 Nasal B.pertussis DNA PCR NOT DETECTED 05/18/21 16:07 Nasal C.pneumoniae (PCR) NOT DETECTED 05/18/21 16:07 Praneeth Human Metapneumo PCR NOT DETECTED 05/18/21 16:07 Nasal M.pneumoniae (PCR) NOT DETECTED 05/18/21 16:07 Nasal SARS-CoV-2 (PCR) NOT DETECTED 05/18/21 16:07 Stl C. diff Tox B Gene POSITIVE (NEGATIVE) A* 05/19/21 05:05 Urine Opiates Screen NEGATIVE (NEGATIVE) 05/18/21 20:30 Ur Oxycodone Screen NEGATIVE (NEGATIVE) 05/18/21 20:30 Urine Methadone Screen NEGATIVE (NEGATIVE) 05/18/21 20:30 Ur Propoxyphene Screen NEGATIVE (NEGATIVE) 05/18/21 20:30 Ur Barbiturates Screen NEGATIVE (NEGATIVE) 05/18/21 20:30 Lamotrigine 3.3 mcg/mL (4.0-18.0) L 05/19/21 12:03 Ur Tricyclics Screen NEGATIVE (NEGATIVE) 05/18/21 20:30 Ur Phencyclidine Scrn NEGATIVE (NEGATIVE) 05/18/21 20:30 Ur Amphetamine Screen NEGATIVE (NEGATIVE) 05/18/21 20:30 U Methamphetamines Scrn NEGATIVE (NEGATIVE) 05/18/21 20:30 U Benzodiazepines Scrn NEGATIVE (NEGATIVE) 05/18/21 20:30 Urine Cocaine Screen NEGATIVE (NEGATIVE) 05/18/21 20:30 U Cannabinoids Screen NEGATIVE (NEGATIVE) 05/18/21 20:30 Ova & Parasites SEE NOTE 05/18/21 23:18 Ref Lab Test Result REPORT 05/18/21 23:18 Sepsis Event Note (H) - Evaluation Current Stage of Sepsis: Resolved Possible source of Sepsis: positive: GI tract/intra-abdominal - Sepsis Criteria Sepsis Criteria: WBC count greater than 12,000 or less than 4000, MATERIALS DIRECTOR: altered consciousness (unrelated to primary neuro pathology), SBP drop more than 40mHg, SBP less than 90 mmHg, Renal: urine output less than 0.5ml/kg/hr for 2 hours or creatinine gr
[2021-06-01] MEDS: CALCIUM CARBONATE CHEW 500 MG TABLET PO SCH ×2 (13:14→16:14)
[2021-06-01] MEDS: ZOLPIDEM 5 MG TABLET PO SCH (20:43)
[2021-06-01] MEDS: ATORVASTATIN 10 MG TABLET PO SCH (20:43)
[2021-06-02] MEDS: PANTOPRAZOLE 40 MG TABLET PO SCH (06:05)
[2021-06-02 06:09] LABS: BASOPHILS % (AUTO) 0.8 %; EOSINOPHILS # (AUTO) 0.2 10^3/uL (0.0-0.7); EOSINOPHILS % (AUTO) 6.4 %; HGB - HEMOGLOBIN 9.1 g/dL (12.0-16.0); LYMPHOCYTES # (AUTO) 0.6 10^3/uL (1.5-3.5); LYMPHOCYTES % (AUTO) 17.7 %; MEAN CORPUSCULAR HEMOGLOBIN 29.9 pg (27.0-31.0); MEAN CORPUSCULAR HGB CONC 32.5 g/dL (32.0-36.0); MEAN CORPUSCULAR VOLUME 92.1 fL (81.0-99.0); MEAN PLATELET VOLUME 10.6 fL (7.9-10.8); MONOCYTES # (AUTO) 0.3 10^3/uL (0.0-1.0); MONOCYTES % (AUTO) 7.2 %; NEUTROPHILS # (AUTO) 2.4 10^3/uL (1.5-6.6); NEUTROPHILS % (AUTO) 67.3 %; PLT - PLATELET COUNT 142 10^3/uL (130-450); RED BLOOD COUNT 3.04 10^6/uL (4.20-5.40); RED CELL DISTRIBUTION WIDTH 15.6 % (12.0-15.0); WHITE BLOOD COUNT 3.6 x10^3/uL (4.8-10.8)
[2021-06-02 06:20] LABS: CALCIUM 8.5 mg/dL (8.5-10.3); CREATININE 4.3 mg/dL (0.4-1.0); PHOSPHORUS 5.8 mg/dL (2.5-4.6)
[2021-06-02 07:42] VITALS: BP 146/74
[2021-06-02] MEDS: lamoTRIgine 100 MG TABLET PO SCH (08:32)
[2021-06-02] MEDS: PREGABALIN 100 MG CAPSULE PO SCH (08:32)
[2021-06-02] MEDS: CALCIUM CARBONATE CHEW 500 MG TABLET PO SCH ×2 (08:32→11:59)
[2021-06-02] MEDS: SACCHAROMYCES BOULARDII 250 MG CAPSULE PO SCH (08:32)
[2021-06-02] MEDS: HEPARIN 5,000 UNIT/ML VIAL SUBQ SCH (08:33)
[2021-06-02] MEDS: HYDROXYCHLOROQUINE 200 MG TABLET PO SCH (08:33)
[2021-06-02] MEDS: DESVENLAFAXINE SUCCINATE 50 MG PO SCH (08:33)
[2021-06-02] MEDS: ARIPiprazole 5 MG TABLET PO SCH (08:33)
--- NOTE | 2021-06-02 10:28 | Discharge Plan ---
Discharge Plan Problem Reviewed?: Yes Disposition: Home, Self Care Condition: Fair Prescriptions: Furosemide [Lasix] 40 mg PO DAILY #30 tablet Calcium Carbonate [Tums (Calcium Carbonate 500mg)] 500 mg PO TIDWM #33 tablet Diet: Low Sodium Activity Restrictions: Activity as Tolerated Shower Restrictions: No Assistance Devices: Walker Weight Bearing: Full Weight Instruction Topics: Kidney Failure Self Care, Kidney Disease Potassium, Kidney Disease Calcium Phosphorus, Kidney Disease Right Protein, Kidney Disease Fluids, Kidney Disease Avoid High Sodium Health Concerns: You were admitted to the hospital with sepsis which was caused by C.diff diarrhea. Due to this, you had severely low blood pressure which caused kidney failure. You are being discharged on new medications and urged to keep the appointment with the new kidney specialist when you get home to [place]. Follow the current list of medications of what you should take; some of your previous medications have been stopped (like the Losartan). The new prescriptions were electronically sent to the [facility] pharmacy in [place]. Plan of Treatment: As above. Care Goals: Improvement in symptoms and stabilization are the goals. Assessment: The patient and at bedside understand and are agreeable with the plan. No Smoking: If you smoke, Please STOP! Call for help.
--- NOTE | 2021-06-02 10:41 | DISCHARGE SUMMARY ---
Discharge Summary Admit Date: 05/18/21 Discharge Date: 06/02/21 Discharging Provider: Dr Marjorie Mendiola Primary Care Provider: Chris Cobb MoiKIMI blackburn Code Status: Do Not Attempt Resuscitation Condition at Discharge: Fair Discharge Disposition: 01 Home, Self Care - HPI History of Present Illness: From the admission H&P of Patrick Espinosa SUBSTANCE ABUSE SERVICES DIRECTOR: This is a 66-years old white female with a past medical history significant for Hypertension, rheumatoid arthritis, depression and anxiety, and obesity, who presents to ER complaining of diarrhea and is delirious. Now patient is alert and orientated. She reported she travel from [place] to [place] and [facility] to visit her family. She had Cipro antibiotics which was prescribed at April 21 for a urinary tract infection. She has taken 1 week Cipro. She suddenly had diarrhea last week Monday. Then she developed nausea and vomiting on Monday. She also visited a walk-in clinic yesterday. She became delirious today. She took some Imodium but only had little improvement. She denies fever, but reported chills. She denied chest pain, shortness of breathing. She also reports right lower quadrant abdominal pain. She denies history of heart issue or diabetic disease. In the ER, her systolic blood pressure was down to 60 mmHg. On routine laboratory tests, patient had slightly elevated WBC at 11, creatinine is 3.1, her creatinine just yesterday was 1.1. Her Lactic acid is normal at 1.3. Patient was given 3 L normal saline in the ER, and her systolic blood pressure adam to 93 mmHg. Now her systolic blood pressure dropped again. She is being admitted for dehydration from diarrhea, and for managing CARLOS. I discussed the care plan and care goals with patient. Patient clearly requests DNR for her code status - HOSPITAL COURSE Hospital Course: (1) Septic shock Systolic blood pressure remained low at 70-80 systolic. Patient could not be aggressively administered further IV hydration due to crackles on auscultation of the lungs. She was transferred to the ICU and started on Levophed. Her stool C. difficile test came back positive. A CT of the abdomen/pelvis showed moderate circumferential wall thickening involving mid to distal descending colon and sigmoid colon with pericolonic fat stranding. Findings were consistent with infectious versus inflammatory colitis, felt to be secondary to C. difficile colitis. The blood cultures subsequently also came back growing gram- positive cocci. She was on vancomycin iv and po with pharmacy dosing these. She required Levophed to keep MAP greater than 60 and got gentle IV hydration with normal saline at 100 mL/h. Her repeat lactic acid was 0.8. She was eventually off Levophed and out of the ICU. (2) C. difficile colitis Her diarrhea resolved. She completed 10 days of oral vancomycin. (3) CARLOS (acute kidney injury) She had acute renal failure with ATN. Her creatinine of 3.3 initially improved to 1.8 by 05/22/21, then worsened again and adam as high at 5.2 on 05/27/21. We contacted Nephrology at [facility] who advised ongoing hydration. Her creat remained at 5.1>> 5.0 for 5 days. She required bicarb. Her PCP in [place] was contacted and discussion was to have her see Nephrology as soon as possible after return home by plane. Lasix iv was started and given intermittently, for the anasarca and she had good urine output each day and her electrolytes remained acceptable. Nephrology locally was contacted again and felt that we ne eded see a downward trend in her creatinine before discharging her home. The creatinine can lag behind other evidence of renal recovery, such as increased urine output. This was discussed with the patient. We started CaCarbonate tid to treat high PO4 and low Calcium. Finally, her creat started to trend down (5>> 4.8>> 4.3) and she was discharged. There is an appointment in 5 days in [place] with her new Nephrology provider, per our [facility] RN. She was advised to continue to avoid nephrotoxins and she had a new list of medications at discharge. (4) Lower extremity edema She developed 4+ leg edema to her hips and also hand swelling. This was secondary to the IV fluid she received for the initial hypotension. She was given intermittent IV Lasix and her edema slightly improved. We did inform her that this edema should improve as her renal function recovers and could take a few weeks. At discharge, she was given Lasix po to use intermittently for some diuresis until seen by Nephrology in [place], [place] is several days. (5) Bacteremia Initial blood cultures from admission day, May 18, grew Staph epidermidis in the anaerobic and aerobic bottle from the same set. The other blood culture have been negative to date. We suspected this as likely contaminant and the IV vancomycin was discontinued. (6) Depression Stable. We continued her home Abilify and Pristiq. (7) Neuropathy Stable. We continued only the lower dose of Lyrica until her renal function recovers. (8) Altered mental status (Disorientation R41.0) Resolved. This was likely secondary to using Lyrica, and from septic shock and renal failure. - ALLERGIES Allergies/Adverse Reactions: Allergies Allergy/AdvReac Type Severity Reaction Status Date / Time No Known Drug Allergies Allergy Verified 05/18/21 14:01 - MEDICATIONS Home Medications: Ambulatory Orders Medication Instructions Recorded Confirmed ARIPiprazole [Aripiprazole] 10 mg PO DAILY 05/18/21 05/18/21 Acyclovir [Zovirax] 1 applic TOP 5XD PRN 05/18/21 05/18/21 Cholecalciferol [Vitamin D3] 50 mcg PO DAILY 05/18/21 05/18/21 Clobetasol Propionate [Temovate] 1 applic TP BID PRN 05/18/21 05/18/21 Desvenlafaxine Succinate [Pristiq] 50 mg PO DAILY 05/18/21 05/18/21 Diclofenac Sodium [Voltaren 2 gm TP QID PRN 05/18/21 05/18/21 Arthritis Pain] Docosanol [Abreva] 1 applic TP ONCE PRN 05/18/21 05/18/21 Esomeprazole Magnesium [Nexium] 40 mg PO DAILY 05/18/21 05/18/21 Eszopiclone [Lunesta] 3 mg PO QPM 05/18/21 05/18/21 Hydroxychloroquine [Plaquenil] 200 mg PO BIDWM 05/18/21 05/18/21 Loteprednol Etabonate 1 drops EACHEYE BID PRN 05/18/21 05/18/21 Loteprednol Etabonate [Lotemax] 1 applic EACHEYE DAILY PRN 05/18/21 05/18/21 Multivitamin/Iron/Folic Acid 1 each PO DAILY 05/18/21 05/18/21 [Centrum Women Tablet] Pregabalin [Lyrica] 200 mg PO DAILY 05/18/21 05/18/21 Simvastatin [Zocor] 10 mg PO QPM 05/18/21 05/18/21 Triamcinolone 0.5% Cream [Kenalog 1 applic TOP TID PRN 05/18/21 05/18/21 0.5% Cream] Valacyclovir HCl [Valtrex] 500 mg PO DAILY PRN 05/18/21 05/18/21 lamoTRIgine [LaMICtal] 100 mg PO DAILY 05/18/21 05/18/21 traMADol [Ultram] 50 mg PO Q4-6H PRN 05/18/21 05/18/21 Calcium Carbonate [Tums (Calcium 500 mg PO TIDWM #33 tablet 06/02/21 Carbonate 500mg)] Furosemide [Lasix] 40 mg PO DAILY #30 tablet 06/02/21 - PHYSICAL EXAM AT DISCHARGE General Appearance: positive: No acute distress, Alert Eyes Bilateral: positive: Normal inspection, EOMI ENT: positive: ENT inspection nml, No signs of dehydration Neck: positive: Nml inspection, No JVD Respiratory: positive: No respiratory distress, Breath sounds nml Cardiovascular: positive: Regular rate & rhythm, No murmur Abdomen: positive: Non-tender, Nml bowel sounds (Obese with a pannus) Skin: positive: Warm, Dry Extremities: positive: Other (3+ leg edema, 1+ hand edema) Neurologic/Psychiatric: positive: Oriented x3, Other (Poor memory was noted) - LABS Result Diagrams: 06/02/21 05:29 06/02/21 05:29 - SEPSIS Current Stage of Sepsis: Resolved Possible source of Sepsis: GI tract/intra-abdominal Sepsis Criteria: WBC count greater than 12,000 or less than 4000, REPOSSESSION AGENT: altered consciousness (unrelated to primary neuro pathology), SBP drop more than 40mHg, SBP less than 90 mmHg, Renal: urine output less than 0.5ml/kg/hr for 2 hours or creatinine gr - FOLLOW UP Follow Up: Her PCP is Dr Venecia Holcomb at [phone] in [place], [place]. She will be seen at the Nephrology clinic in [place] with [facility]. . . She has an appointment there in 5 days. - TIME SPENT Time Spent in Discharge (Minutes): 60
== END 2021-06-02 12:40 | disposition home or self-care (01) | DRG 371 ==
LOC: ED 13:51 → MS2 16:52 → ICU 05-19 08:54 → MS2 05-31 10:52
PROVIDERS: ADMIT Nurse Practitioner Gerontology; ATTEND Internal Medicine
PROC: 02H633Z Insertion of Infusion Device into Right Atrium, Percutaneous Approach (ICD-10-PCS; principal; 2021-05-19)
DX: N17.9 Acute kidney failure, unspecified (principal); E86.0 Dehydration; I95.9 Hypotension, unspecified; R41.82 Altered mental status, unspecified; R19.7 Diarrhea, unspecified; A04.72 Enterocolitis due to Clostridium difficile, not specified as recurrent; Z20.822 Contact with and (suspected) exposure to COVID-19; A41.89 Other specified sepsis; R65.21 Severe sepsis with septic shock; N17.0 Acute kidney failure with tubular necrosis; I24.8 Other forms of acute ischemic heart disease; E87.0 Hyperosmolality and hypernatremia; R60.0 Localized edema; F32.9 Major depressive disorder, single episode, unspecified; R41.0 Disorientation, unspecified; I10 Essential (primary) hypertension; F41.9 Anxiety disorder, unspecified; E66.9 Obesity, unspecified; M06.9 Rheumatoid arthritis, unspecified; Z66 Do not resuscitate; Z87.440 Personal history of urinary (tract) infections; E86.1 Hypovolemia; B00.9 Herpesviral infection, unspecified; G62.9 Polyneuropathy, unspecified; Z68.38 Body mass index [BMI] 38.0-38.9, adult
CPT/HCPCS: 36415; 71045; 74176; 76770; 80048; 80053; 80175; 80306; 81001; 81599; 82040; 82330; 82550; 83605; 83735; 83880; 84100; 84132; 84300; 84484; 85025; 87040; 87150; 87177; 87181; 87209; 87493; 87631; 93306; 96360; 97110; 97116; 97162; 97530; 99284; 99285; A6250; A9270; J3370; J8499; 0202U; 81003; 87045; 87046; 87086